=== PATIENT | male | born 1950 | race Caucasian/White ===

== ENCOUNTER 2017-09-10 09:45 | Inpatient (IN) ==
[~2017-09-10 09:45] MED LIST: *HR* Midazolam HCl 5 MG/5 ML VIAL IVP ONE
[2017-09-10] MEDS ORDERED: Ondansetron 4 MG/2 ML VIAL IVP ONE (10:05)
[2017-09-10] MEDS ORDERED: *HR* HYDROmorphone (PF) 1 MG/ML SYRINGE IVP ONE ×4 (10:05→13:22)
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
[2017-09-10] MEDS ORDERED: *HR* Morphine 2 MG/ML SYRINGE IVP ONE (12:02)
[2017-09-10] MEDS ORDERED: Lidocaine -MPF 2% 5 ML VIAL ONE (12:20)
[2017-09-10 12:27] LABS: Bilirubin,Urine Negative (Negative); Blood,Urine Negative (Negative); Clarity,Urine Clear (Clear); Color,Urine Yellow (Yellow); Glucose,Urine (UA) Normal (Normal); Ketones,Urine Negative (Negative); Leukocyte Esterase,Urine Negative (Negative); Nitrite,Urine Negative (Negative); PH,Urine 5.5 pH Units (5.0-8.0); Protein,Urine Negative (Neg-Trace); Specific Gravity,Urine 1.024 (1.010-1.025); Urobilinogen,Urine Normal (Normal)
[2017-09-10] MEDS ORDERED: cefTRIAXone 1,000 MG in Water for inj. (sterile) 10 ML IVP ONE (12:39)
[2017-09-10 12:50] LABS: Source,Synovial Fluid RIGHT KNEE
[2017-09-10 13:21] LABS: BUN/Creatinine Ratio 26 (6-26); Blood Urea Nitrogen 33 mg/dL (8-26); Calcium 9.2 mg/dL (8.6-10.8); Carbon Dioxide 25 mEq/L (19-29); Chloride 99 mEq/L (98-109); Glucose 278 mg/dL (70-99); Osmolality,Calculated 295 (280-300); Potassium 4.6 mEq/L (3.5-4.5); Sodium 134 mEq/L (136-145); eGFR For African Americans > 60 (> 60); eGFR For Non-African Americans 57 (> 60)
[2017-09-10] MEDS ORDERED: *HR* HYDROmorphone (PF) 1 MG/ML SYRINGE ONE (13:27)
[2017-09-10 13:54] LABS: Appearance,Synovial Fluid Cloudy (Clear-Hazy); Color,Synovial Fluid Straw (Straw)
[2017-09-10] MEDS ORDERED: Ondansetron 4 MG/2 ML VIAL IVP PRN (14:25)
[2017-09-10] MEDS ORDERED: Acetaminophen 325 MG TABLET PO PRN (14:25)
[2017-09-10] MEDS ORDERED: Naloxone 0.4 MG/ML INJ IVP PRN (14:25)
[2017-09-10] MEDS ORDERED: D5% in Water 1,000 ML IVC PRN (14:30)
[2017-09-10] MEDS ORDERED: *HR* Dextrose 50 % in Water (Syg) 50 ML SYRINGE IVP PRN (14:30)
[2017-09-10] MEDS ORDERED: Dextrose Gel 15 GM PO PRN ×2 (14:30)
[2017-09-10] MEDS: Vancomycin 1,500 MG in D5% in Water 250 ML IVPB SCH (14:55)
[2017-09-10] MEDS: *HR* Morphine 2 MG/ML SYRINGE IVP PRN ×2 (14:55→20:16)
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
[2017-09-10] MEDS: 0.9 % Sodium Chloride 1,000 ML IVC SCH (15:08)
[2017-09-10] MEDS: Insulin LISPRO 300 UNITS/3 ML VIAL SQ SCH ×2 (17:13→20:11)
[2017-09-10] MEDS: Piperacillin/Tazobactam 3.375 GM in D5% in Water 50 ML IVPB SCH (17:14)
[2017-09-10] MEDS ORDERED: *HR* HYDROmorphone (PF) 1 MG/ML SYRINGE IVP PRN (17:26)
[2017-09-10] MEDS: *HR* HYDROcodone/Acet 5/325 mg TABLET PO PRN (18:08)
[2017-09-11] MEDS: *HR* Morphine 2 MG/ML SYRINGE IVP PRN ×5 (00:24→19:49)
[2017-09-11] MEDS: Vancomycin 1,500 MG in D5% in Water 250 ML IVPB SCH ×2 (00:24→12:31)
[2017-09-11] MEDS: Piperacillin/Tazobactam 3.375 GM in D5% in Water 50 ML IVPB SCH ×4 (00:25→23:21)
[2017-09-11] MEDS: *HR* HYDROcodone/Acet 5/325 mg TABLET PO PRN ×4 (01:47→23:09)
[2017-09-11] MEDS: 0.9 % Sodium Chloride 1,000 ML IVC SCH ×2 (04:46→18:36)
[2017-09-11 05:45] LABS: Hematocrit 36.5 % (37.5-50.1); Hemoglobin 11.7 g/dL (12.9-16.9); Mean Corpuscular HGB Conc 32.1 g/dL (31.6-35.5); Mean Platelet Volume 10.5 fL (9.4-12.4)
[2017-09-11 05:47] LABS: Mean Corpuscular Hemoglobin 28.2 pg (28.0-33.3); Platelet Count 185 K/mcL (140-400); Red Blood Count 4.15 M/mcL (4.19-5.50); Red Cell Distribution Width 14.1 % (11.5-14.5)
[2017-09-11 05:58] LABS: BUN/Creatinine Ratio 24 (6-26); Blood Urea Nitrogen 29 mg/dL (8-26); Calcium 8.8 mg/dL (8.6-10.8); Carbon Dioxide 23 mEq/L (19-29); Chloride 99 mEq/L (98-109); Glucose 214 mg/dL (70-99); Magnesium 1.6 mg/dL (1.6-2.6); Osmolality,Calculated 288 (280-300); Sodium 133 mEq/L (136-145); eGFR For African Americans > 60 (> 60); eGFR For Non-African Americans > 60 (> 60)
[2017-09-11 06:08] LABS: Lymphocytes # 6.1 K/mcL (0.6-4.6); Neutrophils # 17.2 K/mcL (1.6-8.9); Platelet Estimate Normal (Normal); Reactive Lymphocytes Present (Not Present)
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
[2017-09-11] MEDS: Aspirin Enteric Coated 81 MG Tablet PO SCH (07:54)
[2017-09-11] MEDS: Insulin LISPRO 300 UNITS/3 ML VIAL SQ SCH ×4 (07:55→20:54)
--- NOTE | 2017-09-11 12:02 | Internal Med Progress Note ---
Date of Encounter: 09/11/17 Time of Encounter: 10:00 - Assessment and plan (1) Septic joint Current Visit: Yes Status: Acute Assessment and plan: Acute right knee septic joint - with possible prosthetic joint infection - right knee pain has improved Continue IV Zosyn, IV Vancomycin, IV Morphine as needed for pain CT of the right knee - reviewed S/p right knee joint aspiration done in the ED Orthopedics consult - scheduled for surgery tomorrow Labs in a.m., monitor closely Qualifiers: Septic arthritis location: knee Septic arthritis organism: due to unspecified organism Laterality: right Qualified Code(s): M00.9 - Pyogenic arthritis, unspecified (2) TITUS (acute kidney injury) Current Visit: Yes Status: Acute Assessment and plan: Acute kidney injury likely secondary to sepsis and septic joint - now back to baseline Continue IV fluids, repeat labs in a.m. Zestril can be be restarted today (3) Diabetes mellitus Current Visit: Yes Status: Chronic Assessment and plan: Type 2 diabetes mellitus, [id number], hyperglycemia Continue insulin sliding scale, glucose checks Qualifiers: Diabetes mellitus type: type 2 Diabetes mellitus complication status: without complication Diabetes mellitus penitentiary insulin use: without emt intermediate use Qualified Code(s): E11.9 - Type 2 diabetes mellitus without complications (4) HTN (hypertension) Current Visit: Yes Status: Chronic Assessment and plan: Essential hypertension, controlled, monitor Continue home dose of Zestril Qualifiers: Hypertension type: essential hypertension Qualified Code(s): I10 - Essential (primary) hypertension (5) DVT prophylaxis Current Visit: Yes Status: Acute Assessment and plan: Continue heparin subcutaneous - Time Spent With Patient 25 - 35 minutes - Subjective Interval history: Examined this morning. Patient is awake and alert. Not in any distress. Tolerating oral diet. Denies chest pain or shortness of breath. No fever. Hemodynamically stable. Complains of mild pain and swelling over right knee. No other acute events or complaints. Admitted yesterday for right knee septic joint. Possible infection of prosthetic joint. Continue IV buttocks for now. Scheduled for surgery tomorrow. Orthopedics following. - Constitutional Vitals: Temp Pulse Resp BP Pulse Ox 98.3 F 112 18 112/66 93 09/11/17 11:21 09/11/17 11:21 09/11/17 11:21 09/11/17 11:21 09/11/17 11:21 General appearance: Present: cooperative, A&O X 3, pleasant, no acute distress, answers questions appropriately - Head Head exam: Present: atraumatic - Eye Eye exam: Present: EOMI - ENT ENT exam: Present: mucous membranes moist - Respiratory Respiratory exam: Present: CTAB. Absent: accessory muscle use, chest wall tenderness, rales, rhonchi, wheezes, tachypnea - Cardiovascular Cardiovascular exam: Present: RRR, +S1, +S2 - GI/Abdominal GI/Abdominal exam: Present: soft. Absent: distended, firm, guarding, tenderness - Extremities Exam Extremities exam: Present: radial pulses palpable and symmetrical. Absent: calf tenderness, cyanotic, pedal edema Additional comments: Status post right BKA, distal third tibial stump with no evidence of erythema or concern for infection. Patient does have significant swelling and tenderness over right knee. - Neurological Exam Neurological exam: Present: alert, oriented X3, no focal deficits. Absent: facial droop, speech deficit Internal Medicine: Result - Labs CBC & Chem 7: 09/11/17 05:20 09/11/17 05:20 Labs: Short CBC 09/11/17 Range/Units 05:20 WBC 25.3 H (4.3-11.1) K/mcL Hgb 11.7 L (12.9-16.9) g/dL Hct 36.5 L (37.5-50.1) % Plt Count 185 (140-400) K/mcL Neutrophils # 17.2 H (1.6-8.9) K/mcL BMP 09/11/17 05:20 Sodium 133 L Potassium 4.0 Chloride 99 Carbon Dioxide 23 BUN 29 H Creatinine 1.20 Glucose 214 H Calcium 8.8 - VTE Documentation of Mechanical Device: Intermittent pneumatic compression device Consult Discharge Plan - Plan Referrals: Casey Monroy DO [Primary Care Provider] -
[2017-09-11] MEDS ORDERED: *HR* Morphine 2 MG/ML SYRINGE IVP ONE (12:26)
[2017-09-11 14:11] LABS: Acinetobacter baumannii by PCR Not Detected (Not Detect); Candida albicans by PCR Not Detected (Not Detect); Candida glabrata by PCR Not Detected (Not Detect); Candida krusei by PCR Not Detected (Not Detect); Candida parapsilosis by PCR Not Detected (Not Detect); Enterococcus by PCR Not Detected (Not Detect); Escherichia coli by PCR Not Detected (Not Detect); Klebsiella oxytoca by PCR Not Detected (Not Detect); Klebsiella pneumoniae by PCR Not Detected (Not Detect); Pseudomonas aeruginosa by PCR Not Detected (Not Detect); Serratia marcescens by PCR Not Detected (Not Detect); Staphylococcus aureus by PCR Not Detected (Not Detect); Streptococcus agalactiae(B)PCR Not Detected (Not Detect); Streptococcus by PCR ***DETECTED*** (Not Detect); Streptococcus pneumoniae PCR Not Detected (Not Detect); Streptococcus pyogenes (A) PCR Not Detected (Not Detect); blaKPC Carbapenem-Resist Gene Not Detected (Not Detect); mecA Methicillin-Resist Gene Not Detected (Not Detect); vanA/B Vancomycin-Resist Genes Not Detected (Not Detect)
[2017-09-11 14:12] LABS: Candida tropicalis by PCR Not Detected (Not Detect)
[2017-09-11] MEDS: *HR* Heparin 5,000 UNIT/ML VIAL SQ SCH (16:35)
[2017-09-11] MEDS: Lisinopril 20 MG TABLET PO SCH (21:35)
[2017-09-12] MEDS: Vancomycin 1,500 MG in D5% in Water 250 ML IVPB SCH ×2 (01:41→14:37)
[2017-09-12] MEDS: *HR* Morphine 2 MG/ML SYRINGE IVP PRN ×2 (05:34→16:19)
[2017-09-12] MEDS: *HR* Heparin 5,000 UNIT/ML VIAL SQ SCH ×2 (05:34→22:55)
[2017-09-12 05:48] LABS: Basophils % 0.2 %; Hematocrit 33.7 % (37.5-50.1); Hemoglobin 10.8 g/dL (12.9-16.9); Immature Granulocytes % 1.1 % (0-4); Lymphocytes # 3.7 K/mcL (0.6-4.6); Lymphocytes % 18.3 %; Mean Corpuscular Volume 87.3 fL (83.0-100.0); Mean Platelet Volume 10.7 fL (9.4-12.4); Monocytes # 1.6 K/mcL (0.0-1.3); Monocytes % 7.9 %; Neutrophils # 14.8 K/mcL (1.6-8.9); Platelet Count 174 K/mcL (140-400); Red Blood Count 3.86 M/mcL (4.19-5.50); Red Cell Distribution Width 13.9 % (11.5-14.5); Segmented Neutrophils % 72.5 %
[2017-09-12 06:09] LABS: BUN/Creatinine Ratio 23 (6-26); Blood Urea Nitrogen 24 mg/dL (8-26); Calcium 8.7 mg/dL (8.6-10.8); Carbon Dioxide 24 mEq/L (19-29); Chloride 99 mEq/L (98-109); Glucose 213 mg/dL (70-99); Osmolality,Calculated 284 (280-300); Potassium 3.9 mEq/L (3.5-4.5); Sodium 132 mEq/L (136-145); eGFR For African Americans > 60 (> 60); eGFR For Non-African Americans > 60 (> 60)
--- NOTE | 2017-09-12 07:45 | Orthopedics Progress Note ---
Date of Encounter: 09/12/17 Time of Encounter: 07:44 Subjective Interval history: Patient seen this morning positive blood cultures for surgery today for 1 stage revision based on positive blood cultures. Cultures for knee still pending. Objective Vital signs: Vital Signs Temp Pulse Resp BP Pulse Ox 09/12/17 06:40 98.8 F 102 16 148/87 96 09/12/17 03:50 99.2 F 108 18 155/83 94 09/11/17 23:47 99.0 F 118 18 151/81 95 09/11/17 22:27 99.2 F 121 18 154/80 94 09/11/17 21:40 98.2 F 121 18 162/86 96 09/11/17 20:00 97 09/11/17 19:00 99.1 F 113 16 108/51 97 09/11/17 15:01 99.8 F H 115 20 115/55 93 09/11/17 13:34 102/62 09/11/17 11:21 98.3 F 112 18 112/66 93 Intake and Output 09/11/17 09/11/17 09/12/17 15:59 23:59 07:59 Intake Total 1150 / 1150 540 / 540 300 / 300 Output Total 300 / 300 550 / 550 200 / 200 Balance 850 / 850 -10 / -10 100 / 100 Intake: IV Fluids 1050 / 1050 300 / 300 300 / 300 0.9 % Sodium Chloride 1,000 ML 1000 / 1000 @ 100 mls/hr IVC .Q10H [place] Rx#: [id number] Zosyn 3.375 GM In Dextrose 5% ( 50 / 50 50 / 50 50 / 50 ADD-[place]) 50 ML @ 12.5 mls/ hr IVPB Q8HR [place] Rx#:[id number] Vancocin 1,500 MG In Dextrose 5 250 / 250 250 / 250 % 250 ML @ 166.67 mls/hr IVPB Q12H [place] Rx#:[id number] Oral 100 / 100 240 / 240 Output: Urine 300 / 300 550 / 550 200 / 200 Other: Meal Lunch Dinner Percent of Meal Consumed 10% 50% Weight 90 kg Blood Glucose* 226 191 190 Patient Weight 09/12/17 23:59 Weight 90 kg - Labs CBC & BMP: 09/12/17 04:53 09/12/17 04:53 Labs: Abnormal lab results WBC 20.4 K/mcL (4.3-11.1) H 09/12/17 04:53 RBC 3.86 M/mcL (4.19-5.50) L 09/12/17 04:53 Hgb 10.8 g/dL (12.9-16.9) L 09/12/17 04:53 Hct 33.7 % (37.5-50.1) L 09/12/17 04:53 Band Neutrophils % 10.0 % (0-4) H 09/11/17 05:20 Neutrophils # 14.8 K/mcL (1.6-8.9) H 09/12/17 04:53 Monocytes # 1.6 K/mcL (0.0-1.3) H 09/12/17 04:53 Reactive Lymphocytes Present (Not Present) A 09/11/17 05:20 ESR 67 mm/hr (0-10) H 09/11/17 05:20 Sodium 132 mEq/L (136-145) L 09/12/17 04:53 Glucose 213 mg/dL (70-99) H 09/12/17 04:53 POC Glucose 191 (58-89) H 09/11/17 20:06 C-Reactive Protein 424 mg/L (Less than 5) H 09/11/17 05:20 Synovial Appearance Cloudy (Clear-Hazy) A 09/10/17 12:48 Synovial RBC 0.196 M/mcl (0.000-0.002) H 09/10/17 12:48 Synovial Tot Nuc Cell > [id number] TNC/mcL (0-200) H 09/10/17 12:48 Streptococcus sp PCR DETECTED (Not Detect) A 09/10/17 12:22 - VTE Documentation of Mechanical Device: Intermittent pneumatic compression device Consult Discharge Plan - Plan Referrals: Casey Monroy DO [Primary Care Provider] -
[2017-09-12] MEDS ORDERED: Aminoglycoside Consult 1 EACH MC ONE (08:05)
[2017-09-12] MEDS: Piperacillin/Tazobactam 3.375 GM in D5% in Water 50 ML IVPB SCH ×2 (08:09→22:55)
[2017-09-12] MEDS: Lisinopril 20 MG TABLET PO SCH (08:09)
[2017-09-12] MEDS: Insulin LISPRO 300 UNITS/3 ML VIAL SQ SCH ×3 (08:09→22:55)
[2017-09-12] MEDS: Aspirin Enteric Coated 81 MG Tablet PO SCH (08:11)
[2017-09-12] MEDS ORDERED: Lidocaine Viscous Oral Soln 15 ML SOLUTION MM PRN (10:31)
[2017-09-12] MEDS ORDERED: *HR* FentaNYL (PF) 100 MCG/2 ML VIAL IVP PRN (10:31)
[2017-09-12] MEDS ORDERED: 0.9 % Sodium Chloride 500 ML IVC ONE (10:32)
[2017-09-12] MEDS ORDERED: *HR* Midazolam HCl 5 MG/5 ML VIAL IVP PRN (10:32)
[2017-09-12] MEDS ORDERED: Tetracaine/Benzocaine/Butamben 200MG/SPRAY (100SPY/BOT) MM ONE (10:32)
--- NOTE | 2017-09-12 16:00 | Internal Med Progress Note ---
Date of Encounter: 09/12/17 Time of Encounter: 07:50 - Assessment and plan (1) Septic joint Current Visit: Yes Status: Acute Assessment and plan: Acute right knee septic joint - with possible prosthetic joint infection, with sepsis present on admission - right knee pain improved Continue IV Zosyn, IV Vancomycin, IV Morphine as needed for pain CT of the right knee - reviewed Blood cultures - positive for Streptococcus Joint fluid culture - pending S/p right knee joint aspiration done in the ED Orthopedics consult - scheduled for surgery today Labs in a.m., monitor closely Qualifiers: Septic arthritis location: knee Septic arthritis organism: due to unspecified organism Laterality: right Qualified Code(s): M00.9 - Pyogenic arthritis, unspecified (2) Positive blood culture Current Visit: Yes Status: Acute Assessment and plan: Sepsis with blood culture positive for Streptococcus - likely due to right knee joint infection Continue IV Zosyn, IV Vancomycin, Tylenol PRN KEYA - pending, rule out valvular vegetation Awaiting sensitivities (3) TITUS (acute kidney injury) Current Visit: Yes Status: Acute Assessment and plan: Acute kidney injury likely secondary to sepsis and septic joint - now back to baseline Continue IV fluids, repeat labs in a.m. Zestril has been restarted (4) Diabetes mellitus Current Visit: Yes Status: Chronic Assessment and plan: Type 2 diabetes mellitus, [id number], hyperglycemia Continue insulin sliding scale, glucose checks HbA1c - pending Qualifiers: Diabetes mellitus type: type 2 Diabetes mellitus complication status: without complication Diabetes mellitus correction insulin use: without beater engineer use Qualified Code(s): E11.9 - Type 2 diabetes mellitus without complications (5) HTN (hypertension) Current Visit: Yes Status: Chronic Assessment and plan: Essential hypertension, controlled, monitor Continue home dose of Zestril Qualifiers: Hypertension type: essential hypertension Qualified Code(s): I10 - Essential (primary) hypertension (6) DVT prophylaxis Current Visit: Yes Status: Acute Assessment and plan: Continue Heparin subcutaneous - Time Spent With Patient 25 - 35 minutes - Subjective Interval history: Examined this morning. Patient is awake and alert. Not in any distress. Tolerating oral diet. Denies chest pain or shortness of breath. No fever. Hemodynamically stable. Patient does have tachycardia. Complains of pain and swelling over right knee, worse with movement. No other acute events or complaints. Admitted for right knee septic joint. Possible infection of prosthetic joint. Continue IV antibiotics for now. Scheduled for surgery today. Orthopedics following. - Constitutional Vitals: Temp Pulse Resp BP Pulse Ox 98.2 F 107 16 136/75 93 09/12/17 10:50 09/12/17 10:50 09/12/17 10:50 09/12/17 10:50 09/12/17 10:50 General appearance: Present: cooperative, A&O X 3, pleasant, no acute distress, answers questions appropriately - Head Head exam: Present: atraumatic - Eye Eye exam: Present: EOMI - ENT ENT exam: Present: mucous membranes moist - Respiratory Respiratory exam: Present: CTAB. Absent: accessory muscle use, chest wall tenderness, rales, respiratory distress, rhonchi, wheezes, tachypnea - Cardiovascular Cardiovascular exam: Present: RRR, +S1, +S2 - GI/Abdominal GI/Abdominal exam: Present: soft. Absent: distended, firm, guarding, tenderness - Extremities Exam Extremities exam: Present: radial pulses palpable and symmetrical. Absent: cyanotic, pedal edema Additional comments: Status post right BKA, distal third tibial stump with no evidence of erythema or concern for infection. Patient does have significant swelling and tenderness over right knee, with limited range of motion. - Neurological Exam Neurological exam: Present: alert, oriented X3, no focal deficits. Absent: facial droop, speech deficit Internal Medicine: Result - Labs CBC & Chem 7: 09/12/17 04:53 09/12/17 04:53 Labs: Short CBC 09/12/17 Range/Units 04:53 WBC 20.4 H (4.3-11.1) K/mcL Hgb 10.8 L (12.9-16.9) g/dL Hct 33.7 L (37.5-50.1) % Plt Count 174 (140-400) K/mcL Neutrophils # 14.8 H (1.6-8.9) K/mcL BMP 09/12/17 04:53 Sodium 132 L Potassium 3.9 Chloride 99 Carbon Dioxide 24 BUN 24 Creatinine 1.05 Glucose 213 H Calcium 8.7 - VTE Documentation of Mechanical Device: Intermittent pneumatic compression device Consult Discharge Plan - Plan Referrals: Casey Monroy DO [Primary Care Provider] -
--- NOTE | 2017-09-12 16:38 | Anesthesia Evaluation PreOp ---
Date of Encounter: 09/12/17 Time of Encounter: 18:05 - Past History Planned Operation: Right TKA revision Cardiac History: HTN, Hyperlipidemia Pulmonary History: Former smoker MARKET PRESIDENT History: Denies Any Significant HX Other Medical History: Renal (TITUS this admission), Diabetes Type II, Other ( Mantle cell lymphoma hx) Anesthesia History: No Prior Anesthetic Complications, Past Anesthesia (right TKA 10 yrs ago, Right foot amputation) Alcohol Use: occasionally Drug use: none Medications and Allergies Aspirin [Adult Low Dose Aspirin EC] 81 mg PO DAILY 12/25/15 [History] Celecoxib [Celebrex] 100 mg PO BID 12/25/15 [History] Cholecalciferol (Vitamin D3) [Vitamin D3] 1,000 unit PO BID 12/25/15 [History] Cyanocobalamin (Vitamin B-12) [Vitamin B12] 1,000 mcg PO BID 12/25/15 [History] Cyclobenzaprine [Flexeril] 10 mg PO TID PRN 12/25/15 [History] Furosemide [Lasix] 40 mg PO DAILY 12/25/15 [History] Lisinopril [Zestril] 20 mg PO BID 12/25/15 [History] Pantoprazole Sodium [Protonix] 40 mg PO DAILY 12/25/15 [History] Sertraline [Zoloft] 100 mg PO DAILY 12/25/15 [History] Tamsulosin [Flomax] 0.4 mg PO DAILY 12/25/15 [History] Zolpidem [Ambien] 10 mg PO HS 12/25/15 [History] metFORMIN [Glucophage] 1,000 mg PO BIDWM 12/25/15 [History] Cinnamon Bark [Cinnamon] 500 mg PO BID 09/09/17 [History] 3 Allergy/AdvReac Type Severity Reaction Status Date / Time No Known Allergies Allergy Verified 12/25/15 14:52 - Meds/Allergy Pre-op Review Medications Reviewed: Yes Allergies Reviewed: Yes Beta Blockers on Current Med List: No Anesthesia Results - Labs 09/12/17 04:53 09/12/17 04:53 Laboratory Tests 01/14/16 10/06/16 09/12/17 08:02 09:49 04:53 Hgb 10.8 L Hct 33.7 L Plt Count 174 PT 10.3 INR 1.0 APTT 29.0 Sodium Potassium BUN Creatinine Hemoglobin A1c 7.0 H 09/12/17 04:53 Hgb Hct Plt Count PT INR APTT Sodium 132 L Potassium 3.9 BUN 24 Creatinine 1.05 Hemoglobin A1c - Imaging Additional studies: echo: Impressions: LVEF 60%. Normal LV size and function. Right ventricle was normal in size and systolic function. Mild mitral regurgitation. Mild tricuspid regurgitation. Moderate pulmonary hypertension. No evidence of endocarditis on this study. Anesthesia Exam Selected Entries 09/12/17 08:10 09/12/17 10:50 Temperature 98.2 F Pulse Rate 107 Pulse Strength Normal Respiratory Rate 16 Blood Pressure 136/75 O2 Sat by Pulse Oximetry 93 Oxygen Flow Rate (LPM) 2 Oxygen Delivery Method Nasal Cannula Weight: 90kg NPO (# of Hours): 8 - HEENT Pupil (Motor): EOMI Mallampati: III Teeth: Missing, Poor dentition Oral Opening: Greater than 3 - MARKET PRESIDENT LOC: Oriented MARKET PRESIDENT Motor: Normal RUE, Normal LUE, Normal RLE, Normal LLE, Normal Face MARKET PRESIDENT Sensory: Normal: RUE, LUE, RLE, LLE, Face - Cardiac Rhythm: Regular Murmur: None - Pulmonary Breath Sounds: bilateral Clear Respiratory Effort: Symmetrical Anesthesia Assess/Plan ASA Score: 2 Anesthetic Plan: General Monitoring Plan: Standard Monitors Recovery Plan: PACU (discussed GA, agrees to proceed)
[2017-09-12] MEDS ORDERED: Ethanol\\Acetic Acid\\Na Ace\\Ben 1,000 ML IRRIG.SOLN IR ONE ×2 (18:39→18:43)
[2017-09-12] MEDS ORDERED: Ondansetron 4 MG/2 ML VIAL ONE ×2 (18:42→20:14)
[2017-09-12] MEDS ORDERED: *HR* FentaNYL (PF) 100 MCG/2 ML VIAL ONE ×2 (18:42→19:48)
[2017-09-12] MEDS ORDERED: Lidocaine -MPF 2% 2 ML VIAL ONE (18:42)
[2017-09-12] MEDS ORDERED: *HR* Propofol 200 MG/20 ML VIAL IVP ONE ×2 (18:43→19:39)
[2017-09-12] MEDS ORDERED: *HR* Midazolam HCl 2 MG/2 ML VIAL ONE (18:43)
[2017-09-12] MEDS ORDERED: *HR* Succinylcholine 200 MG/10 ML VIAL IVP ONE (19:22)
[2017-09-12] MEDS ORDERED: Esmolol 100 MG/10 ML VIAL IVP ONE ×2 (19:37→22:53)
[2017-09-12] MEDS ORDERED: *HR* HYDROmorphone 2 MG/ML SYRINGE ONE (19:49)
[2017-09-12] MEDS ORDERED: Dexamethasone 4 MG/ML VIAL ONE (20:14)
[2017-09-12] MEDS ORDERED: *HR* Magnesium Sulfate 1 GM/2 ML VIAL ONE (20:19)
--- NOTE | 2017-09-12 20:24 | Orthopedic Operative Note ---
Date of procedure: 09/12/17 Pre-op diagnosis: Infected right total knee Post-op diagnosis: same (Significant tachycardia rate 120s) Procedure: Procedure: Right knee arthrotomy irrigation debridement synovectomy poly- exchange Estimated blood loss 200 mL Hardware 9 mm Molly for size 3 right Natural-Knee cruciate retaining Findings: Patient brought to the operating placed on the operative table after monitors were applied patient noted to have tachycardia 120. Poorly responsive to medication. Decision was made the patient was at a high risk date triggering factor could be septicemia. Decision was made to do arthrotomy with polyethylene exchange and to avoid the longer revision procedure. Although this was part of the consent it was discussed with the patient what he was on the operating room table he seemed to understand to the best of his ability. Procedure: Right lower extremity is prepped and draped in sterile surgical fashion patient received IV antibiotics prior skin incision. Longitudinal incision was made through old incision through skin and subcutaneous tissue hemostasis was obtained Bovie cautery using careful sharp dissection extensor mechanism was identified, a medial parapatellar tendon approach was performed pus was encountered immediately upon entering the joint. This was cultured. A medial arthrotomy was performed extensive synovectomy was performed the poly- was removed. The knee was irrigated with 1 L of an antibacterial solution. It was then irrigated with 1.5 L of pulse normal saline. A new poly-was then placed sized and 9 mm for a 3 right is was seated and secured. The knee then sat for 2 minutes with a Betadine saline solution. It was irrigated out 1.5 L pulse irrigation the extensor mechanism was closed with a running #2 PDS suture superficially with #1 PDS suture skin was closed with skin maurice patient placed out dressing postoperative brace transferred to recovery room intubated in stable condition. Anesthesia: GETA Surgeon: Himanshu Barney Condition: stable Disposition: PACU
--- NOTE | 2017-09-12 20:46 | Event Note ---
Date of Encounter: 09/12/17 Time of Encounter: 20:15 Communicated intraop tachycardia and orders to Dr. Germain.
[2017-09-12 20:58] LABS: Hematocrit 31.7 % (37.5-50.1); Hemoglobin 10.3 g/dL (12.9-16.9)
--- NOTE | 2017-09-12 23:31 | Anesthesia Evaluation Post Op ---
Date of Encounter: 09/12/17 Time of Encounter: 23:27 - Vital Signs Vital Signs: Vital Signs/O2 Sat/Glucose, Most Current Temp Pulse Resp BP Pulse Ox 09/12/17 23:05 110 20 132/73 95 09/12/17 22:55 203 20 102/81 94 09/12/17 22:45 102 20 113/80 95 09/12/17 22:35 98.2 F 111 16 129/80 96 09/12/17 22:25 112 18 129/80 95 09/12/17 22:15 108 12 131/76 96 09/12/17 22:05 98.3 F 112 16 132/63 92 09/12/17 21:55 112 16 132/69 94 09/12/17 21:45 111 16 128/71 94 09/12/17 21:35 116 18 128/74 93 09/12/17 21:25 120 18 126/79 92 09/12/17 21:15 120 13 125/75 92 09/12/17 21:05 97.5 F L 123 16 121/53 94 09/12/17 20:55 114 14 135/96 90 09/12/17 20:45 107 12 120/72 97 09/12/17 20:35 98.2 F 109 20 107/65 97 - Lungs Lungs: Clear Ascult./Percussion - Airway Airway: Non-obstructed - Cardiovascular Regular Rate, New Rhythm (Pt demonstrated episoded of SVT [HR = 200] at at the beginnning of orthopedic case and intraoperatively for a total of 3 episodes in the OR which all responded well to Esmolol - HR 110s. Pt sustained 1 additional episode of HR = 203 in PACU which also responded well to Esmolol. Hospitalist has been constacted by Dr. Barney's team. Pt to be transferred to for further cardiac surveillance and treatment.) - Pain Pain Scale: 2 Pain Scale used: Numeric (1 - 10) - Nausea Vomiting Nausea Vomiting: Not Present - Hydration Hydration: Ice chips, Has not voided - Discharge PostOp Status: Transfer Patient to floor Anes Supervising Prov Stmt: Pt seen/evaluated, VSS despite episode of SVT/HR = 203 in PACU. Pt otherwise doing well and has met criteria for transport to floor. - MD Ita
[2017-09-13] MEDS: 0.9 % Sodium Chloride 1,000 ML IVC SCH ×4 (00:11→05:34)
[2017-09-13] MEDS: Lisinopril 20 MG TABLET PO SCH ×2 (00:11→07:36)
[2017-09-13] MEDS: *HR* Morphine 2 MG/ML SYRINGE IVP PRN (00:12)
[2017-09-13] MEDS: Insulin LISPRO 300 UNITS/3 ML VIAL SQ SCH ×4 (00:12→16:32)
[2017-09-13] MEDS: Piperacillin/Tazobactam 3.375 GM in D5% in Water 50 ML IVPB SCH ×2 (00:13→07:33)
[2017-09-13] MEDS: Vancomycin 1,500 MG in D5% in Water 250 ML IVPB SCH (00:14)
[2017-09-13] MEDS ORDERED: *HR* LORazepam 2 MG/ML VIAL ONE (01:19)
[2017-09-13] MEDS ORDERED: 0.9 % Sodium Chloride 500 ML IVC ONE (01:24)
[2017-09-13] MEDS ORDERED: *HR* LORazepam 2 MG/ML VIAL IVP ONE ×4 (01:24→08:02)
[2017-09-13 01:50] LABS: Basophils % 0.2 %; Hemoglobin 10.5 g/dL (12.9-16.9); Immature Granulocytes % 2.1 % (0-4); Red Cell Distribution Width 14.3 % (11.5-14.5)
[2017-09-13 01:52] LABS: Basophils # 0.1 K/mcL (0.0-0.2); Hematocrit 33.2 % (37.5-50.1); Lymphocytes # 6.3 K/mcL (0.6-4.6); Lymphocytes % 23.6 %; Mean Corpuscular HGB Conc 31.6 g/dL (31.6-35.5); Mean Corpuscular Hemoglobin 28.3 pg (28.0-33.3); Mean Corpuscular Volume 89.5 fL (83.0-100.0); Mean Platelet Volume 10.3 fL (9.4-12.4); Monocytes # 2.5 K/mcL (0.0-1.3); Monocytes % 9.5 %; Platelet Count 193 K/mcL (140-400); Red Blood Count 3.71 M/mcL (4.19-5.50); Segmented Neutrophils % 64.6 %
[2017-09-13 01:54] LABS: Neutrophils # 17.3 K/mcL (1.6-8.9)
[2017-09-13] MEDS ORDERED: *HR* Adenosine 6 MG/2 ML VIAL IVP ONE ×2 (02:00→02:02)
[2017-09-13 02:04] LABS: VBG HCO3 21 mEq/L (21-27); VBG PCO2 56 mmHg (41-51); VBG PH 7.19 pH Units (7.32-7.42); VBG PO2 86 mmHg (25-50)
[2017-09-13 02:07] LABS: Albumin 2.6 g/dL (3.5-5.0); Albumin/Globulin Ratio 0.7 (1.1-2.2); Bilirubin,Total 1.1 mg/dL (0.2-1.2); Calcium 8.7 mg/dL (8.6-10.8); Calcium 8.8 mg/dL (8.6-10.8); Globulin 3.8 g/dL (2.4-3.5); Potassium 4.4 mEq/L (3.5-4.5); Potassium 4.5 mEq/L (3.5-4.5); Total Protein 6.4 g/dL (6.0-8.3)
[2017-09-13] MEDS ORDERED: Amiodarone Premix 150 MG/100 ML BAG IVPB ONE ×2 (02:11→02:12)
[2017-09-13] MEDS ORDERED: Amiodarone Premix 360 MG/200 ML BAG IVC ONE ×2 (02:11→02:12)
[2017-09-13] MEDS ORDERED: *HR* LORazepam 2 MG/ML VIAL IVP PRN (02:12)
[2017-09-13] MEDS ORDERED: 0.9 % Sodium Chloride 1,000 ML IVC ONE (02:12)
[2017-09-13 02:13] LABS: Hemoglobin A1C 8.8 %
[2017-09-13 02:19] LABS: ABG Base Excess -4 mEq/L (-2 to 3); ABG HCO3 21 mEq/L (21-27); ABG Oxygen Saturation 98 % (95-98); ABG PCO2 36 mmHg (35-45); ABG PH 7.37 pH Units (7.32-7.45); ABG PO2 104 mmHg (85-104); ABG TCO2 22 mEq/L (20-26)
[2017-09-13] MEDS ORDERED: Dexmedetomidine HCl 400 MCG/100 ML MLS IVC ONE (02:24)
[2017-09-13 02:28] LABS: Platelet Estimate Normal (Normal); Reactive Lymphocytes Present (Not Present)
[2017-09-13] MEDS ORDERED: Dexmedetomidine HCl 400 MCG/100 ML MLS IVC SCH ×2 (02:30→08:15)
[2017-09-13] MEDS: Amiodarone Premix 360 MG/200 ML BAG IVC SCH ×2 (02:41→08:02)
[2017-09-13] MEDS: *HR* Heparin 5,000 UNIT/ML VIAL SQ SCH ×2 (05:34→17:46)
[2017-09-13] MEDS: Aspirin Enteric Coated 81 MG Tablet PO SCH ×2 (07:34→10:31)
[2017-09-13] MEDS: *HR* HYDROcodone/Acet 5/325 mg TABLET PO PRN (07:35)
[2017-09-13 07:43] LABS: Basophils % 0.2 %; Eosinophils % 0.1 %; Hematocrit 27.5 % (37.5-50.1); Immature Granulocytes % 1.2 % (0-4); Lymphocytes # 5.5 K/mcL (0.6-4.6); Lymphocytes % 30.8 %; Mean Corpuscular HGB Conc 32.4 g/dL (31.6-35.5); Mean Corpuscular Hemoglobin 28.3 pg (28.0-33.3); Mean Corpuscular Volume 87.3 fL (83.0-100.0); Mean Platelet Volume 9.9 fL (9.4-12.4); Monocytes # 1.6 K/mcL (0.0-1.3); Monocytes % 8.7 %; Neutrophils # 10.6 K/mcL (1.6-8.9); Platelet Count 171 K/mcL (140-400); Red Blood Count 3.15 M/mcL (4.19-5.50); Red Cell Distribution Width 14.4 % (11.5-14.5)
[2017-09-13 07:54] LABS: Hemoglobin 8.9 g/dL (12.9-16.9)
[2017-09-13 07:55] LABS: Potassium 3.9 mEq/L (3.5-4.5)
[2017-09-13] MEDS ORDERED: *HR* Adenosine 6 MG/2 ML SYRINGE IVP ONE (08:04)
[2017-09-13] MEDS ORDERED: Ondansetron 4 MG/2 ML VIAL IVP PRN (08:19)
[2017-09-13] MEDS ORDERED: *HR* Dextrose 50 % in Water (Syg) 50 ML SYRINGE IVP PRN (08:19)
[2017-09-13] MEDS ORDERED: Naloxone 0.4 MG/ML INJ IVP PRN ×2 (08:19)
[2017-09-13] MEDS ORDERED: 0.9 % Sodium Chloride 1,000 ML IVC SCH (08:19)
[2017-09-13] MEDS ORDERED: Acetaminophen 325 MG TABLET PO PRN (08:19)
[2017-09-13] MEDS ORDERED: *HR* HYDROcodone/Acet 5/325 mg TABLET PO PRN (08:19)
[2017-09-13] MEDS ORDERED: Dextrose Gel 15 GM PO PRN ×2 (08:19)
[2017-09-13] MEDS ORDERED: *HR* Morphine 2 MG/ML SYRINGE IVP PRN (08:19)
[2017-09-13] MEDS ORDERED: D5% in Water 1,000 ML IVC PRN (08:19)
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
[2017-09-13] MEDS ORDERED: Ringers Solution, Lactated 500 ML IVC ONE (10:10)
[2017-09-13] MEDS: Dexmedetomidine HCl 400 MCG/100 ML MLS IVC SCH ×3 (10:15→20:34)
[2017-09-13] MEDS: Ringers Solution, Lactated 1,000 ML IVC SCH ×2 (10:47→12:46)
[2017-09-13] MEDS ORDERED: *HR* Etomidate 20 MG/10 ML AMPUL IVP ONE (10:52)
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
[2017-09-13] MEDS ORDERED: Amiodarone Premix 360 MG/200 ML BAG IVC SCH (11:45)
[2017-09-13] MEDS ORDERED: cefTRIAXone 2,000 MG in Water for inj. (sterile) 20 ML IVP SCH (12:00)
[2017-09-13] MEDS ORDERED: Vancomycin 1,500 MG in D5% in Water 250 ML IVPB SCH (13:00)
[2017-09-13] MEDS ORDERED: Phenylephrine 10 MG in D5% in Water 250 ML IVC SCH (13:00)
[2017-09-13] MEDS ORDERED: *HR* Midazolam HCl 5 MG/5 ML VIAL IVP ONE (14:23)
--- NOTE | 2017-09-13 15:03 | Procedure Note ---
Date of procedure: 09/13/17 Pre-op diagnosis: Septic Shock Post-op diagnosis: same Procedure: This was a central venous catheter placement for concern of septic shock. Initial procedure was planned in the right internal jugular position however once patient was in Trendelenburg he became significantly agitated despite increasing doses of sedation and it was deemed that it was unsafe to proceed in this position and the left femoral vein was subsequently cannulated as outlined below/ Procedures: Internal Med - Central Line Placement Left Femoral Consent Obtained: written consent Time out performed: Yes Patient placed on monitor/pulse ox: Yes MD prep: mask, gown, gloves, other Central line prep: Chlorhexidine scrub, sterile drapes applied, other Local anesthesia used: Lidocaine 1% Amount of anesthesia used (mls): 10 Ultrasound used for placement: Yes Central line lumen inserted: triple Post Procedure: sutured in place, good blood return, all ports aspirated, flushed, capped, sterile dressing applied, dark venous blood, biodisk applied Patient tolerated procedure: well, no complications Complications: none
[2017-09-13] MEDS ORDERED: Piperacillin/Tazobactam 3.375 GM in D5% in Water 50 ML IVPB SCH (16:00)
--- NOTE | 2017-09-13 16:09 | Orthopedics Progress Note ---
Date of Encounter: 09/13/17 Time of Encounter: 13:30 - Assessment and Plan (1) Septic joint Current Visit: Yes Status: Acute POD#1 - Right Knee - Poly exchange, washout and closure 09/13/17 - Awaiting cultures Intra-operative tachycardia, transferred to ICU. Seen in ICU today, on ventilator. During exam, patient was getting central line placed for BP management. Discussed patient's surgery and case with his . Will plan to monitor closely. Tscope brace placed, no knee ROM. Continue IV ABX and management with hospitalist/ICU team. Qualifiers: Septic arthritis location: knee Septic arthritis organism: due to unspecified organism Laterality: right Qualified Code(s): M00.9 - Pyogenic arthritis, unspecified Subjective Principal diagnosis: Right Knee - Poly Exchange, washout and closure 09/13/17 Interval history: POD#1 - Right Knee - Poly exchange, washout and closure 09/13/17 - Intra-operative tachycardia, transferred to ICU. Seen in ICU today, on ventilator. During exam, patient was getting central line placed for BP management. Discussed patient's surgery and case with his . Will plan to monitor closely. Tscope brace placed, no knee ROM. Continue IV ABX and management with hospitalist/ICU team. Objective Vital signs: Vital Signs Temp Pulse Resp BP Pulse Ox 09/13/17 15:36 17 90/62 69 09/13/17 15:33 17 79/57 97 09/13/17 13:11 25 78/55 96 09/13/17 13:05 25 78/55 96 09/13/17 12:58 80 22 77/51 97 09/13/17 11:31 98.0 F 09/13/17 11:23 73 18 124/54 97 09/13/17 11:18 73 18 124/54 97 09/13/17 11:11 16 85/55 96 09/13/17 10:35 75 18 80/46 98 09/13/17 09:30 82 14 89/49 99 09/13/17 09:06 18 89/43 99 09/13/17 08:22 85 14 101/59 98 09/13/17 07:57 16 108/61 99 09/13/17 07:21 97.9 F 09/13/17 06:20 17 99/62 98 09/13/17 06:00 84 17 99/62 98 09/13/17 05:00 86 17 103/61 98 09/13/17 04:30 18 119/59 94 09/13/17 04:00 97.8 F 90 18 119/59 94 09/13/17 03:00 98 21 102/92 93 09/13/17 02:48 18 102/76 96 09/13/17 02:00 97.8 F 203 35 69/54 97 09/13/17 01:15 98 F 135 20 115/66 94 09/12/17 23:39 97.9 F 107 14 131/77 95 09/12/17 23:05 110 20 132/73 95 09/12/17 22:55 203 20 102/81 94 09/12/17 22:45 102 20 113/80 95 09/12/17 22:35 98.2 F 111 16 129/80 96 09/12/17 22:25 112 18 129/80 95 09/12/17 22:15 108 12 131/76 96 09/12/17 22:05 98.3 F 112 16 132/63 92 09/12/17 21:55 112 16 132/69 94 09/12/17 21:45 111 16 128/71 94 09/12/17 21:35 116 18 128/74 93 09/12/17 21:25 120 18 126/79 92 09/12/17 21:15 120 13 125/75 92 09/12/17 21:05 97.5 F L 123 16 121/53 94 09/12/17 20:55 114 14 135/96 90 09/12/17 20:45 107 12 120/72 97 09/12/17 20:35 98.2 F 109 20 107/65 97 09/12/17 16:32 98.3 F 104 16 150/75 95 Intake and Output 09/13/17 09/13/17 09/13/17 07:59 15:59 23:59 Intake Total 2149 / 2149 1100 / 1100 Output Total 150 / 150 0 / 0 Balance 1999 1100 / 1100 Intake: IV Fluids 2149 1100 / 1100 0.9 % Sodium Chloride 1,000 ML 1999 @ 100 mls/hr IVC .Q10H [place] Rx#: [id number] PRECEDEX Premix 400 mcg In 100 100 / 100 ml @ 0.3 MCG/KG/HR 9.338 mls/hr IVC .[id number] [place] Rx#: [id number] Diprivan 1,000 mg In 100 ml @ 100 / 100 0 / 0 20 MCG/KG/MIN 10.777 mls/hr IVC .Q9H17M [place] Rx#:[id number] Lactated Ringers 1,000 ML @ 75 1000 / 1000 mls/hr IVC .[id number] [place] Rx#: [id number] Zosyn 3.375 GM In Dextrose 5% ( 50 / 50 ADD-[place]) 50 ML @ 12.5 mls/ hr IVPB Q8HR [place] Rx#:[id number] Output: Catheter 150 / 150 0 / 0 Other: Weight 124.5 kg Blood Glucose* 213 Patient Weight 09/13/17 23:59 Weight 124.5 kg - Labs CBC & BMP: 09/13/17 07:33 09/13/17 07:33 Labs: Abnormal lab results WBC 18.0 K/mcL (4.3-11.1) H 09/13/17 07:33 RBC 3.15 M/mcL (4.19-5.50) L 09/13/17 07:33 Hgb 8.9 g/dL (12.9-16.9) L D 09/13/17 07:33 Hct 27.5 % (37.5-50.1) L 09/13/17 07:33 Band Neutrophils % 10.0 % (0-4) H 09/11/17 05:20 Neutrophils # 10.6 K/mcL (1.6-8.9) H 09/13/17 07:33 Lymphocytes # 5.5 K/mcL (0.6-4.6) H 09/13/17 07:33 Monocytes # 1.6 K/mcL (0.0-1.3) H 09/13/17 07:33 Reactive Lymphocytes Present (Not Present) A 09/13/17 01:37 ESR 67 mm/hr (0-10) H 09/11/17 05:20 ABG Base Excess -4 mEq/L (-2 to 3) L 09/13/17 02:16 VBG pH 7.19 pH Units (7.32-7.42) L* 09/13/17 01:54 VBG pCO2 56 mmHg (41-51) H 09/13/17 01:54 VBG pO2 86 mmHg (25-50) H 09/13/17 01:54 Sodium 134 mEq/L (136-145) L 09/13/17 07:33 BUN 46 mg/dL (8-26) H 09/13/17 07:33 Creatinine 2.86 mg/dL (0.72-1.25) H 09/13/17 07:33 Est GFR ( Amer) 27 (> 60) L 09/13/17 07:33 Est GFR (Non-Af Amer) 22 (> 60) L 09/13/17 07:33 Glucose 212 mg/dL (70-99) H 09/13/17 07:33 POC Glucose 236 (58-89) H 09/12/17 23:32 Hemoglobin A1c 8.8 % (-5.6) H 09/13/17 01:37 Uric Acid 9.0 mg/dL (3.5-7.2) H 09/13/17 12:13 Calcium 8.0 mg/dL (8.6-10.8) L 09/13/17 07:33 Magnesium 2.8 mg/dL (1.6-2.6) H 09/13/17 01:37 Creatine Kinase 267 Units/L (30-200) H 09/13/17 12:13 Troponin I 0.12 ng/mL (0-0.03) H* 09/13/17 12:13 C-Reactive Protein 424 mg/L (Less than 5) H 09/11/17 05:20 Albumin 2.6 g/dL (3.5-5.0) L 09/13/17 01:37 Globulin 3.8 g/dL (2.4-3.5) H 09/13/17 01:37 Albumin/Globulin Ratio 0.7 (1.1-2.2) L 09/13/17 01:37 Synovial Appearance Cloudy (Clear-Hazy) A 09/10/17 12:48 Synovial RBC 0.196 M/mcl (0.000-0.002) H 09/10/17 12:48 Synovial Tot Nuc Cell > [id number] TNC/mcL (0-200) H 09/10/17 12:48 Streptococcus sp PCR DETECTED (Not Detect) A 09/10/17 12:22 - VTE Documentation of Mechanical Device: Intermittent pneumatic compression device Consult Discharge Plan - Plan Referrals: Casey Monroy DO [Primary Care Provider] -
[2017-09-13] MEDS: Phenylephrine 50 MG in D5% in Water 250 ML IVC SCH ×2 (16:30→21:30)
[2017-09-13 16:41] LABS: Basophils # 0.1 K/mcL (0.0-0.2); Basophils % 0.3 %; Eosinophils # 0.1 K/mcL (0.0-0.6); Eosinophils % 0.4 %; Hematocrit 27.7 % (37.5-50.1); Hemoglobin 8.8 g/dL (12.9-16.9); Immature Granulocytes % 0.8 % (0-4); Lymphocytes # 4.7 K/mcL (0.6-4.6); Lymphocytes % 32.4 %; Mean Corpuscular HGB Conc 31.8 g/dL (31.6-35.5); Mean Corpuscular Hemoglobin 28.1 pg (28.0-33.3); Mean Corpuscular Volume 88.5 fL (83.0-100.0); Mean Platelet Volume 10.2 fL (9.4-12.4); Monocytes # 1.5 K/mcL (0.0-1.3); Monocytes % 10.5 %; Neutrophils # 8.1 K/mcL (1.6-8.9); Platelet Count 175 K/mcL (140-400); Red Blood Count 3.13 M/mcL (4.19-5.50); Red Cell Distribution Width 14.8 % (11.5-14.5); Segmented Neutrophils % 55.6 %
[2017-09-13 16:50] LABS: Albumin 2.1 g/dL (3.5-5.0); Calcium 7.8 mg/dL (8.6-10.8); Phosphorous 4.9 mg/dL (2.3-4.7)
[2017-09-13] MEDS ORDERED: Temazepam 15 MG CAPSULE PO PRN (21:00)
[2017-09-13] MEDS ORDERED: MOM Conc 10 ML UD.LIQ PO PRN (21:00)
[2017-09-13] MEDS ORDERED: Insulin LISPRO 300 UNITS/3 ML VIAL SQ SCH (21:00)
[2017-09-13] MEDS ORDERED: Sennosides 8.6 MG TABLET PO PRN (21:00)
[2017-09-14] MEDS: Dexmedetomidine HCl 400 MCG/100 ML MLS IVC SCH ×5 (02:43→18:50)
[2017-09-14] MEDS: FentaNYL (PF) 1,000 MCG in 0.9 % Sodium Chloride 80 ML IVC SCH ×2 (02:44→18:17)
[2017-09-14 04:43] LABS: Basophils # 0.1 K/mcL (0.0-0.2); Basophils % 0.5 %; Eosinophils # 0.1 K/mcL (0.0-0.6); Eosinophils % 0.5 %; Hematocrit 29.9 % (37.5-50.1); Hemoglobin 9.4 g/dL (12.9-16.9); Immature Granulocytes % 1.2 % (0-4); Lymphocytes # 5.6 K/mcL (0.6-4.6); Lymphocytes % 30.6 %; Mean Corpuscular HGB Conc 31.4 g/dL (31.6-35.5); Mean Corpuscular Hemoglobin 27.9 pg (28.0-33.3); Mean Corpuscular Volume 88.7 fL (83.0-100.0); Mean Platelet Volume 10.4 fL (9.4-12.4); Monocytes # 2.1 K/mcL (0.0-1.3); Monocytes % 11.3 %; Neutrophils # 10.2 K/mcL (1.6-8.9); Nucleated Red Blood Cells 0.1 /100 WBC (0); Platelet Count 185 K/mcL (140-400); Red Blood Count 3.37 M/mcL (4.19-5.50); Segmented Neutrophils % 55.9 %
[2017-09-14 04:48] LABS: Ionized Calcium 1.01 mmol/L (1.15-1.35)
[2017-09-14 04:58] LABS: Calcium 8.1 mg/dL (8.6-10.8); Potassium 4.5 mEq/L (3.5-4.5)
[2017-09-14 04:59] LABS: Magnesium 2.8 mg/dL (1.6-2.6); Phosphorous 6.6 mg/dL (2.3-4.7)
[2017-09-14] MEDS: *HR* Heparin 5,000 UNIT/ML VIAL SQ SCH ×2 (05:27→15:21)
--- NOTE | 2017-09-14 05:40 | Electrocardiograph Report ---
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
--- NOTE | 2017-09-14 05:42 | Electrocardiograph Report ---
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
--- NOTE | 2017-09-14 05:48 | Electrocardiograph Report ---
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
[2017-09-14] MEDS: Phenylephrine 50 MG in D5% in Water 250 ML IVC SCH ×3 (06:38→23:02)
[2017-09-14] MEDS ORDERED: Levofloxacin 750 MG/150 ML 750 MG/150 ML BAG IVPB SCH (07:00)
--- NOTE | 2017-09-14 07:28 | Pulmonology Progress Note ---
<Mellissa Ragsdale - Last Filed: 09/14/17 12:18> Date of Encounter: 09/14/17 Time of Encounter: 07:26 Assessment and Plan (1) Severe sepsis Current Visit: Yes Status: Acute -d/t septic joint, rt knee -last lactic acid WNL (1.1) -blood culture shows Strep. mutans -d/c ceftriaxone based on blood culture sensitivities and started levofloxacin 750mg @ 100mL/h IVPB Q12H (2) TITUS (acute kidney injury) Current Visit: Yes Status: Acute -etiology likely from multiple factors including: septic joint, sepsis, hypotension, and medication (vancomycin, ACEi) -metabolic acidosis with respiratory acidosis -renal function continues to worsen; BUN/Cr of 67/5.04 today (yesterday 46/2.86) -retroperitoneal ultrasound unremarkable -ATN suspected based on etiology of TITUS and reported muddy brown urine sediment -avoid nephrotoxins when possible and renal dose meds -strictly monitor urine output with oropeza -anticipating need for dialysis -nephrology consulted, recommendations appreciated (3) Septic joint Current Visit: Yes Status: Acute -rt total knee arthroplasty approx 10 years ago -(09/12) irrigation and debridement of rt knee -positive blood culture for Step. mutans; 2nd set of blood cultures show no growth preliminarily, awaiting final result -final gram stain of rt knee shows no bacteria observed -final culture of synovial fluid shows no pathogens isolated -ortho following, recommendations appreciated Qualifiers: Septic arthritis location: knee Septic arthritis organism: due to unspecified organism Laterality: right Qualified Code(s): M00.9 - Pyogenic arthritis, unspecified (4) SVT (supraventricular tachycardia) Current Visit: Yes Status: Acute -KEYA shows LVEF 60%, no evidence of vegetation, moderate pulmonary HTN, mild mitral regurgitation -d/c'd amiodarone gtt -no beta rae at this time, unlikely to tolerate given his HR 106/73 and pulse 73 -cardiology onboard (5) Elevated troponin Current Visit: Yes Status: Acute -troponins began trending down yesterday, last troponin 0.12 -likely 2/2 demand ischemia in setting of severe sepsis, TITUS, SVT, bacteremia -no further testing at this time, per cardiology -cardiology onboard (6) Diabetes mellitus Current Visit: Yes Status: Chronic -insulin sliding scale, now Q6H Qualifiers: Diabetes mellitus type: type 2 Diabetes mellitus complication status: without complication Diabetes mellitus intelligence intern insulin use: without mcc use Qualified Code(s): E11.9 - Type 2 diabetes mellitus without complications (7) DVT prophylaxis Current Visit: Yes Status: Acute -Heparin 5000 units SubQ, Q12H -SCD on left calf Subjective Principal diagnosis: Right Knee - Poly Exchange, washout and closure 09/13/17 Interval history: Patient remains intubated and sedated on mechanical ventilation, therefore ROS couldn't be obtained. No overnight events reported. Objective PUL Vital signs: Last Vital Signs Temp 97.9 F 09/14/17 06:00 Pulse 74 09/14/17 06:00 Resp 16 09/14/17 07:07 BP 129/78 09/14/17 07:07 Pulse Ox 94 09/14/17 07:07 General appearance: comatose Eyes: nonicteric Effort: normal Auscultation: bilateral: clear Cardiovascular: regular rate and rhythm Gastrointestinal: normoactive bowel sounds, soft, non-distended Extremities: no cyanosis, no edema, cool pupils equal and round, unable to assess due to mental status Ventilator Settings Ventilator Settings: Ventilator Settings, Last 8 Hours Ventilator Mode CPAP Ventilator Mode CPAP Ventilator Mode CPAP Ventilator Mode VC+ Ventilator Mode VC+ Ventilator Mode VC+ Ventilator Mode VC+ Ventilator Mode VC+ Ventilator Mode VC+ Ventilator Tidal Volume 500 Setting Ventilator Tidal Volume 500 Setting Ventilator Tidal Volume 500 Setting Ventilator Tidal Volume 500 Setting Ventilator Tidal Volume 500 Setting Ventilator Tidal Volume 500 Setting Ventilator Respiratory Rate 12 Setting Ventilator Respiratory Rate 12 Setting Ventilator Respiratory Rate 12 Setting Ventilator Respiratory Rate 12 Setting Ventilator Respiratory Rate 12 Setting Ventilator Respiratory Rate 12 Setting Ventilator Respiratory Rate 12 Setting Actual Respiratory Rate 17 Actual Respiratory Rate 17 Actual Respiratory Rate 17 Actual Respiratory Rate 17 Actual Respiratory Rate 23 Actual Respiratory Rate 14 Actual Respiratory Rate 17 Actual Respiratory Rate 17 Actual Respiratory Rate 16 Positive End Expiratory 5 Pressure Positive End Expiratory 5 Pressure Positive End Expiratory 5 Pressure Positive End Expiratory 5 Pressure Positive End Expiratory 5 Pressure Positive End Expiratory 5 Pressure Positive End Expiratory 5 Pressure Positive End Expiratory 5 Pressure Positive End Expiratory 5 Pressure Peak Inspiratory Airway 12 Pressure Peak Inspiratory Airway 15 Pressure Peak Inspiratory Airway 15 Pressure Peak Inspiratory Airway 13 Pressure Peak Inspiratory Airway 14 Pressure Peak Inspiratory Airway 11 Pressure Peak Inspiratory Airway 12 Pressure Peak Inspiratory Airway 12 Pressure Peak Inspiratory Airway 14 Pressure Results - Laboratory Findings CBC and BMP: 09/14/17 04:25 09/14/17 04:25 ABG ABG pH 7.37 pH Units (7.32-7.45) 09/13/17 02:16 ABG pCO2 36 mmHg (35-45) 09/13/17 02:16 ABG pO2 104 mmHg (85-104) 09/13/17 02:16 ABG O2 Saturation 98 % (95-98) 09/13/17 02:16 Abnormal lab findings: Abnormal lab results WBC 18.2 K/mcL (4.3-11.1) H 09/14/17 04:25 RBC 3.37 M/mcL (4.19-5.50) L 09/14/17 04:25 Hgb 9.4 g/dL (12.9-16.9) L 09/14/17 04:25 Hct 29.9 % (37.5-50.1) L 09/14/17 04:25 MCH 27.9 pg (28.0-33.3) L 09/14/17 04:25 MCHC 31.4 g/dL (31.6-35.5) L 09/14/17 04:25 RDW 15.0 % (11.5-14.5) H 09/14/17 04:25 Band Neutrophils % 10.0 % (0-4) H 09/11/17 05:20 Neutrophils # 10.2 K/mcL (1.6-8.9) H 09/14/17 04:25 Lymphocytes # 5.6 K/mcL (0.6-4.6) H 09/14/17 04:25 Monocytes # 2.1 K/mcL (0.0-1.3) H 09/14/17 04:25 Nucleated RBCs/100 WBC 0.1 /100 WBC (0) H 09/14/17 04:25 Reactive Lymphocytes Present (Not Present) A 09/13/17 01:37 ESR 67 mm/hr (0-10) H 09/11/17 05:20 ABG Base Excess -4 mEq/L (-2 to 3) L 09/13/17 02:16 VBG pH 7.19 pH Units (7.32-7.42) L* 09/13/17 01:54 VBG pCO2 56 mmHg (41-51) H 09/13/17 01:54 VBG pO2 86 mmHg (25-50) H 09/13/17 01:54 Sodium 135 mEq/L (136-145) L 09/14/17 04:25 Carbon Dioxide 16 mEq/L (19-29) L 09/14/17 04:25 BUN 67 mg/dL (8-26) H D 09/14/17 04:25 Creatinine 5.04 mg/dL (0.72-1.25) H 09/14/17 04:25 Est GFR ( Amer) 14 (> 60) L 09/14/17 04:25 Est GFR (Non-Af Amer) 12 (> 60) L 09/14/17 04:25 Glucose 152 mg/dL (70-99) H 09/14/17 04:25 POC Glucose 147 (58-89) H 09/14/17 00:04 Hemoglobin A1c 8.8 % (-5.6) H 09/13/17 01:37 Calculated Osmolality 302 (280-300) H 09/14/17 04:25 Uric Acid 9.0 mg/dL (3.5-7.2) H 09/13/17 12:13 Calcium 8.1 mg/dL (8.6-10.8) L 09/14/17 04:25 Ionized Calcium 1.01 mmol/L (1.15-1.35) L 09/14/17 04:25 Phosphorus 6.6 mg/dL (2.3-4.7) H 09/14/17 04:25 Magnesium 2.8 mg/dL (1.6-2.6) H 09/14/17 04:25 Creatine Kinase 267 Units/L (30-200) H 09/13/17 12:13 Troponin I 0.12 ng/mL (0-0.03) H* 09/13/17 12:13 C-Reactive Protein 424 mg/L (Less than 5) H 09/11/17 05:20 Albumin 2.1 g/dL (3.5-5.0) L 09/13/17 16:25 Globulin 3.8 g/dL (2.4-3.5) H 09/13/17 01:37 Albumin/Globulin Ratio 0.7 (1.1-2.2) L 09/13/17 01:37 Synovial Appearance Cloudy (Clear-Hazy) A 09/10/17 12:48 Synovial RBC 0.196 M/mcl (0.000-0.002) H 09/10/17 12:48 Synovial Tot Nuc Cell > [id number] TNC/mcL (0-200) H 09/10/17 12:48 Streptococcus sp PCR DETECTED (Not Detect) A 09/10/17 12:22 - Microbiology Findings Microbiology Findings: Microbiology, Last 48 Hours 09/13/17 01:37 Blood Culture - Preliminary Peripheral Venipuncture No growth. 09/13/17 01:30 Blood Culture - Preliminary Peripheral Venipuncture No growth. 09/12/17 20:05 Gram Stain - Final Right Knee - Clinical Findings Intake & Output: Intake & Output 09/13/17 09/13/17 09/14/17 15:59 23:59 07:59 Intake Total 1200 / 1200 455 / 455 355 / 355 Output Total 2 / 2 0 / 0 0 / 0 Balance 1198 / 1198 455 / 455 355 / 355 Weight 133.3 kg - VTE Documentation of Mechanical Device: Intermittent pneumatic compression device Consult Discharge Plan - Plan Referrals: Casey Monroy DO [Primary Care Provider] - <Gagan Steen - Last Filed: 09/14/17 15:40> Date of Encounter: 09/14/17 Objective PUL Vital signs: Last Vital Signs Temp 99.1 F 09/14/17 07:32 Pulse 73 09/14/17 09:00 Resp 16 09/14/17 09:00 BP 102/66 09/14/17 09:00 Pulse Ox 97 09/14/17 09:00 Ventilator Settings Ventilator Settings: Ventilator Settings, Last 8 Hours Ventilator Mode A/C Ventilator Mode CPAP Ventilator Mode CPAP Ventilator Mode CPAP Ventilator Mode CPAP Ventilator Mode VC+ Ventilator Mode VC+ Ventilator Mode VC+ Ventilator Tidal Volume 500 Setting Ventilator Tidal Volume 500 Setting Ventilator Tidal Volume 500 Setting Ventilator Respiratory Rate 12 Setting Ventilator Respiratory Rate 12 Setting Ventilator Respiratory Rate 12 Setting Ventilator Respiratory Rate 12 Setting Actual Respiratory Rate 17 Actual Respiratory Rate 17 Actual Respiratory Rate 17 Actual Respiratory Rate 17 Actual Respiratory Rate 23 Actual Respiratory Rate 14 Positive End Expiratory 5 Pressure Positive End Expiratory 5 Pressure Positive End Expiratory 5 Pressure Positive End Expiratory 5 Pressure Positive End Expiratory 5 Pressure Positive End Expiratory 5 Pressure Peak Inspiratory Airway 12 Pressure Peak Inspiratory Airway 15 Pressure Peak Inspiratory Airway 15 Pressure Peak Inspiratory Airway 13 Pressure Peak Inspiratory Airway 14 Pressure Peak Inspiratory Airway 11 Pressure Results - Laboratory Findings CBC and BMP: 09/14/17 04:25 09/14/17 04:25 ABG ABG pH 7.24 pH Units (7.32-7.45) L 09/14/17 07:49 ABG pCO2 38 mmHg (35-45) 09/14/17 07:49 ABG pO2 72 mmHg (85-104) L 09/14/17 07:49 ABG O2 Saturation 92 % (95-98) L 09/14/17 07:49 Abnormal lab findings: Abnormal lab results WBC 18.2 K/mcL (4.3-11.1) H 09/14/17 04:25 RBC 3.37 M/mcL (4.19-5.50) L 09/14/17 04:25 Hgb 9.4 g/dL (12.9-16.9) L 09/14/17 04:25 Hct 29.9 % (37.5-50.1) L 09/14/17 04:25 MCH 27.9 pg (28.0-33.3) L 09/14/17 04:25 MCHC 31.4 g/dL (31.6-35.5) L 09/14/17 04:25 RDW 15.0 % (11.5-14.5) H 09/14/17 04:25 Band Neutrophils % 10.0 % (0-4) H 09/11/17 05:20 Neutrophils # 10.2 K/mcL (1.6-8.9) H 09/14/17 04:25 Lymphocytes # 5.6 K/mcL (0.6-4.6) H 09/14/17 04:25 Monocytes # 2.1 K/mcL (0.0-1.3) H 09/14/17 04:25 Nucleated RBCs/100 WBC 0.1 /100 WBC (0) H 09/14/17 04:25 Reactive Lymphocytes Present (Not Present) A 09/13/17 01:37 ESR 67 mm/hr (0-10) H 09/11/17 05:20 ABG pH 7.24 pH Units (7.32-7.45) L 09/14/17 07:49 ABG pO2 72 mmHg (85-104) L 09/14/17 07:49 ABG HCO3 17 mEq/L (21-27) L 09/14/17 07:49 ABG Total CO2 18 mEq/L (20-26) L 09/14/17 07:49 ABG O2 Saturation 92 % (95-98) L 09/14/17 07:49 ABG Base Excess -10 mEq/L (-2 to 3) L 09/14/17 07:49 VBG pH 7.19 pH Units (7.32-7.42) L* 09/13/17 01:54 VBG pCO2 56 mmHg (41-51) H 09/13/17 01:54 VBG pO2 86 mmHg (25-50) H 09/13/17 01:54 Sodium 135 mEq/L (136-145) L 09/14/17 04:25 Carbon Dioxide 16 mEq/L (19-29) L 09/14/17 04:25 BUN 67 mg/dL (8-26) H D 09/14/17 04:25 Creatinine 5.04 mg/dL (0.72-1.25) H 09/14/17 04:25 Est GFR ( Amer) 14 (> 60) L 09/14/17 04:25 Est GFR (Non-Af Amer) 12 (> 60) L 09/14/17 04:25 Glucose 152 mg/dL (70-99) H 09/14/17 04:25 POC Glucose 147 (58-89) H 09/14/17 00:04 Hemoglobin A1c 8.8 % (-5.6) H 09/13/17 01:37 Calculated Osmolality 302 (280-300) H 09/14/17 04:25 Uric Acid 9.0 mg/dL (3.5-7.2) H 09/13/17 12:13 Calcium 8.1 mg/dL (8.6-10.8) L 09/14/17 04:25 Ionized Calcium 1.01 mmol/L (1.15-1.35) L 09/14/17 04:25 Phosphorus 6.6 mg/dL (2.3-4.7) H 09/14/17 04:25 Magnesium 2.8 mg/dL (1.6-2.6) H 09/14/17 04:25 Creatine Kinase 267 Units/L (30-200) H 09/13/17 12:13 Troponin I 0.12 ng/mL (0-0.03) H* 09/13/17 12:13 C-Reactive Protein 424 mg/L (Less than 5) H 09/11/17 05:20 Albumin 2.1 g/dL (3.5-5.0) L 09/13/17 16:25 Globulin 3.8 g/dL (2.4-3.5) H 09/13/17 01:37 Albumin/Globulin Ratio 0.7 (1.1-2.2) L 09/13/17 01:37 Synovial Appearance Cloudy (Clear-Hazy) A 09/10/17 12:48 Synovial RBC 0.196 M/mcl (0.000-0.002) H 09/10/17 12:48 Synovial Tot Nuc Cell > [id number] TNC/mcL (0-200) H 09/10/17 12:48 Streptococcus sp PCR DETECTED (Not Detect) A 09/10/17 12:22 - Microbiology Findings Microbiology Findings: Microbiology, Last 48 Hours 09/13/17 01:37 Blood Culture - Preliminary Peripheral Venipuncture No growth. 09/13/17 01:30 Blood Culture - Preliminary Peripheral Venipuncture No growth. 09/12/17 20:05 Gram Stain - Final Right Knee - Clinical Findings Intake & Output: Intake & Output 09/13/17 09/14/17 09/14/17 23:59 07:59 15:59 Intake Total 455 / 455 355 / 355 1355 / 1355 Output Total 0 / 0 0 / 0 Balance 455 / 455 355 / 355 1355 / 1355 Weight 133.3 kg - Attending Attestation I examined this patient and my medical decision-making was reviewed with the Resident Physician. I agree with the documented findings, disposition and treatment plan as described except to the extent set forth below. We independently had [id number] contact with the patient Patient seen and examined at bedside Labs, radiology, chart personally reviewed. Management was reviewed during multidisciplinary critical care rounds. MANAGEMENT ASSOCIATE: Sedated no deficit plan for SAT today leading to SBT. Pulm: intubated on vent. Acceptable oxygenation. Mixed acidosis priimarily metabolic with with reduction in sedation patients MV has increased. Plan for SBT later in day Cards: Vasodiliatory shock with normalization of lacatate. Weaning Vasopressor for goal MAP >65. No further episodes of SVT. 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 Heme/Onc: The prophylaxis given Endo: Glucose Monitored Integ/MSK: Skin Care per routine ICU Nursing Protocol to prevent ulcers. Lines: All lines examined without evidence of infection : Dispo: The ICU for ventilator needs CODE: Full updated at bedside
--- NOTE | 2017-09-14 08:07 | Orthopedics Progress Note ---
Date of Encounter: 09/14/17 Time of Encounter: 08:06 Subjective Principal diagnosis: Right Knee - Poly Exchange, washout and closure 09/13/17 Interval history: Patient seen this morning in the ICU. Patient still intubated. He is reporting issues with kidney function. Right lower extremity dressing clean dry and intact.. Continuous plan as per ICU team Objective Vital signs: Vital Signs Temp Pulse Resp BP Pulse Ox 09/14/17 07:32 99.1 F 09/14/17 07:07 16 129/78 94 09/14/17 06:05 16 95/54 95 09/14/17 06:00 97.9 F 74 16 127/79 95 09/14/17 05:00 97.9 F 69 15 100/57 97 09/14/17 04:24 97.9 F 09/14/17 04:00 66 09/14/17 03:33 24 132/112 95 09/14/17 03:00 97.9 F 09/14/17 02:00 67 15 120/76 98 09/14/17 01:11 19 95 09/14/17 01:00 68 19 121/77 95 09/14/17 00:23 99.1 F 09/14/17 00:00 98.5 F 68 17 119/77 96 09/13/17 23:06 18 124/77 94 09/13/17 23:00 68 18 124/77 94 09/13/17 22:00 69 15 124/77 94 09/13/17 21:09 14 96 09/13/17 21:00 70 14 106/67 96 09/13/17 20:03 98.5 F 09/13/17 20:00 70 16 105/63 95 09/13/17 19:43 16 96 09/13/17 19:15 74 19 108/67 94 09/13/17 18:30 75 20 95/73 95 09/13/17 17:41 74 19 108/67 94 09/13/17 17:40 74 19 108/67 94 09/13/17 17:32 74 19 108/67 94 09/13/17 17:20 22 97/61 93 09/13/17 16:45 75 17 88/61 95 09/13/17 15:36 17 90/62 69 09/13/17 15:33 17 79/57 97 09/13/17 15:00 74 19 108/67 94 09/13/17 14:00 82 15 69/57 96 09/13/17 13:11 25 78/55 96 09/13/17 13:05 25 78/55 96 09/13/17 13:00 71 14 78/55 97 09/13/17 12:58 80 22 77/51 97 09/13/17 11:31 98.0 F 09/13/17 11:23 73 18 124/54 97 09/13/17 11:18 73 18 124/54 97 09/13/17 11:11 16 85/55 96 09/13/17 10:35 75 18 80/46 98 09/13/17 09:30 82 14 89/49 99 09/13/17 09:06 18 89/43 99 09/13/17 08:22 85 14 101/59 98 Intake and Output 09/13/17 09/14/17 09/14/17 23:59 07:59 15:59 Intake Total 455 / 455 355 / 355 Output Total 0 / 0 0 / 0 Balance 455 / 455 355 / 355 Intake: IV Fluids 455 / 455 355 / 355 PRECEDEX Premix 400 mcg In 100 200 / 200 ml @ 0.3 MCG/KG/HR 9.338 mls/hr IVC .[id number] [place] Rx#: [id number] Phenylephrine 50 MG In Dextrose 255 / 255 255 / 255 5% 250 ML @ 25 MCG/MIN 7.65 mls/hr IVC CONT [place] Rx#: [id number] Diprivan 1,000 mg In 100 ml @ 5 100 / 100 MCG/KG/MIN 3.735 mls/hr IVC . Q24H [place] Rx#:[id number] Output: Urine 0 / 0 Catheter 0 / 0 0 / 0 Other: Weight 133.3 kg Blood Glucose* 144 147 Patient Weight 09/14/17 23:59 Weight 133.3 kg - Labs CBC & BMP: 09/14/17 04:25 09/14/17 04:25 Labs: Abnormal lab results WBC 18.2 K/mcL (4.3-11.1) H 09/14/17 04:25 RBC 3.37 M/mcL (4.19-5.50) L 09/14/17 04:25 Hgb 9.4 g/dL (12.9-16.9) L 09/14/17 04:25 Hct 29.9 % (37.5-50.1) L 09/14/17 04:25 MCH 27.9 pg (28.0-33.3) L 09/14/17 04:25 MCHC 31.4 g/dL (31.6-35.5) L 09/14/17 04:25 RDW 15.0 % (11.5-14.5) H 09/14/17 04:25 Band Neutrophils % 10.0 % (0-4) H 09/11/17 05:20 Neutrophils # 10.2 K/mcL (1.6-8.9) H 09/14/17 04:25 Lymphocytes # 5.6 K/mcL (0.6-4.6) H 09/14/17 04:25 Monocytes # 2.1 K/mcL (0.0-1.3) H 09/14/17 04:25 Nucleated RBCs/100 WBC 0.1 /100 WBC (0) H 09/14/17 04:25 Reactive Lymphocytes Present (Not Present) A 09/13/17 01:37 ESR 67 mm/hr (0-10) H 09/11/17 05:20 ABG Base Excess -4 mEq/L (-2 to 3) L 09/13/17 02:16 VBG pH 7.19 pH Units (7.32-7.42) L* 09/13/17 01:54 VBG pCO2 56 mmHg (41-51) H 09/13/17 01:54 VBG pO2 86 mmHg (25-50) H 09/13/17 01:54 Sodium 135 mEq/L (136-145) L 09/14/17 04:25 Carbon Dioxide 16 mEq/L (19-29) L 09/14/17 04:25 BUN 67 mg/dL (8-26) H D 09/14/17 04:25 Creatinine 5.04 mg/dL (0.72-1.25) H 09/14/17 04:25 Est GFR ( Amer) 14 (> 60) L 09/14/17 04:25 Est GFR (Non-Af Amer) 12 (> 60) L 09/14/17 04:25 Glucose 152 mg/dL (70-99) H 09/14/17 04:25 POC Glucose 147 (58-89) H 09/14/17 00:04 Hemoglobin A1c 8.8 % (-5.6) H 09/13/17 01:37 Calculated Osmolality 302 (280-300) H 09/14/17 04:25 Uric Acid 9.0 mg/dL (3.5-7.2) H 09/13/17 12:13 Calcium 8.1 mg/dL (8.6-10.8) L 09/14/17 04:25 Ionized Calcium 1.01 mmol/L (1.15-1.35) L 09/14/17 04:25 Phosphorus 6.6 mg/dL (2.3-4.7) H 09/14/17 04:25 Magnesium 2.8 mg/dL (1.6-2.6) H 09/14/17 04:25 Creatine Kinase 267 Units/L (30-200) H 09/13/17 12:13 Troponin I 0.12 ng/mL (0-0.03) H* 09/13/17 12:13 C-Reactive Protein 424 mg/L (Less than 5) H 09/11/17 05:20 Albumin 2.1 g/dL (3.5-5.0) L 09/13/17 16:25 Globulin 3.8 g/dL (2.4-3.5) H 09/13/17 01:37 Albumin/Globulin Ratio 0.7 (1.1-2.2) L 09/13/17 01:37 Synovial Appearance Cloudy (Clear-Hazy) A 09/10/17 12:48 Synovial RBC 0.196 M/mcl (0.000-0.002) H 09/10/17 12:48 Synovial Tot Nuc Cell > 070550 TNC/mcL (0-200) H 09/10/17 12:48 Streptococcus sp PCR DETECTED (Not Detect) A 09/10/17 12:22 - VTE Documentation of Mechanical Device: Intermittent pneumatic compression device Consult Discharge Plan - Plan Referrals: Casey Monroy DO [Primary Care Provider] -
[2017-09-14 08:08] LABS: ABG Base Excess -10 mEq/L (-2 to 3); ABG HCO3 17 mEq/L (21-27); ABG Oxygen Saturation 92 % (95-98); ABG PCO2 38 mmHg (35-45); ABG PH 7.24 pH Units (7.32-7.45); ABG PO2 72 mmHg (85-104); ABG TCO2 18 mEq/L (20-26)
[2017-09-14] MEDS ORDERED: Lacri-Lube 3.5 GM TUBE BOTH EYES PRN (08:32)
[2017-09-14] MEDS: Docusate Oral Soln 100 MG/10 ML UDC PO SCH ×2 (08:57→20:14)
[2017-09-14] MEDS: Aspirin Enteric Coated 81 MG Tablet PO SCH (08:57)
[2017-09-14] MEDS: Insulin LISPRO 300 UNITS/3 ML VIAL SQ SCH ×3 (09:11→18:14)
[2017-09-14] MEDS ORDERED: *HR* Heparin 5,000 UNIT/ML VIAL IV PRN (10:11)
[2017-09-14] MEDS ORDERED: Calcium Gluconate 2,000 MG in 0.9 % Sodium Chloride 50 ML IVPB PRN (10:11)
[2017-09-14] MEDS ORDERED: 0.9 % Sodium Chloride 1,000 ML PRIME SCH (10:15)
[2017-09-14] MEDS ORDERED: *HR* Heparin 5,000 UNIT/ML VIAL ONE (10:45)
--- NOTE | 2017-09-14 11:12 | Nephrology Consult Note ---
Date of Encounter: 09/14/17 Time of Encounter: 09:10 Assessment and Plan (1) TITUS (acute kidney injury) Current Visit: Yes Status: Acute Recommend CRRT as the pt remains on pressors. Rapidly worsening renal dysfunction. Suspect multifactorial etiology including sepsis Discussed R/B/I and potential SE with his . I spent approximately 50 min from chart review, exam, family meeting, discussions with IR and ICU teams plus documentation; all as part of CCT. Thank you for consulting the [facility]. Will follow with you. (2) ATN (acute tubular necrosis) Current Visit: Yes Status: Acute I highly suspect ATN in the setting of sepsis, but his UOP has diminished such that currently a UA with microscopy is not feasible. There is a trace 1-2mL of UOP in the oropeza tubing that appears muddy-brown in color. (3) Metabolic acidosis Current Visit: Yes Status: Acute Progressively worsening, likely from the TITUS. Should improved with CRRT. (4) Hyperkalemia Current Visit: Yes Status: Acute mild. Rec CRRT (5) Hyponatremia Current Visit: Yes Status: Acute Mild. Rec CRRT. (6) Severe sepsis Current Visit: Yes Status: Acute As per primary. History of Present Illness - Reason for Consult Consult date: 09/14/17 Acute Kidney Injury Requesting physician: Gagan Steen - Chief Complaint TITUS - History of Present Illness Benjamin Pickard is a 67 y/o WM with a pmh of obesity, HTN, DM, prior RLE BKA and et al who presented with a knee infection. He was intubated and sedated, thus limiting this HPI and ROS. I reviewed the notes, labs, med lists, I/Os, imaging studies; and, his renal function at baseline was WNL. In fact, his informed me that he has never needed to see another collections assistant in the past. His UOP and SCr have both been worsening in each of the last 2-3 days. His renal function has not improved with IVF of note. Again, further hx is limited d /t his intubation/sedation. Past Med Surg Social Fam HX - Past Medical History Medical history: DVT, diabetes, GERD, hypertension Psychiatric history: anxiety, depression - Past Surgical History Surgical History: knee replacement, orthopedic, other, other - Social History Smoking Status: Former smoker Smokeless Tobacco Status: No Alcohol use: occasionally Drug use: none Medications and Allergies Aspirin [Adult Low Dose Aspirin EC] 81 mg PO DAILY 12/25/15 [History] Celecoxib [Celebrex] 100 mg PO BID 12/25/15 [History] Cholecalciferol (Vitamin D3) [Vitamin D3] 1,000 unit PO BID 12/25/15 [History] Cyanocobalamin (Vitamin B-12) [Vitamin B12] 1,000 mcg PO BID 12/25/15 [History] Cyclobenzaprine [Flexeril] 10 mg PO TID PRN 12/25/15 [History] Furosemide [Lasix] 40 mg PO DAILY 12/25/15 [History] Lisinopril [Zestril] 20 mg PO BID 12/25/15 [History] Pantoprazole Sodium [Protonix] 40 mg PO DAILY 12/25/15 [History] Sertraline [Zoloft] 100 mg PO DAILY 12/25/15 [History] Tamsulosin [Flomax] 0.4 mg PO DAILY 12/25/15 [History] Zolpidem [Ambien] 10 mg PO HS 12/25/15 [History] metFORMIN [Glucophage] 1,000 mg PO BIDWM 12/25/15 [History] Cinnamon Bark [Cinnamon] 500 mg PO BID 09/09/17 [History] 3 Allergy/AdvReac Type Severity Reaction Status Date / Time morphine AdvReac Agitated Verified 09/13/17 11:16 Review of Systems ROS unobtainable: due to endotracheal tube Exam - Vital Signs Vital signs: Initial Vital Signs Temp Pulse Resp BP Pulse Ox 98.2 F 103 16 126/65 97 09/10/17 09:50 09/10/17 09:50 09/10/17 09:50 09/10/17 09:50 09/10/17 09:50 Vital Signs - Last 8 Hours Temp Pulse Resp BP Pulse Ox 09/14/17 10:00 71 16 106/66 97 09/14/17 09:00 73 16 102/66 97 09/14/17 08:00 73 16 106/74 97 09/14/17 07:57 71 09/14/17 07:32 99.1 F 09/14/17 07:07 16 129/78 94 09/14/17 06:05 16 95/54 95 09/14/17 06:00 97.9 F 74 16 127/79 95 09/14/17 05:00 97.9 F 69 15 100/57 97 09/14/17 04:24 97.9 F 09/14/17 04:00 66 09/14/17 03:33 24 132/112 95 Intake and Output 09/13/17 09/14/17 09/14/17 23:59 07:59 15:59 Intake Total 455 / 455 355 / 355 1355 / 1355 Output Total 0 / 0 0 / 0 Balance 455 / 455 355 / 355 1355 / 1355 Intake: IV Fluids 455 / 455 355 / 355 1355 / 1355 PRECEDEX Premix 400 mcg In 100 200 / 200 100 / 100 ml @ 0.3 MCG/KG/HR 9.338 mls/hr IVC .[id number] [facility] Rx#: [id number] Phenylephrine 50 MG In Dextrose 255 / 255 255 / 255 255 / 255 5% 250 ML @ 25 MCG/MIN 7.65 mls/hr IVC CONT [place] Rx#: [id number] Diprivan 1,000 mg In 100 ml @ 5 100 / 100 MCG/KG/MIN 3.735 mls/hr IVC . Q24H [facility] Rx#:[id number] Lactated Ringers 1,000 ML @ 75 1000 / 1000 mls/hr IVC .[id number] [facility] Rx#: [id number] Output: Urine 0 / 0 Catheter 0 / 0 0 / 0 Other: Weight 133.3 kg Blood Glucose* 144 147 Patient Weight 09/14/17 23:59 Weight 133.3 kg - General Appearance General appearance: well-developed, well-nourished, appears started age, obese, sedated on ventilator, intubated EENT: ATNC Neck: supple Respiratory: clear Cardiology: edema (LLE pedal edema and hand edema. ), regular rate, regular rhythm, normal S1, normal S2 Gastrointestinal: normoactive bowel sounds, no guarding, obese Integumentary: warm and dry Musculoskeletal: no cyanosis, no clubbing Additional Comments: Rt BKA Additional Comments: intubated and sedated thus limiting this aspect of exam Results - Lab Results 09/14/17 04:25 09/14/17 20:14 Most recent lab results ABG pH 7.24 pH Units (7.32-7.45) L 09/14/17 07:49 ABG pCO2 38 mmHg (35-45) 09/14/17 07:49 ABG pO2 72 mmHg (85-104) L 09/14/17 07:49 ABG HCO3 17 mEq/L (21-27) L 09/14/17 07:49 ABG O2 Saturation 92 % (95-98) L 09/14/17 07:49 Calcium 8.1 mg/dL (8.6-10.8) L 09/14/17 04:25 Phosphorus 6.6 mg/dL (2.3-4.7) H 09/14/17 04:25 Magnesium 2.8 mg/dL (1.6-2.6) H 09/14/17 04:25 Urine Creatinine 143 mg/dL 09/13/17 12:35 Urine Sodium 52.0 mEq/L 09/13/17 12:35 Consult Discharge Plan - Plan Referrals: Casey Monroy DO [Primary Care Provider] -
--- NOTE | 2017-09-14 11:18 | IR Procedure Note ---
Date of procedure: 09/14/17 Consent Obtained: Verbal consent, Written consent Timeout: Correct patient and procedure verified, Correct site verified, Time out performed, Skin prep completed Local anesthetic: Lidocaine 1% Indications: ARF Procedure Performed: temp HDC insertion Site/Technique: RIJ Estimated blood loss (cc): 1 Complications: None; Tolerated procedure well Post Procedure Treatment Plan: CXR
[2017-09-14] MEDS ORDERED: Potassium Phosphate 44 MEQ in 0.9 % Sodium Chloride 250 ML IVPB PRN (11:24)
[2017-09-14] MEDS ORDERED: Potassium Chloride 40 MEQ/200 ML BAG IVPB PRN (11:24)
--- NOTE | 2017-09-14 12:25 | Event Note ---
Date of Encounter: 09/14/17 Time of Encounter: 12:50 PCR- POD#2 PCR - Patient seen at bedside. Intubated - responsive to stimuli. ICU status Brace undone - bulky dressing taken down. Incision intact with no drainage noted. Brace reapplied and adjusted. Edema noted to right knee however no erythema noted. Will continue to evaluate progress regarding knee.
[2017-09-14] MEDS: PrismaSATE BGK 4/2.5 5,000 ML CRRT SCH ×8 (12:36→23:02)
[2017-09-14] MEDS: Calcium Chloride 4,000 MG in 0.9 % Sodium Chloride 1,000 ML CRRT SCH (12:39)
--- NOTE | 2017-09-14 13:15 | Electrocardiograph Report ---
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
[2017-09-14] MEDS: Lacri-Lube 3.5 GM TUBE BOTH EYES SCH ×3 (15:11→23:50)
[2017-09-14] MEDS: Chlorhexidine Rinse 15 ML MOUTHWASH MM SCH ×3 (15:33→20:19)
[2017-09-14 20:41] LABS: Calcium 8.9 mg/dL (8.6-10.8); Magnesium 2.5 mg/dL (1.6-2.6); Phosphorous 4.3 mg/dL (2.3-4.7); Potassium 4.5 mEq/L (3.5-4.5)
[2017-09-15] MEDS ORDERED: 0.9 % Sodium Chloride 250 ML ONE (00:14)
[2017-09-15] MEDS: Insulin LISPRO 300 UNITS/3 ML VIAL SQ SCH ×4 (00:38→20:54)
[2017-09-15] MEDS: Lacri-Lube 3.5 GM TUBE BOTH EYES SCH ×4 (00:39→14:16)
[2017-09-15] MEDS: PrismaSATE BGK 4/2.5 5,000 ML CRRT SCH ×4 (02:00→05:52)
[2017-09-15] MEDS: Calcium Chloride 4,000 MG in 0.9 % Sodium Chloride 1,000 ML CRRT SCH (04:00)
[2017-09-15 04:06] LABS: ABG Base Excess -5 mEq/L (-2 to 3); ABG HCO3 21 mEq/L (21-27); ABG Oxygen Saturation 93 % (95-98); ABG PCO2 42 mmHg (35-45); ABG PH 7.32 pH Units (7.32-7.45); ABG PO2 74 mmHg (85-104); ABG TCO2 23 mEq/L (20-26)
[2017-09-15 05:02] LABS: Hematocrit 30.6 % (37.5-50.1); Hemoglobin 9.7 g/dL (12.9-16.9)
[2017-09-15 05:04] LABS: Ionized Calcium 1.22 mmol/L (1.15-1.35)
[2017-09-15 05:21] LABS: Albumin/Globulin Ratio 0.5 (1.1-2.2); Bilirubin,Total 0.7 mg/dL (0.2-1.2); Calcium 9.6 mg/dL (8.6-10.8); Globulin 3.8 g/dL (2.4-3.5); Magnesium 2.3 mg/dL (1.6-2.6); Phosphorous 6.1 mg/dL (2.3-4.7); Potassium 4.2 mEq/L (3.5-4.5); Total Protein 5.8 g/dL (6.0-8.3)
[2017-09-15] MEDS: *HR* Heparin 5,000 UNIT/ML VIAL SQ SCH ×2 (06:30→18:29)
--- NOTE | 2017-09-15 08:11 | Orthopedics Progress Note ---
Date of Encounter: 09/15/17 Time of Encounter: 08:10 Subjective Principal diagnosis: Right Knee - Poly Exchange, washout and closure 09/13/17 Interval history: Patient is extubated awake and alert Right lower extremity Dressing clean dry and intact Cultures negative from knee continue IV antibiotics as per medicine team. Objective Vital signs: Vital Signs Temp Pulse Resp BP Pulse Ox 09/15/17 07:00 81 14 118/62 98 09/15/17 06:00 85 16 117/55 98 09/15/17 05:00 82 16 126/62 97 09/15/17 04:00 97.9 F 82 14 106/69 96 09/15/17 03:00 82 12 120/72 98 09/15/17 02:00 80 11 111/64 99 09/15/17 01:18 11 121/58 95 09/15/17 01:00 98.5 F 75 13 117/67 98 09/15/17 00:00 97.5 F L 72 12 92/53 100 09/14/17 23:00 97.5 F L 67 11 104/64 100 09/14/17 22:00 97.5 F L 73 12 99/68 98 09/14/17 21:16 12 100 09/14/17 21:00 73 12 108/61 96 09/14/17 20:00 93.5 F L 73 12 111/73 96 09/14/17 19:00 55 19 78/56 96 09/14/17 18:00 64 19 87/66 96 09/14/17 17:40 96 09/14/17 17:36 19 96 09/14/17 17:00 50 17 93/60 97 09/14/17 16:58 52 09/14/17 16:04 96.6 F L 09/14/17 16:00 56 17 80/57 97 09/14/17 15:30 17 97 09/14/17 15:00 58 17 119/75 97 09/14/17 14:00 61 17 120/78 97 09/14/17 13:15 64 09/14/17 13:02 18 97 09/14/17 13:00 64 16 117/77 97 09/14/17 12:25 98.6 F 09/14/17 12:00 64 16 105/65 97 09/14/17 11:12 16 112/70 97 09/14/17 11:00 68 16 115/69 97 09/14/17 10:00 71 16 106/66 97 09/14/17 09:02 16 115/69 97 09/14/17 09:00 73 16 102/66 97 Intake and Output 09/14/17 09/15/17 09/15/17 23:59 07:59 15:59 Intake Total 1255 / 1255 999 / 999 Output Total 932 / 932 827 / 827 Balance 323 / 323 172 / 172 Intake: IV Fluids 1255 / 1255 869 / 869 Calcium Chloride 4,000 MG In 0. 610 / 610 670 / 670 9 % Sodium Chloride 1,000 ML @ 40 mls/hr CRRT CONT [facility] Rx#: [id number] PrismaSATE BGK 4/2.5 5,000 ML @ 0 / 0 1500 mls/hr CRRT CONT [place] Rx#: [id number] PRECEDEX Premix 400 mcg In 100 130 / 130 ml @ 0.3 MCG/KG/HR 9.338 mls/hr IVC .[id number] [place] Rx#: [id number] FentaNYL (PF) 1,000 MCG In 0.9 110 / 110 % Sodium Chloride 80 ML @ 25 MCG/HR 2.5 mls/hr IVC [facility] Rx#:[id number] Phenylephrine 50 MG In Dextrose 255 / 255 199 / 199 5% 250 ML @ 25 MCG/MIN 7.65 mls/hr IVC CONT [facility] Rx#: [id number] Levaquin Premix 750mg/150 mL 150 / 150 750 mg In 150 ml @ 100 mls/hr IVPB Q48H [facility] Rx#:[id number] Oral 130 / 130 Output: Deanna 932 / 932 802 / 802 Catheter 0 / 0 25 / 25 Other: Blood Glucose* 126 147 - Labs CBC & BMP: 09/15/17 04:45 09/15/17 04:45 Labs: Abnormal lab results WBC 18.2 K/mcL (4.3-11.1) H 09/14/17 04:25 RBC 3.37 M/mcL (4.19-5.50) L 09/14/17 04:25 Hgb 9.7 g/dL (12.9-16.9) L 09/15/17 04:45 Hct 30.6 % (37.5-50.1) L 09/15/17 04:45 MCH 27.9 pg (28.0-33.3) L 09/14/17 04:25 MCHC 31.4 g/dL (31.6-35.5) L 09/14/17 04:25 RDW 15.0 % (11.5-14.5) H 09/14/17 04:25 Band Neutrophils % 10.0 % (0-4) H 09/11/17 05:20 Neutrophils # 10.2 K/mcL (1.6-8.9) H 09/14/17 04:25 Lymphocytes # 5.6 K/mcL (0.6-4.6) H 09/14/17 04:25 Monocytes # 2.1 K/mcL (0.0-1.3) H 09/14/17 04:25 Nucleated RBCs/100 WBC 0.1 /100 WBC (0) H 09/14/17 04:25 Reactive Lymphocytes Present (Not Present) A 09/13/17 01:37 ESR 67 mm/hr (0-10) H 09/11/17 05:20 APTT 23.5 Seconds (26.0-36.0) L 09/15/17 04:45 ABG pO2 74 mmHg (85-104) L 09/15/17 04:04 ABG O2 Saturation 93 % (95-98) L 09/15/17 04:04 ABG Base Excess -5 mEq/L (-2 to 3) L 09/15/17 04:04 VBG pH 7.19 pH Units (7.32-7.42) L* 09/13/17 01:54 VBG pCO2 56 mmHg (41-51) H 09/13/17 01:54 VBG pO2 86 mmHg (25-50) H 09/13/17 01:54 BUN 56 mg/dL (8-26) H 09/15/17 04:45 Creatinine 4.16 mg/dL (0.72-1.25) H 09/15/17 04:45 Est GFR ( Amer) 18 (> 60) L 09/15/17 04:45 Est GFR (Non-Af Amer) 14 (> 60) L 09/15/17 04:45 Glucose 108 mg/dL (70-99) H 09/15/17 04:45 POC Glucose 147 (58-89) H 09/15/17 00:18 Hemoglobin A1c 8.8 % (-5.6) H 09/13/17 01:37 Uric Acid 9.0 mg/dL (3.5-7.2) H 09/13/17 12:13 Phosphorus 6.1 mg/dL (2.3-4.7) H 09/15/17 04:45 AST 133 Units/L (5-34) H 09/15/17 04:45 ALT 104 Units/L (0-55) H 09/15/17 04:45 Creatine Kinase 267 Units/L (30-200) H 09/13/17 12:13 Troponin I 0.12 ng/mL (0-0.03) H* 09/13/17 12:13 C-Reactive Protein 424 mg/L (Less than 5) H 09/11/17 05:20 Serum Total Protein 5.8 g/dL (6.0-8.3) L 09/15/17 04:45 Albumin 2.0 g/dL (3.5-5.0) L 09/15/17 04:45 Globulin 3.8 g/dL (2.4-3.5) H 09/15/17 04:45 Albumin/Globulin Ratio 0.5 (1.1-2.2) L 09/15/17 04:45 Synovial Appearance Cloudy (Clear-Hazy) A 09/10/17 12:48 Synovial RBC 0.196 M/mcl (0.000-0.002) H 09/10/17 12:48 Synovial Tot Nuc Cell > [id number] TNC/mcL (0-200) H 09/10/17 12:48 Streptococcus sp PCR DETECTED (Not Detect) A 09/10/17 12:22 - VTE Documentation of Mechanical Device: Intermittent pneumatic compression device Consult Discharge Plan - Plan Referrals: Casey Monroy DO [Primary Care Provider] -
[2017-09-15 08:12] LABS: Basophils # 0.1 K/mcL (0.0-0.2); Basophils % 0.5 %; Eosinophils # 0.2 K/mcL (0.0-0.6); Eosinophils % 1.3 %; Hematocrit 29.1 % (37.5-50.1); Hemoglobin 9.1 g/dL (12.9-16.9); Lymphocytes # 3.6 K/mcL (0.6-4.6); Lymphocytes % 21.6 %; Mean Corpuscular HGB Conc 31.3 g/dL (31.6-35.5); Mean Corpuscular Hemoglobin 27.3 pg (28.0-33.3); Mean Corpuscular Volume 87.4 fL (83.0-100.0); Mean Platelet Volume 10.1 fL (9.4-12.4); Monocytes # 1.8 K/mcL (0.0-1.3); Monocytes % 10.6 %; Neutrophils # 10.3 K/mcL (1.6-8.9); Nucleated Red Blood Cells 0.2 /100 WBC (0); Platelet Count 195 K/mcL (140-400); Red Blood Count 3.33 M/mcL (4.19-5.50)
--- NOTE | 2017-09-15 08:34 | Pulmonology Progress Note ---
<Mellissa Ragsdale - Last Filed: 09/15/17 08:34> Date of Encounter: 09/15/17 Time of Encounter: 08:34 Assessment and Plan (1) Severe sepsis Current Visit: Yes Status: Acute -d/t septic joint, rt knee -last lactic acid WNL (1.1) -blood culture shows Strep. mutans -d/c ceftriaxone based on blood culture sensitivities and started levofloxacin 750mg @ 100mL/h IVPB Q12H (2) TITUS (acute kidney injury) Current Visit: Yes Status: Acute -etiology likely from multiple factors including: septic joint, sepsis, hypotension, and medication (vancomycin, ACEi) -metabolic acidosis with respiratory acidosis -renal function continues to worsen; BUN/Cr of 67/5.04 today (yesterday 46/2.86) -retroperitoneal ultrasound unremarkable -ATN suspected based on etiology of TITUS and reported muddy brown urine sediment -avoid nephrotoxins when possible and renal dose meds -strictly monitor urine output with oropeza -anticipating need for dialysis -nephrology consulted, recommendations appreciated (3) Septic joint Current Visit: Yes Status: Acute -rt total knee arthroplasty approx 10 years ago -(09/12) irrigation and debridement of rt knee -positive blood culture for Step. mutans; 2nd set of blood cultures show no growth preliminarily, awaiting final result -final gram stain of rt knee shows no bacteria observed -final culture of synovial fluid shows no pathogens isolated -ortho following, recommendations appreciated Qualifiers: Septic arthritis location: knee Septic arthritis organism: due to unspecified organism Laterality: right Qualified Code(s): M00.9 - Pyogenic arthritis, unspecified (4) SVT (supraventricular tachycardia) Current Visit: Yes Status: Acute -KEYA shows LVEF 60%, no evidence of vegetation, moderate pulmonary HTN, mild mitral regurgitation -d/c'd amiodarone gtt -no beta rae at this time, unlikely to tolerate given his HR 106/73 and pulse 73 -cardiology onboard (5) Elevated troponin Current Visit: Yes Status: Acute -troponins began trending down yesterday, last troponin 0.12 -likely 2/2 demand ischemia in setting of severe sepsis, TITUS, SVT, bacteremia -no further testing at this time, per cardiology -cardiology onboard (6) Diabetes mellitus Current Visit: Yes Status: Chronic -insulin sliding scale, now Q6H Qualifiers: Diabetes mellitus type: type 2 Diabetes mellitus complication status: without complication Diabetes mellitus intermediate designer insulin use: without residential use Qualified Code(s): E11.9 - Type 2 diabetes mellitus without complications (7) DVT prophylaxis Current Visit: Yes Status: Acute -Heparin 5000 units SubQ, Q12H -SCD on left calf Subjective Principal diagnosis: Right Knee - Poly Exchange, washout and closure 09/13/17 Interval history: Patient remains intubated and sedated on mechanical ventilation, therefore ROS couldn't be obtained. No overnight events reported. Objective PUL Vital signs: Last Vital Signs Temp 97.9 F 09/15/17 04:00 Pulse 85 09/15/17 08:00 Resp 16 09/15/17 08:00 BP 107/61 09/15/17 08:00 Pulse Ox 99 09/15/17 08:00 Results - Laboratory Findings CBC and BMP: 09/15/17 07:54 09/15/17 04:45 ABG ABG pH 7.32 pH Units (7.32-7.45) 09/15/17 04:04 ABG pCO2 42 mmHg (35-45) 09/15/17 04:04 ABG pO2 74 mmHg (85-104) L 09/15/17 04:04 ABG O2 Saturation 93 % (95-98) L 09/15/17 04:04 Abnormal lab findings: Abnormal lab results WBC 16.7 K/mcL (4.3-11.1) H 09/15/17 07:54 RBC 3.33 M/mcL (4.19-5.50) L 09/15/17 07:54 Hgb 9.1 g/dL (12.9-16.9) L 09/15/17 07:54 Hct 29.1 % (37.5-50.1) L 09/15/17 07:54 MCH 27.3 pg (28.0-33.3) L 09/15/17 07:54 MCHC 31.3 g/dL (31.6-35.5) L 09/15/17 07:54 RDW 15.0 % (11.5-14.5) H 09/15/17 07:54 Band Neutrophils % 10.0 % (0-4) H 09/11/17 05:20 Neutrophils # 10.3 K/mcL (1.6-8.9) H 09/15/17 07:54 Monocytes # 1.8 K/mcL (0.0-1.3) H 09/15/17 07:54 Nucleated RBCs/100 WBC 0.2 /100 WBC (0) H 09/15/17 07:54 Reactive Lymphocytes Present (Not Present) A 09/13/17 01:37 ESR 67 mm/hr (0-10) H 09/11/17 05:20 APTT 23.5 Seconds (26.0-36.0) L 09/15/17 04:45 ABG pO2 74 mmHg (85-104) L 09/15/17 04:04 ABG O2 Saturation 93 % (95-98) L 09/15/17 04:04 ABG Base Excess -5 mEq/L (-2 to 3) L 09/15/17 04:04 VBG pH 7.19 pH Units (7.32-7.42) L* 09/13/17 01:54 VBG pCO2 56 mmHg (41-51) H 09/13/17 01:54 VBG pO2 86 mmHg (25-50) H 09/13/17 01:54 BUN 56 mg/dL (8-26) H 09/15/17 04:45 Creatinine 4.16 mg/dL (0.72-1.25) H 09/15/17 04:45 Est GFR ( Amer) 18 (> 60) L 09/15/17 04:45 Est GFR (Non-Af Amer) 14 (> 60) L 09/15/17 04:45 Glucose 108 mg/dL (70-99) H 09/15/17 04:45 POC Glucose 147 (58-89) H 09/15/17 00:18 Hemoglobin A1c 8.8 % (-5.6) H 09/13/17 01:37 Uric Acid 9.0 mg/dL (3.5-7.2) H 09/13/17 12:13 Ionized Calcium 1.11 mmol/L (1.15-1.35) L 09/15/17 07:54 Phosphorus 6.1 mg/dL (2.3-4.7) H 09/15/17 04:45 AST 133 Units/L (5-34) H 09/15/17 04:45 ALT 104 Units/L (0-55) H 09/15/17 04:45 Creatine Kinase 267 Units/L (30-200) H 09/13/17 12:13 Troponin I 0.12 ng/mL (0-0.03) H* 09/13/17 12:13 C-Reactive Protein 424 mg/L (Less than 5) H 09/11/17 05:20 Serum Total Protein 5.8 g/dL (6.0-8.3) L 09/15/17 04:45 Albumin 2.0 g/dL (3.5-5.0) L 09/15/17 04:45 Globulin 3.8 g/dL (2.4-3.5) H 09/15/17 04:45 Albumin/Globulin Ratio 0.5 (1.1-2.2) L 09/15/17 04:45 Synovial Appearance Cloudy (Clear-Hazy) A 09/10/17 12:48 Synovial RBC 0.196 M/mcl (0.000-0.002) H 09/10/17 12:48 Synovial Tot Nuc Cell > [id number] TNC/mcL (0-200) H 09/10/17 12:48 Streptococcus sp PCR DETECTED (Not Detect) A 09/10/17 12:22 - Microbiology Findings Microbiology Findings: Microbiology, Last 48 Hours 09/12/17 20:05 Wound Culture - Final Right Knee Normal skin sadie. No apparent pathogens isolated. 09/13/17 01:37 Blood Culture - Preliminary Peripheral Venipuncture No growth. 09/13/17 01:30 Blood Culture - Preliminary Peripheral Venipuncture No growth. - Clinical Findings Intake & Output: Intake & Output 09/14/17 09/15/17 09/15/17 23:59 07:59 15:59 Intake Total 1255 / 1255 999 / 999 0 / 0 Output Total 932 / 932 827 / 827 114 / 114 Balance 323 / 323 172 / 172 -114 / -114 - VTE Documentation of Mechanical Device: Intermittent pneumatic compression device Consult Discharge Plan - Plan Referrals: Casey Monroy DO [Primary Care Provider] - <Gagan Steen - Last Filed: 09/15/17 10:07> Date of Encounter: 09/15/17 Objective PUL Vital signs: Last Vital Signs Temp 97.9 F 09/15/17 04:00 Pulse 85 09/15/17 08:00 Resp 16 09/15/17 08:00 BP 107/61 09/15/17 08:00 Pulse Ox 99 09/15/17 08:00 Results - Laboratory Findings CBC and BMP: 09/15/17 07:54 09/15/17 04:45 ABG ABG pH 7.32 pH Units (7.32-7.45) 09/15/17 04:04 ABG pCO2 42 mmHg (35-45) 09/15/17 04:04 ABG pO2 74 mmHg (85-104) L 09/15/17 04:04 ABG O2 Saturation 93 % (95-98) L 09/15/17 04:04 Abnormal lab findings: Abnormal lab results WBC 16.7 K/mcL (4.3-11.1) H 09/15/17 07:54 RBC 3.33 M/mcL (4.19-5.50) L 09/15/17 07:54 Hgb 9.1 g/dL (12.9-16.9) L 09/15/17 07:54 Hct 29.1 % (37.5-50.1) L 09/15/17 07:54 MCH 27.3 pg (28.0-33.3) L 09/15/17 07:54 MCHC 31.3 g/dL (31.6-35.5) L 09/15/17 07:54 RDW 15.0 % (11.5-14.5) H 09/15/17 07:54 Band Neutrophils % 10.0 % (0-4) H 09/11/17 05:20 Neutrophils # 10.3 K/mcL (1.6-8.9) H 09/15/17 07:54 Monocytes # 1.8 K/mcL (0.0-1.3) H 09/15/17 07:54 Nucleated RBCs/100 WBC 0.2 /100 WBC (0) H 09/15/17 07:54 Reactive Lymphocytes Present (Not Present) A 09/13/17 01:37 ESR 67 mm/hr (0-10) H 09/11/17 05:20 APTT 23.5 Seconds (26.0-36.0) L 09/15/17 04:45 ABG pO2 74 mmHg (85-104) L 09/15/17 04:04 ABG O2 Saturation 93 % (95-98) L 09/15/17 04:04 ABG Base Excess -5 mEq/L (-2 to 3) L 09/15/17 04:04 VBG pH 7.19 pH Units (7.32-7.42) L* 09/13/17 01:54 VBG pCO2 56 mmHg (41-51) H 09/13/17 01:54 VBG pO2 86 mmHg (25-50) H 09/13/17 01:54 BUN 56 mg/dL (8-26) H 09/15/17 04:45 Creatinine 4.16 mg/dL (0.72-1.25) H 09/15/17 04:45 Est GFR ( Amer) 18 (> 60) L 09/15/17 04:45 Est GFR (Non-Af Amer) 14 (> 60) L 09/15/17 04:45 Glucose 108 mg/dL (70-99) H 09/15/17 04:45 POC Glucose 147 (58-89) H 09/15/17 00:18 Hemoglobin A1c 8.8 % (-5.6) H 09/13/17 01:37 Uric Acid 9.0 mg/dL (3.5-7.2) H 09/13/17 12:13 Ionized Calcium 1.11 mmol/L (1.15-1.35) L 09/15/17 07:54 Phosphorus 6.1 mg/dL (2.3-4.7) H 09/15/17 04:45 AST 133 Units/L (5-34) H 09/15/17 04:45 ALT 104 Units/L (0-55) H 09/15/17 04:45 Creatine Kinase 267 Units/L (30-200) H 09/13/17 12:13 Troponin I 0.12 ng/mL (0-0.03) H* 09/13/17 12:13 C-Reactive Protein 424 mg/L (Less than 5) H 09/11/17 05:20 Serum Total Protein 5.8 g/dL (6.0-8.3) L 09/15/17 04:45 Albumin 2.0 g/dL (3.5-5.0) L 09/15/17 04:45 Globulin 3.8 g/dL (2.4-3.5) H 09/15/17 04:45 Albumin/Globulin Ratio 0.5 (1.1-2.2) L 09/15/17 04:45 Synovial Appearance Cloudy (Clear-Hazy) A 09/10/17 12:48 Synovial RBC 0.196 M/mcl (0.000-0.002) H 09/10/17 12:48 Synovial Tot Nuc Cell > 100588 TNC/mcL (0-200) H 09/10/17 12:48 Streptococcus sp PCR DETECTED (Not Detect) A 09/10/17 12:22 - Microbiology Findings Microbiology Findings: Microbiology, Last 48 Hours 09/12/17 20:05 Wound Culture - Final Right Knee Normal skin sadie. No apparent pathogens isolated. 09/13/17 01:37 Blood Culture - Preliminary Peripheral Venipuncture No growth. 09/13/17 01:30 Blood Culture - Preliminary Peripheral Venipuncture No growth. - Clinical Findings Intake & Output: Intake & Output 09/14/17 09/15/17 09/15/17 23:59 07:59 15:59 Intake Total 1255 / 1255 999 / 999 0 / 0 Output Total 932 / 932 827 / 827 114 / 114 Balance 323 / 323 172 / 172 -114 / -114 - Attending Attestation I examined this patient and my medical decision-making was reviewed with the Resident Physician. I agree with the documented findings, disposition and treatment plan as described except to the extent set forth below. We independently had [id number] contact with the patient Patient seen and examined at bedside Labs, radiology, chart personally reviewed. Management was reviewed during multidisciplinary critical care rounds. 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 Suspect mild Delirium. Cont narcotic pain control Pulm: Succesfully liberated from vent yesterday acceptable oxygenation on NC. Cont PAP at night for ZENA. Cards: SHock resolved weaned off vaso pressors. No further episodes of SVT. BB as needed FEN-GI:ADAT after bedside S/S eval. Renal: TITUS requiring VARNISH REMOVER. Appreciate nephro recs monitor electrolytes and replace per protocol renal dose all meds. ID: Strep Mutans bacteremia ECHO negative for vegetations. Cont Levaquin. Heme/Onc: DVT prophylaxis given Endo: Glucose Monitored Integ/MSK: Skin Care per routine ICU Nursing Protocol to prevent ulcers.. S/p right knee septic arthritis. with eval by Ortho with washout and hardware removal. . Lines: All lines examined without evidence of infection : Dispo: Stable for transfer to [facility]/Tele for ongoing care CODE: Full Code updated at bedside
[2017-09-15] MEDS ORDERED: Levofloxacin 750 MG/150 ML 750 MG/150 ML BAG IVPB SCH (09:00)
[2017-09-15] MEDS: Aspirin Enteric Coated 81 MG Tablet PO SCH (09:30)
[2017-09-15] MEDS: Docusate Oral Soln 100 MG/10 ML UDC PO SCH ×2 (09:31→20:56)
[2017-09-15] MEDS ORDERED: Albumin 25% 12.5gm/50mL 12.5 GM/50 ML IV.SOLN IVPB PRN ×2 (09:52→21:45)
[2017-09-15] MEDS ORDERED: 0.9 % Sodium Chloride 250 ML IVC PRN ×2 (09:52→21:45)
[2017-09-15] MEDS ORDERED: *HR* Heparin 10,000 UNIT/10 ML VIAL IV PRN ×2 (10:44→21:45)
[2017-09-15] MEDS ORDERED: 0.9 % Sodium Chloride 1,000 ML ONE (10:50)
[2017-09-15 11:20] LABS: Hepatitis B Surface Antigen Nonreactive (Nonreactive)
[2017-09-15] MEDS ORDERED: *HR* HYDROmorphone (PF) 1 MG/ML SYRINGE IVP PRN (11:30)
--- NOTE | 2017-09-15 16:14 | Event Note ---
Date of Encounter: 09/15/17 Time of Encounter: 16:13 Patient doing well, up eating in bed. Operative plan reviewed and patient voiced understanding. at bedside.
--- NOTE | 2017-09-15 17:46 | Nephrology Progress Note ---
Date of Encounter: 09/15/17 Time of Encounter: 09:00 - Assessment and Plan (1) TITUS (acute kidney injury) Current Visit: Yes Status: Acute With improving hemodynamics, I recommend switching him to intermittent HD for clearance and minimal UF today since he just was weaned off pressors. Will assess daily for HD based upon exam and labs. Continue to follow a renal protective strategy as able: dosing Rx by GFR, avoiding Nephrotoxins if able. I asked the SPEAKING UNIT ASSEMBLER to update the family on his renal status and regarding the switch to iHD from CVVHDF. I spent approximately 35 min in CCT in adjusting dialysis modalities, arranging the logistics with the engineering design manager, documentation, exam/interview and discussion with the ICU team. Thank you. (2) ATN (acute tubular necrosis) Current Visit: Yes Status: Acute Suspect ATN but yesterday his UOP was so poor that a UA with micro was not an option, though his urinary sediment (based upon a few drops noted in the oropeza line) clearly appeared muddy brown. (3) Metabolic acidosis Current Visit: Yes Status: Acute Improved slightly with Deanna overnight. HD today. (4) Hyperkalemia Current Visit: Yes Status: Acute Trending better with DOCK WORKER (5) Hyponatremia Current Visit: Yes Status: Acute Trending better with DOCK WORKER (6) Severe sepsis Current Visit: Yes Status: Acute Appreciate the primary team. Subjective Principal diagnosis: Right Knee - Poly Exchange, washout and closure 09/13/17 Interval history: Pt was seen and examined in the ICU earlier today (delayed documentation). He was awake and talking. SPEAKING UNIT ASSEMBLER at bedside and reported that the pt's BP and respiratory status had improved overnight; plus that the Deanna circuit had just clotted; she asked if I'm switching him to HD today. He voiced feeling slightly better and did not affirm CP or N/V. He did not voiced having cramping or dialysis related symptoms. No family at bedside at the moment. Objective - Vital Signs Vital signs: Vital Signs Temp Pulse Resp BP Pulse Ox 09/15/17 17:30 140/64 09/15/17 17:25 97.8 F 16 09/15/17 17:15 129/61 09/15/17 17:00 80 18 136/67 97 09/15/17 16:45 132/68 09/15/17 16:30 130/68 09/15/17 16:15 135/69 09/15/17 16:00 84 16 133/64 97 09/15/17 15:58 97.8 F 09/15/17 15:45 128/69 09/15/17 15:30 132/64 09/15/17 15:15 122/58 09/15/17 15:00 86 20 110/51 98 09/15/17 14:45 97.9 F 20 122/78 09/15/17 14:00 86 18 118/61 98 09/15/17 13:00 90 20 114/64 97 09/15/17 12:30 90 09/15/17 12:15 90 18 119/60 98 09/15/17 11:15 87 20 131/65 98 09/15/17 10:15 88 16 112/56 97 09/15/17 09:15 89 18 116/63 100 09/15/17 08:00 85 16 107/61 99 09/15/17 07:00 81 14 118/62 98 09/15/17 06:00 85 16 117/55 98 09/15/17 05:00 82 16 126/62 97 09/15/17 04:00 97.9 F 82 14 106/69 96 09/15/17 03:00 82 12 120/72 98 09/15/17 02:00 80 11 111/64 99 09/15/17 01:18 11 121/58 95 09/15/17 01:00 98.5 F 75 13 117/67 98 09/15/17 00:00 97.5 F L 72 12 92/53 100 09/14/17 23:00 97.5 F L 67 11 104/64 100 09/14/17 22:00 97.5 F L 73 12 99/68 98 09/14/17 21:16 12 100 09/14/17 21:00 73 12 108/61 96 09/14/17 20:00 93.5 F L 73 12 111/73 96 09/14/17 19:00 55 19 78/56 96 09/14/17 18:00 64 19 87/66 96 Intake and Output 09/15/17 09/15/17 09/15/17 07:59 15:59 23:59 Intake Total 999 / 999 1398 / 1398 Output Total 827 / 827 201 / 201 1100 / 1100 Balance 172 / 172 1197 / 1197 -1100 / -1100 Intake: IV Fluids 869 / 869 338 / 338 Calcium Chloride 4,000 MG In 0. 670 / 670 188 / 188 9 % Sodium Chloride 1,000 ML @ 40 mls/hr [facility] Rx#: [id number] PrismaSATE BGK 4/2.5 5,000 ML @ 0 / 0 1500 mls/hr [facility] Rx#: [id number] FentaNYL (PF) 1,000 MCG In 0.9 0 / 0 % Sodium Chloride 80 ML @ 25 MCG/HR 2.5 mls/hr IVC [facility] Rx#:[id number] Phenylephrine 50 MG In Dextrose 199 / 199 5% 250 ML @ 25 MCG/MIN 7.65 mls/hr [facility] Rx#: [id number] Levaquin Premix 750mg/150 mL 150 / 150 750 mg In 150 ml @ 100 mls/hr IVPB Q24H [facility] Rx#:[id number] Oral 130 / 130 460 / 460 Intake, Rinseback and Flushes 600 / 600 Output: Total Dialysis (HD) Output 1100 / 1100 Deanna 802 / 802 199 / 199 Catheter 25 / 25 2 / 2 Other: Meal Lunch Percent of Meal Consumed 50% Blood Glucose* 147 Hemodialysis Net Fluid Removed 366 1011 (mL) - General Appearance General appearance: Present: well-developed, well-nourished, appears started age , obese, frail EENT: Present: ATNC, PERRL, mucous membranes moist Neck: Present: supple Respiratory: Present: course breath sounds Cardiology: Present: edema (trace Left pedal edema), regular rate, regular rhythm, normal S1, normal S2 Dialysis Vascular Access: Venous Catheter (RIJ Temporary HD catheter was C/D/I) Gastrointestinal: Present: normoactive bowel sounds, no guarding, no organomegaly, obese Additional Comments: right knee incision lawrence noted Neurologic: Present: no focal deficit, confused (but alert to person and place) Musculoskeletal: Present: deformities (Right BKA) Psychiatric: Present: mood/affect appropriate, cooperative - Lab 09/15/17 07:54 09/15/17 04:45 Most recent lab results ABG pH 7.32 pH Units (7.32-7.45) 09/15/17 04:04 ABG pCO2 42 mmHg (35-45) 09/15/17 04:04 ABG pO2 74 mmHg (85-104) L 09/15/17 04:04 ABG HCO3 21 mEq/L (21-27) 09/15/17 04:04 ABG O2 Saturation 93 % (95-98) L 09/15/17 04:04 Calcium 9.6 mg/dL (8.6-10.8) 09/15/17 04:45 Phosphorus 6.1 mg/dL (2.3-4.7) H 09/15/17 04:45 Magnesium 2.3 mg/dL (1.6-2.6) 09/15/17 04:45 Urine Creatinine 143 mg/dL 09/13/17 12:35 Urine Sodium 52.0 mEq/L 09/13/17 12:35 - VTE Documentation of Mechanical Device: Intermittent pneumatic compression device Consult Discharge Plan - Plan Referrals: Casey Monroy DO [Primary Care Provider] -
[2017-09-15] MEDS ORDERED: Sennosides 8.6 MG TABLET PO SCH (21:00)
[2017-09-15] MEDS ORDERED: MOM Conc 10 ML UD.LIQ PO PRN (21:45)
[2017-09-15] MEDS ORDERED: *HR* Dextrose 50 % in Water (Syg) 50 ML SYRINGE IVP PRN (21:45)
[2017-09-15] MEDS ORDERED: Acetaminophen 325 MG TABLET PO PRN (21:45)
[2017-09-15] MEDS ORDERED: Ondansetron 4 MG/2 ML VIAL IVP PRN (21:45)
[2017-09-15] MEDS ORDERED: Dextrose Gel 15 GM PO PRN ×2 (21:45)
[2017-09-15] MEDS ORDERED: D5% in Water 1,000 ML IVC PRN (21:45)
[2017-09-15] MEDS ORDERED: Naloxone 0.4 MG/ML INJ IVP PRN (21:45)
[2017-09-15] MEDS: *HR* HYDROcodone/Acet 5/325 mg TABLET PO PRN (22:08)
[2017-09-15] MEDS: Temazepam 15 MG CAPSULE PO PRN (22:08)
[2017-09-16] MEDS: *HR* HYDROcodone/Acet 5/325 mg TABLET PO PRN ×3 (05:25→22:05)
[2017-09-16] MEDS: *HR* Heparin 5,000 UNIT/ML VIAL SQ SCH ×2 (05:25→17:48)
[2017-09-16 05:33] LABS: Basophils # 0.1 K/mcL (0.0-0.2); Basophils % 0.4 %; Eosinophils # 0.4 K/mcL (0.0-0.6); Eosinophils % 2.2 %; Hemoglobin 8.9 g/dL (12.9-16.9); Immature Granulocytes % 4.7 % (0-4); Lymphocytes # 4.1 K/mcL (0.6-4.6); Lymphocytes % 24.2 %; Mean Corpuscular Hemoglobin 28.4 pg (28.0-33.3); Mean Corpuscular Volume 86.3 fL (83.0-100.0); Monocytes # 1.8 K/mcL (0.0-1.3); Neutrophils # 9.7 K/mcL (1.6-8.9); Nucleated Red Blood Cells 0.2 /100 WBC (0); Platelet Count 221 K/mcL (140-400); Red Blood Count 3.13 M/mcL (4.19-5.50); Red Cell Distribution Width 14.8 % (11.5-14.5); Segmented Neutrophils % 57.5 %
[2017-09-16 05:50] LABS: Albumin/Globulin Ratio 0.5 (1.1-2.2); Bilirubin,Direct 0.5 mg/dL (0.0-0.5); Bilirubin,Indirect 0.2 mg/dL (0.0-1.2); Bilirubin,Total 0.7 mg/dL (0.2-1.2); Calcium 8.6 mg/dL (8.6-10.8); Globulin 3.4 g/dL (2.4-3.5); Total Protein 5.2 g/dL (6.0-8.3)
[2017-09-16 05:52] LABS: Albumin 1.8 g/dL (3.5-5.0)
[2017-09-16] MEDS: Insulin LISPRO 300 UNITS/3 ML VIAL SQ SCH ×4 (07:40→22:20)
[2017-09-16] MEDS ORDERED: Docusate Oral Soln 100 MG/10 ML UDC PO SCH (09:00)
--- NOTE | 2017-09-16 09:18 | Internal Med Progress Note ---
Date of Encounter: 09/16/17 Time of Encounter: 09:16 - Assessment and plan (1) TITUS (acute kidney injury) Current Visit: Yes Status: Acute Assessment and plan: likely ATN in the setting of severe sepsis, antibiotic use, hypotension; was on diuretic/ACEI/NSAID at home; Nephrology on board; patient has been on CVVHDF in the ICU, now switched to intermittent HD for ultrafiltration; received HD yesterday; serum creatinine and urine output noted to be improving; (2) Severe sepsis Current Visit: Yes Status: Resolved Assessment and plan: improving; presented with leukocytosis, tachycardia, TITUS with possible right septic prosthetic joint and bacteremia; continue antibiotics; (3) Septic joint Current Visit: Yes Status: Acute Assessment and plan: possible right prosthetic knee joint infection; Orthopedics on board, s/p irrigation, debridement, synovectomy and polyexchange on 09/12/17; local wound care and activity per Orthopedics; synovial fluid analysis shows high WBC with lymphocyte predominance, gram stain and culture negative; 2/2 blood cultures from 09/10 grew Strep mutans, sensitive to Levaquin; continue OV Levaquin; repeat blood cultures have since been negative; Qualifiers: Septic arthritis location: knee Septic arthritis organism: due to unspecified organism Laterality: right Qualified Code(s): M00.9 - Pyogenic arthritis, unspecified (4) ZENA (obstructive sleep apnea) Current Visit: Yes Status: Chronic Assessment and plan: continue nocturnal CPAP; (5) Diabetes mellitus Current Visit: Yes Status: Chronic Assessment and plan: blood sugars noted to be fairly controlled; continue Accucheck blood glucose monitoring with sliding scale insulin; diabetic diet; HbA1C 8.8%; Qualifiers: Diabetes mellitus type: type 2 Diabetes mellitus complication status: without complication Diabetes mellitus 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 insulin use: without 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 use Qualified Code(s): E11.9 - Type 2 diabetes mellitus without complications (6) HTN (hypertension) Current Visit: Yes Status: Chronic Assessment and plan: BP fairly controlled; slowly increasing BP; will use PRN IV Hydralazine for appropriate control and start low dose beta rae; ACEI on hold; Qualifiers: Hypertension type: essential hypertension Qualified Code(s): I10 - Essential (primary) hypertension (7) SVT (supraventricular tachycardia) Current Visit: Yes Status: Acute Assessment and plan: Echo showed no acute abnormality; HR has been controlled; start low dose beta rae; (8) Elevated troponin Current Visit: Yes Status: Resolved (9) Metabolic acidosis Current Visit: Yes Status: Resolved Assessment and plan: secondary to renal failure; improved now; - Subjective Interval history: Reports pain at [place] catheter site; urine noted to be clear; improving right knee pain, knee in brace; no fever/chills, nausea, vomiting; tolerates oral diet ; not requiring supplemental O2; - Constitutional Vitals: Temp Pulse Resp BP Pulse Ox 97.9 F 88 18 122/63 99 09/16/17 07:16 09/16/17 07:16 09/16/17 07:16 09/16/17 07:16 09/16/17 07:16 General appearance: Present: cooperative, mild distress, A&O X 3, answers questions appropriately - Respiratory Respiratory exam: Present: CTAB. Absent: accessory muscle use, rales, rhonchi, wheezes - Cardiovascular Cardiovascular exam: Present: RRR, +S1, +S2. Absent: diastolic murmur, gallop, rubs, systolic murmur - GI/Abdominal GI/Abdominal exam: Present: normal bowel sounds, soft (obese), no peritoneal signs. Absent: distended, tenderness - Extremities Exam Extremities exam: Present: full ROM (restricted in right knee), warm, radial pulses palpable and symmetrical. Absent: calf tenderness, cyanotic, pedal edema Additional comments: Right knee with surgical incision healing well, maurice intact; knee brace on; s/p right foot amputation - Neurological Exam Neurological exam: Present: CN II-XII intact, oriented X3, no focal deficits. Absent: pronater drift, facial droop, speech deficit Internal Medicine: Result - Labs CBC & Chem 7: 09/16/17 05:30 09/16/17 05:30 Labs: Short CBC 09/16/17 Range/Units 05:30 WBC 16.7 H (4.3-11.1) K/mcL Hgb 8.9 L (12.9-16.9) g/dL Hct 27.0 L (37.5-50.1) % Plt Count 221 (140-400) K/mcL Neutrophils # 9.7 H (1.6-8.9) K/mcL BMP 09/16/17 05:30 Sodium 136 Potassium 4.0 Chloride 101 Carbon Dioxide 28 BUN 47 H Creatinine 3.99 H Glucose 142 H Calcium 8.6 Liver Function 09/16/17 Range/Units 05:30 Total Bilirubin 0.7 (0.2-1.2) mg/dL Direct Bilirubin 0.5 (0.0-0.5) mg/dL AST 149 H (5-34) Units/L ALT 84 H (0-55) Units/L Alkaline Phosphatase 182 H (38-126) Units/L Albumin 1.8 L (3.5-5.0) g/dL - ABG Interpretation ABG results: ABG ABG pH 7.32 pH Units (7.32-7.45) 09/15/17 04:04 ABG pCO2 42 mmHg (35-45) 09/15/17 04:04 ABG pO2 74 mmHg (85-104) L 09/15/17 04:04 ABG O2 Saturation 93 % (95-98) L 09/15/17 04:04 - Impressions Impressions Knee X-Ray 09/15/17 01:00 IMPRESSION: Status post right knee arthroplasty with no acute complication. D/ / 09/15/2017 09:05:17 Wilber Pederson MD / silverio Interpreting Provider: Wilber Pederson MD - VTE Documentation of Mechanical Device: Intermittent pneumatic compression device Consult Discharge Plan - Plan Referrals: Casey Monroy DO [Primary Care Provider] -
[2017-09-16] MEDS: Aspirin Enteric Coated 81 MG Tablet PO SCH (09:25)
[2017-09-16 10:12] LABS: Hepatitis B Surface Antibody 0.05 mIU/mL
--- NOTE | 2017-09-16 13:54 | Nephrology Progress Note ---
Date of Encounter: 09/16/17 Time of Encounter: 13:52 - Assessment and Plan (1) TITUS (acute kidney injury) Current Visit: Yes Status: Acute Patient with acute kidney injury. He has received dialysis yesterday. I do not think he needs dialysis today. Will follow for renal recovery. If needed he will receive dialysis tomorrow. Please avoid nephrotoxic agents and adjust medications as needed for renal function. (2) ATN (acute tubular necrosis) Current Visit: Yes Status: Acute Patient with acute kidney injury secondary to acute tubular necrosis. Monitor for improvement. (3) Hyperkalemia Current Visit: Yes Status: Acute Resolved. (4) Hyponatremia Current Visit: Yes Status: Acute Resolved. (5) Metabolic acidosis Current Visit: Yes Status: Acute Resolved. Subjective Principal diagnosis: Right Knee - Poly Exchange, washout and closure 09/13/17 Interval history: Patient was seen and evaluated. He feels comfortable. He is not on BiPAP. He denies dyspnea and states his appetite is improving. Review of system otherwise is stable. Objective - Vital Signs Vital signs: Vital Signs Temp Pulse Resp BP Pulse Ox 09/16/17 12:08 97.9 F 90 18 164/73 95 09/16/17 07:16 97.9 F 88 18 122/63 99 09/16/17 03:48 10 99 09/16/17 03:32 98.5 F 90 17 133/70 99 09/15/17 22:39 15 98 09/15/17 21:45 98.1 F 90 17 124/70 98 09/15/17 20:51 96 18 136/56 99 09/15/17 19:39 90 24 122/62 100 09/15/17 19:00 86 24 106/46 98 09/15/17 18:00 97.5 F L 85 20 108/75 97 09/15/17 17:55 97.8 F 16 132/64 09/15/17 17:45 133/64 09/15/17 17:30 140/64 09/15/17 17:15 129/61 09/15/17 17:00 80 18 136/67 97 09/15/17 16:45 132/68 09/15/17 16:30 130/68 09/15/17 16:15 135/69 09/15/17 16:00 86 16 133/64 97 09/15/17 15:58 97.8 F 09/15/17 15:45 128/69 09/15/17 15:30 132/64 09/15/17 15:15 122/58 09/15/17 15:00 86 20 110/51 98 09/15/17 14:45 97.9 F 20 122/78 09/15/17 14:00 86 18 118/61 98 Intake and Output 09/15/17 09/16/17 09/16/17 23:59 07:59 15:59 Intake Total 240 / 240 0 / 0 Output Total 1110 / 1110 100 / 100 0 / 0 Balance -870 / -870 -100 / -100 0 / 0 Intake: Oral 240 / 240 0 / 0 Output: Urine 0 / 0 Urethral ([place]au[place]a) 10 10 Total Dialysis (HD) Output 1100 / 1100 Catheter 100 / 100 Other: Meal Dinner Percent of Meal Consumed 60% Weight 133.8 kg Blood Glucose* 175 135 152 Hemodialysis Net Fluid Removed 500 ml (mL) - General Appearance General appearance: Present: well-developed, well-nourished EENT: Present: ATNC Neck: Present: supple Respiratory: Present: clear Cardiology: Present: no edema Gastrointestinal: Present: obese Neurologic: Present: alert and oriented x3 Psychiatric: Present: mood/affect appropriate - Lab 09/16/17 05:30 09/16/17 05:30 Most recent lab results ABG pH 7.32 pH Units (7.32-7.45) 09/15/17 04:04 ABG pCO2 42 mmHg (35-45) 09/15/17 04:04 ABG pO2 74 mmHg (85-104) L 09/15/17 04:04 ABG HCO3 21 mEq/L (21-27) 09/15/17 04:04 ABG O2 Saturation 93 % (95-98) L 09/15/17 04:04 Calcium 8.6 mg/dL (8.6-10.8) 09/16/17 05:30 Phosphorus 6.1 mg/dL (2.3-4.7) H 09/15/17 04:45 Magnesium 2.3 mg/dL (1.6-2.6) 09/15/17 04:45 Urine Creatinine 143 mg/dL 09/13/17 12:35 Urine Sodium 52.0 mEq/L 09/13/17 12:35 - VTE Documentation of Mechanical Device: Intermittent pneumatic compression device Consult Discharge Plan - Plan Referrals: Casey Monroy DO [Primary Care Provider] -
[2017-09-16] MEDS: Levofloxacin 500 MG/100 ML 500 MG/100 ML BAG IVPB SCH (17:48)
[2017-09-16] MEDS ORDERED: LEVOFLOXACIN 500 MG/100 ML MLS IVPB SCH (18:00)
[2017-09-16] MEDS: *HR* HYDROmorphone (PF) 1 MG/ML SYRINGE IVP PRN (20:11)
[2017-09-16] MEDS: Sennosides 8.6 MG TABLET PO SCH (22:06)
[2017-09-17] MEDS: *HR* Heparin 5,000 UNIT/ML VIAL SQ SCH ×2 (04:58→17:14)
[2017-09-17] MEDS: *HR* HYDROmorphone (PF) 1 MG/ML SYRINGE IVP PRN ×4 (04:59→19:42)
[2017-09-17 05:11] LABS: Hematocrit 27.3 % (37.5-50.1); Immature Platelets 1.6 % (1.1-6.1); Mean Corpuscular Hemoglobin 28.2 pg (28.0-33.3); Mean Corpuscular Volume 85.6 fL (83.0-100.0); Mean Platelet Volume 9.5 fL (9.4-12.4); Monocytes # 1.8 K/mcL (0.0-1.3); Nucleated Red Blood Cells 0.2 /100 WBC (0); Platelet Count 297 K/mcL (140-400); Red Blood Count 3.19 M/mcL (4.19-5.50); Red Cell Distribution Width 14.8 % (11.5-14.5)
[2017-09-17 05:29] LABS: Albumin 1.9 g/dL (3.5-5.0); Albumin/Globulin Ratio 0.5 (1.1-2.2); Bilirubin,Direct 0.4 mg/dL (0.0-0.5); Bilirubin,Indirect 0.1 mg/dL (0.0-1.2); Bilirubin,Total 0.5 mg/dL (0.2-1.2); Calcium 8.5 mg/dL (8.6-10.8); Globulin 3.5 g/dL (2.4-3.5); Potassium 4.6 mEq/L (3.5-4.5); Total Protein 5.4 g/dL (6.0-8.3)
[2017-09-17 05:42] LABS: Anisocytosis 1+ (Not Present); Eosinophils # 0.4 K/mcL (0.0-0.6); Lymphocytes # 4.9 K/mcL (0.6-4.6); Neutrophils # 10.5 K/mcL (1.6-8.9); Platelet Estimate Normal (Normal); Reactive Lymphocytes Present (Not Present)
--- NOTE | 2017-09-17 08:12 | Nephrology Progress Note ---
Date of Encounter: 09/17/17 Time of Encounter: 08:01 - Assessment and Plan (1) TITUS (acute kidney injury) Current Visit: Yes Status: Acute Patient with acute kidney injury. Adjust medications for renal function. Avoid nephrotoxins. Patient oliguric, but urine output improving today. Will dialyze today for hyperkalemia and worsening azotemia. (2) ATN (acute tubular necrosis) Current Visit: Yes Status: Acute Patient with acute kidney injury secondary to acute tubular necrosis. Monitor for improvement. (3) Hyperkalemia Current Visit: Yes Status: Acute Dialysis today. (4) Hyponatremia Current Visit: Yes Status: Acute Treat with dialysis. (5) Metabolic acidosis Current Visit: Yes Status: Resolved Resolved. Subjective Principal diagnosis: Right Knee - Poly Exchange, washout and closure 09/13/17 Interval history: Patient was seen and evaluated. He feels comfortable. He is not on BiPAP. He denies dyspnea and states his appetite is improving. Review of system otherwise is stable. Objective - Vital Signs Vital signs: Vital Signs Temp Pulse Resp BP Pulse Ox 09/17/17 04:38 98.3 F 82 16 163/78 94 09/17/17 01:14 98.0 F 84 16 181/73 94 09/16/17 20:45 11 98 09/16/17 20:18 98.5 F 85 16 146/70 94 09/16/17 15:14 97.7 F 83 18 152/72 95 09/16/17 12:08 97.9 F 90 18 164/73 95 Intake and Output 09/16/17 09/17/17 09/17/17 23:59 07:59 15:59 Intake Total 120 / 120 5100 / 5100 Output Total 100 / 100 Balance 20 20 5100 / 5100 Intake: IV Fluids 5100 / 5100 Levaquin Premix 500mg/100mL 500 100 / 100 mg In 100 ml @ 100 mls/hr IVPB Q48H [facility] Rx#:[id number] Oral 120 / 120 0 / 0 Output: Catheter 100 / 100 Other: Meal No fluids given. Percent of Meal Consumed 50% Blood Glucose* 110 - General Appearance General appearance: Present: well-developed, well-nourished, obese EENT: Present: ATNC Neck: Present: supple Respiratory: Present: clear (Anteriorly) Cardiology: Present: edema, regular rate, regular rhythm Dialysis Vascular Access: Venous Catheter Gastrointestinal: Present: obese Integumentary: Present: warm and dry Neurologic: Present: alert and oriented x3 Psychiatric: Present: mood/affect appropriate ( ) - Lab 09/17/17 05:08 09/17/17 05:08 Most recent lab results ABG pH 7.32 pH Units (7.32-7.45) 09/15/17 04:04 ABG pCO2 42 mmHg (35-45) 09/15/17 04:04 ABG pO2 74 mmHg (85-104) L 09/15/17 04:04 ABG HCO3 21 mEq/L (21-27) 09/15/17 04:04 ABG O2 Saturation 93 % (95-98) L 09/15/17 04:04 Calcium 8.5 mg/dL (8.6-10.8) L 09/17/17 05:08 Phosphorus 6.1 mg/dL (2.3-4.7) H 09/15/17 04:45 Magnesium 2.3 mg/dL (1.6-2.6) 09/15/17 04:45 Urine Creatinine 143 mg/dL 09/13/17 12:35 Urine Sodium 52.0 mEq/L 09/13/17 12:35 - VTE Documentation of Mechanical Device: Intermittent pneumatic compression device Consult Discharge Plan - Plan Referrals: Casey Monroy DO [Primary Care Provider] -
[2017-09-17] MEDS: Insulin LISPRO 300 UNITS/3 ML VIAL SQ SCH ×4 (08:33→21:22)
[2017-09-17] MEDS ORDERED: 0.9 % Sodium Chloride 250 ML IVC PRN (08:35)
[2017-09-17] MEDS ORDERED: 0.9 % Sodium Chloride 1,000 ML PRIME SCH (08:45)
[2017-09-17] MEDS: Aspirin Enteric Coated 81 MG Tablet PO SCH (09:23)
--- NOTE | 2017-09-17 10:56 | Internal Med Progress Note ---
Date of Encounter: 09/17/17 Time of Encounter: 10:25 - Assessment and plan (1) TITUS (acute kidney injury) Current Visit: Yes Status: Acute Assessment and plan: likely ATN in the setting of severe sepsis, antibiotic use, hypotension; was on diuretic/ACEI/NSAID at home; Nephrology on board; patient has been on CVVHDF in the ICU, now switched to intermittent HD for ultrafiltration; receiving HD today; serum creatinine and urine output worsening; continue to monitor; (2) Severe sepsis Current Visit: Yes Status: Resolved Assessment and plan: improving; presented with leukocytosis, tachycardia, TITUS with possible right septic prosthetic joint and bacteremia; continue antibiotics; noted to have worsening leukocytosis, continue to monitor; (3) Septic joint Current Visit: Yes Status: Acute Assessment and plan: possible right prosthetic knee joint infection; Orthopedics on board, s/p irrigation, debridement, synovectomy and polyexchange on 09/12/17; local wound care and activity per Orthopedics; PT evaluation noted, recommend IP rehab; long term care social worker on board; synovial fluid analysis shows high WBC with lymphocyte predominance, gram stain and culture negative; 2/2 blood cultures from 09/10 grew Strep mutans, sensitive to Levaquin; continue IV Levaquin; repeat blood cultures have since been negative; Qualifiers: Septic arthritis location: knee Septic arthritis organism: due to unspecified organism Laterality: right Qualified Code(s): M00.9 - Pyogenic arthritis, unspecified (4) ZENA (obstructive sleep apnea) Current Visit: Yes Status: Chronic Assessment and plan: continue nocturnal CPAP; noncompliant; he just received it at home prior to this admission; (5) Diabetes mellitus Current Visit: Yes Status: Chronic Assessment and plan: blood sugars noted to be fairly controlled; continue Accucheck blood glucose monitoring with sliding scale insulin; diabetic diet; HbA1C 8.8%; Qualifiers: Diabetes mellitus type: type 2 Diabetes mellitus complication status: without complication 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 will use PRN IV Hydralazine for appropriate control and increase dose of beta rae; ACEI on hold; Qualifiers: Hypertension type: essential hypertension Qualified Code(s): I10 - Essential (primary) hypertension (7) SVT (supraventricular tachycardia) Current Visit: Yes Status: Acute (8) Elevated troponin Current Visit: Yes Status: Resolved (9) Metabolic acidosis Current Visit: Yes Status: Resolved - Subjective Interval history: Seen in hemodialysis unit; reports feeling somewhat better; requiring IV pain meds for right knee pain; no nausea, vomiting, abdominal or chest pain; no dyspnea; urine output decreased since yesterday; - Constitutional Vitals: Temp Pulse Resp BP Pulse Ox 97.8 F 88 16 164/83 96 09/17/17 08:26 09/17/17 08:26 09/17/17 08:26 09/17/17 08:26 09/17/17 08:26 General appearance: Present: cooperative, A&O X 3, morbidly obese, answers questions appropriately - Respiratory Respiratory exam: Present: CTAB (anterolaterally). Absent: accessory muscle use , rales, rhonchi, wheezes - Cardiovascular Cardiovascular exam: Present: RRR, +S1, +S2. Absent: diastolic murmur, gallop, rubs, systolic murmur - GI/Abdominal GI/Abdominal exam: Present: normal bowel sounds, soft (obese), no peritoneal signs. Absent: distended, tenderness - Extremities Exam Extremities exam: Present: pedal edema (left 1+ pedal edema), warm, radial pulses palpable and symmetrical. Absent: calf tenderness, cyanotic Additional comments: s/p right foot amputations Right knee with dry surgical incision and intact maurice; mild surrounding erythema in medial knee - Neurological Exam Neurological exam: Present: CN II-XII intact, oriented X3, no focal deficits. Absent: pronater drift, facial droop, speech deficit Internal Medicine: Result - Labs CBC & Chem 7: 09/18/17 06:05 09/18/17 06:05 Labs: Short CBC 09/17/17 Range/Units 05:08 WBC 17.5 H (4.3-11.1) K/mcL Hgb 9.0 L (12.9-16.9) g/dL Hct 27.3 L (37.5-50.1) % Plt Count 297 (140-400) K/mcL Neutrophils # 10.5 H (1.6-8.9) K/mcL BMP 09/17/17 05:08 Sodium 134 L Potassium 4.6 H Chloride 99 Carbon Dioxide 23 BUN 75 H D Creatinine 6.00 H D Glucose 122 H Calcium 8.5 L Liver Function 09/17/17 Range/Units 05:08 Total Bilirubin 0.5 (0.2-1.2) mg/dL Direct Bilirubin 0.4 (0.0-0.5) mg/dL AST 81 H (5-34) Units/L ALT 55 (0-55) Units/L Alkaline Phosphatase 212 H (38-126) Units/L Albumin 1.9 L (3.5-5.0) g/dL - ABG Interpretation ABG results: ABG ABG pH 7.32 pH Units (7.32-7.45) 09/15/17 04:04 ABG pCO2 42 mmHg (35-45) 09/15/17 04:04 ABG pO2 74 mmHg (85-104) L 09/15/17 04:04 ABG O2 Saturation 93 % (95-98) L 09/15/17 04:04 - VTE Documentation of Mechanical Device: Intermittent pneumatic compression device Consult Discharge Plan - Plan Referrals: Casey Monroy DO [Primary Care Provider] - (Patient willl follow up with [facility] pcp)
[2017-09-17] MEDS: Ringers Solution, Lactated 1,000 ML IVC SCH (17:53)
[2017-09-17] MEDS: Temazepam 15 MG CAPSULE PO PRN (21:19)
[2017-09-17] MEDS: Sennosides 8.6 MG TABLET PO SCH (21:19)
[2017-09-18] MEDS: *HR* Heparin 5,000 UNIT/ML VIAL SQ SCH ×2 (06:15→17:00)
[2017-09-18 06:17] LABS: Basophils # 0.1 K/mcL (0.0-0.2); Basophils % 0.5 %; Eosinophils # 0.4 K/mcL (0.0-0.6); Hematocrit 26.7 % (37.5-50.1); Hemoglobin 8.9 g/dL (12.9-16.9); Immature Granulocytes % 7.2 % (0-4); Lymphocytes # 4.7 K/mcL (0.6-4.6); Mean Corpuscular HGB Conc 33.3 g/dL (31.6-35.5); Mean Corpuscular Hemoglobin 28.2 pg (28.0-33.3); Mean Corpuscular Volume 84.5 fL (83.0-100.0); Mean Platelet Volume 8.9 fL (9.4-12.4); Monocytes # 1.7 K/mcL (0.0-1.3); Monocytes % 9.5 %; Nucleated Red Blood Cells 0.1 /100 WBC (0); Platelet Count 280 K/mcL (140-400); Red Blood Count 3.16 M/mcL (4.19-5.50); Red Cell Distribution Width 14.6 % (11.5-14.5); Segmented Neutrophils % 54.8 %
[2017-09-18 06:34] LABS: Platelet Estimate Normal (Normal)
[2017-09-18 06:46] LABS: Calcium 7.9 mg/dL (8.6-10.8); Potassium 4.6 mEq/L (3.5-4.5)
[2017-09-18 06:47] LABS: Albumin 1.8 g/dL (3.5-5.0)
[2017-09-18] MEDS: Insulin LISPRO 300 UNITS/3 ML VIAL SQ SCH ×4 (07:34→22:37)
[2017-09-18] MEDS: Aspirin Enteric Coated 81 MG Tablet PO SCH (09:34)
[2017-09-18] MEDS: *HR* HYDROmorphone (PF) 1 MG/ML SYRINGE IVP PRN (09:36)
--- NOTE | 2017-09-18 09:42 | Nephrology Progress Note ---
Date of Encounter: 09/18/17 Time of Encounter: 09:41 - Assessment and Plan (1) TITUS (acute kidney injury) Current Visit: Yes Status: Acute Patient with oliguric, multifactorial acute kidney injury. Seems to be from post-op status, vancomycin use and nephrotoxins. Adjust medications for renal function. Avoid nephrotoxins. Patient oliguric, but urine output improving the last two days. Will likely perform dialysis Wednesday 09/19 for hyperkalemia and worsening azotemia. Patient seems volume positive. Robust blood pressure. Most recent urinalysis unremarkable. (2) ATN (acute tubular necrosis) Current Visit: Yes Status: Acute Patient with acute kidney injury secondary to acute tubular necrosis. Monitor for improvement. Patient remains oliguric but urine output improving. (3) Hyperkalemia Current Visit: Yes Status: Acute Dialysis Tuesday. (4) Hyperphosphatemia Current Visit: Yes Status: Acute Phosphate binder. Renal diet. (5) Hyperuricemia Current Visit: Yes Status: Acute Start allopurinol or febuxostat on discharge. (6) Anemia Current Visit: Yes Status: Acute Check iron stores, vitamin b12, and folate. Qualifiers: Qualified Code(s): D64.9 - Anemia, unspecified Subjective Principal diagnosis: Right Knee - Poly Exchange, washout and closure 09/13/17 Interval history: Patient was seen and evaluated. He feels comfortable. He is not on BiPAP. He denies dyspnea and states his appetite is improving. Review of system otherwise is stable. Objective - Vital Signs Vital signs: Vital Signs Temp Pulse Resp BP Pulse Ox 09/18/17 06:56 98.4 F 76 16 162/77 97 09/18/17 03:54 98.0 F 87 16 171/69 95 09/18/17 00:37 98.4 F 81 16 167/70 96 09/17/17 20:21 98.1 F 81 16 156/75 95 09/17/17 16:06 98.3 F 80 16 132/74 95 09/17/17 13:09 97.6 F 18 141/70 09/17/17 13:00 131/61 09/17/17 12:45 113/45 09/17/17 12:30 119/51 09/17/17 12:15 127/51 09/17/17 12:00 118/60 09/17/17 11:45 119/57 09/17/17 11:30 123/61 09/17/17 11:15 117/52 09/17/17 11:00 120/59 09/17/17 10:45 124/51 09/17/17 10:30 127/64 09/17/17 10:15 118/62 09/17/17 10:00 97.4 F L 20 135/62 Intake and Output 09/17/17 09/18/17 09/18/17 23:59 07:59 15:59 Intake Total 120 / 120 Output Total 200 / 200 Balance -200 / -200 120 / 120 Intake: Oral 120 / 120 Output: Urine 200 / 200 Other: Meal Breakfast Percent of Meal Consumed 70% Weight 128.6 kg Blood Glucose* 164 136 Patient Weight 09/18/17 23:59 Weight 128.6 kg - General Appearance General appearance: Present: well-developed, well-nourished, obese EENT: Present: ATNC Respiratory: Present: clear (anteriorly) Cardiology: Present: edema (trace edema), regular rate, regular rhythm Gastrointestinal: Present: normoactive bowel sounds, obese Integumentary: Present: warm and dry Neurologic: Present: alert and oriented x3 Musculoskeletal: Present: no cyanosis Psychiatric: Present: mood/affect appropriate - Lab 09/18/17 06:05 09/18/17 06:05 Most recent lab results ABG pH 7.32 pH Units (7.32-7.45) 09/15/17 04:04 ABG pCO2 42 mmHg (35-45) 09/15/17 04:04 ABG pO2 74 mmHg (85-104) L 09/15/17 04:04 ABG HCO3 21 mEq/L (21-27) 09/15/17 04:04 ABG O2 Saturation 93 % (95-98) L 09/15/17 04:04 Calcium 7.9 mg/dL (8.6-10.8) L 09/18/17 06:05 Phosphorus 7.0 mg/dL (2.3-4.7) H 09/18/17 06:05 Magnesium 2.3 mg/dL (1.6-2.6) 09/15/17 04:45 Urine Creatinine 143 mg/dL 09/13/17 12:35 Urine Sodium 52.0 mEq/L 09/13/17 12:35 - VTE Documentation of Mechanical Device: Intermittent pneumatic compression device Consult Discharge Plan - Plan Referrals: Casey Monroy DO [Primary Care Provider] - (Patient willl follow up with [facility] p[facility])
--- NOTE | 2017-09-18 10:12 | Internal Med Progress Note ---
Date of Encounter: 09/18/17 Time of Encounter: 10:06 - Assessment and plan (1) Hallucinations Current Visit: Yes Status: Acute Assessment and plan: New onset, started last evening. Likely due to ongoing medical problems including renal failure, underlying infection, use of benzodiazepines and narcotic pain medications. Currently improving. We will repeat blood cultures to assess for infection and sepsis. Orthopedics to evaluate right knee for residual infection. (2) TITUS (acute kidney injury) Current Visit: Yes Status: Acute Assessment and plan: likely ATN in the setting of severe sepsis, antibiotic use, hypotension; was on diuretic/ACEI/NSAID at home; Nephrology on board; patient has been on CVVHDF in the ICU, now switched to temporary HD; serum creatinine and urine output worsening; continue to monitor; scheduled for hemodialysis tomorrow. (3) Severe sepsis Current Visit: Yes Status: Resolved Assessment and plan: presented with leukocytosis, tachycardia, TITUS with possible right septic prosthetic joint and bacteremia with Streptococcus mutans; continue IV Levaquin ; continues to have worsening leukocytosis, which could be due to ongoing renal failure and right knee inflammation. We will repeat blood cultures, orthopedics to reevaluate right knee. Leukocytosis less likely due to mantle cell lymphoma at this time. (4) Septic joint Current Visit: Yes Status: Acute Assessment and plan: possible right prosthetic knee joint infection; Orthopedics on board, s/p irrigation, debridement, synovectomy and polyexchange on 09/12/17; local wound care and activity per Orthopedics; PT evaluation noted, recommend IP rehab; social services counselor on board; synovial fluid analysis shows high WBC with lymphocyte predominance, gram stain and culture negative; 2/2 blood cultures from 09/10 grew Strep mutans, sensitive to Levaquin; continue IV Levaquin; repeat blood cultures from 09/13 negative; 09/18- will repeat blood cultures today; right knee incision noted to be bleeding, Orthopedics to reevaluate; Qualifiers: Septic arthritis location: knee Septic arthritis organism: due to unspecified organism Laterality: right Qualified Code(s): M00.9 - Pyogenic arthritis, unspecified (5) ZENA (obstructive sleep apnea) Current Visit: Yes Status: Chronic Assessment and plan: continue nocturnal CPAP; noncompliant; he just received it at home prior to this admission; encouraged to start using it to help his confusion and hallucinations; (6) Diabetes mellitus Current Visit: Yes Status: Chronic Assessment and plan: blood sugars noted to be well-controlled; continue Accucheck blood glucose monitoring with sliding scale insulin; diabetic diet; HbA1C 8.8%; Qualifiers: Diabetes mellitus type: type 2 Diabetes mellitus complication status: without complication Diabetes mellitus skilled nursing insulin use: without skilled nursing use Qualified Code(s): E11.9 - Type 2 diabetes mellitus without complications (7) HTN (hypertension) Current Visit: Yes Status: Chronic Assessment and plan: BP continues to be elevated. Start PO Hydralazine, continue beta rae. will use PRN IV Hydralazine for appropriate control; ACEI on hold; Qualifiers: Hypertension type: essential hypertension Qualified Code(s): I10 - Essential (primary) hypertension (8) SVT (supraventricular tachycardia) Current Visit: Yes Status: Resolved Assessment and plan: Echo showed no acute abnormality; HR has been controlled; continue beta rae; (9) Elevated troponin Current Visit: Yes Status: Resolved (10) Metabolic acidosis Current Visit: Yes Status: Resolved - Subjective Interval history: Reports hallucinations and some confusion last evening and early this morning; also reports insomnia; has constipation, reports Sauceda catheter is making him uncomfortable; right knee surgical incision noted to be bleeding, will have his on-site dressing changed; - Constitutional Vitals: Temp Pulse Resp BP Pulse Ox 98.4 F 76 16 162/77 97 09/18/17 06:56 09/18/17 06:56 09/18/17 06:56 09/18/17 06:56 09/18/17 06:56 General appearance: Present: A&O X 3, morbidly obese, answers questions appropriately - Respiratory Respiratory exam: Present: CTAB. Absent: accessory muscle use, rales, rhonchi, wheezes - Cardiovascular Cardiovascular exam: Present: RRR, +S1, +S2. Absent: diastolic murmur, gallop, rubs, systolic murmur - GI/Abdominal GI/Abdominal exam: Present: normal bowel sounds, soft, no peritoneal signs. Absent: distended, tenderness - Extremities Exam Extremities exam: Present: pedal edema (right knee surgical incision with fried blood and some fresh bleeding in the distal wound;), warm, radial pulses palpable and symmetrical. Absent: calf tenderness, cyanotic Internal Medicine: Result - Labs CBC & Chem 7: 09/19/17 06:50 09/19/17 06:50 Labs: Short CBC 09/18/17 Range/Units 06:05 WBC 18.2 H (4.3-11.1) K/mcL Hgb 8.9 L (12.9-16.9) g/dL Hct 26.7 L (37.5-50.1) % Plt Count 280 (140-400) K/mcL Neutrophils # 10.0 H (1.6-8.9) K/mcL BMP 09/18/17 06:05 Sodium 137 Potassium 4.6 H Chloride 99 Carbon Dioxide 25 BUN 72 H Creatinine 6.20 H Glucose 155 H Calcium 7.9 L Liver Function 09/18/17 Range/Units 06:05 Albumin 1.8 L (3.5-5.0) g/dL - ABG Interpretation ABG results: ABG ABG pH 7.32 pH Units (7.32-7.45) 09/15/17 04:04 ABG pCO2 42 mmHg (35-45) 09/15/17 04:04 ABG pO2 74 mmHg (85-104) L 09/15/17 04:04 ABG O2 Saturation 93 % (95-98) L 09/15/17 04:04 - VTE Documentation of Mechanical Device: Intermittent pneumatic compression device Consult Discharge Plan - Plan Referrals: Casey Monroy DO [Primary Care Provider] - 09/27/17 9:20 am (Please follow up as schedule...)
[2017-09-18 14:09] LABS: ABG Base Excess 2 mEq/L (-2 to 3); ABG HCO3 26 mEq/L (21-27); ABG Oxygen Saturation 93 % (95-98); ABG PCO2 36 mmHg (35-45); ABG PH 7.46 pH Units (7.32-7.45); ABG PO2 62 mmHg (85-104); ABG TCO2 27 mEq/L (20-26)
[2017-09-18] MEDS: Levofloxacin 500 MG/100 ML 500 MG/100 ML BAG IVPB SCH (16:57)
[2017-09-18] MEDS: hydrALAZINE 25 MG TABLET PO SCH ×2 (16:57→22:59)
[2017-09-18] MEDS: *HR* HYDROcodone/Acet 5/325 mg TABLET PO PRN ×2 (16:57→22:59)
[2017-09-18] MEDS: Melatonin 3 MG TABLET PO PRN (22:36)
[2017-09-18] MEDS: Sennosides/Docusate Sodium TABLET PO SCH (22:36)
[2017-09-18] MEDS: Sennosides 8.6 MG TABLET PO SCH (22:37)
[2017-09-19 04:57] LABS: % Iron Saturation 12 % (20-55); Creatine Kinase 82 Units/L (30-200); Iron 23 mcg/dL (65-175); Transferrin 132 mg/dL (174-364)
[2017-09-19 05:17] LABS: Ferritin 442 ng/ml (22-275)
[2017-09-19 05:32] LABS: Folate 9.2 ng/mL (7.0-31.4); Vitamin B12 > 2000 pg/mL (213-816)
[2017-09-19] MEDS: *HR* HYDROcodone/Acet 5/325 mg TABLET PO PRN ×2 (06:09→19:59)
[2017-09-19] MEDS: *HR* Heparin 5,000 UNIT/ML VIAL SQ SCH ×2 (06:09→17:07)
--- NOTE | 2017-09-19 06:41 | Orthopedics Progress Note ---
Date of Encounter: 09/19/17 Time of Encounter: 06:39 Subjective Principal diagnosis: Right Knee - Poly Exchange, washout and closure 09/13/17 Interval history: Patient seen this morning's concern for mental status changes over the weekend. This point patient is awake and alert and oriented. Right lower extremity Bloody drainage at the distal end of the incision Otherwise clean dry and intact Minimal erythema Minimal swelling Patient underwent a irrigation debridement poly-exchange. This was not the procedure twice but the patient's medical status oriented in minimal procedure time. Patient's Gram stain was negative from the knee as well as cultures being negative. Patient suffering from kidney failure. Recommend continued observation since additional surgery will be aggressive with resection arthroplasty and placement of cement spacer. We will correlate plan with medical team Objective Vital signs: Vital Signs Temp Pulse Resp BP Pulse Ox 09/19/17 04:27 97.4 F L 66 15 166/79 97 09/19/17 00:32 97.7 F 70 17 141/74 96 09/18/17 19:31 98.4 F 76 16 147/72 97 09/18/17 16:11 97.7 F 77 16 143/72 96 09/18/17 10:55 97.8 F 77 16 162/75 95 09/18/17 06:56 98.4 F 76 16 162/77 97 Intake and Output 09/18/17 09/18/17 09/19/17 15:59 23:59 07:59 Intake Total 120 / 120 0 / 0 Output Total 0 / 0 250 / 250 600 / 600 Balance 120 / 120 -250 / -250 -600 / -600 Intake: Oral 120 / 120 0 / 0 Output: Urine 0 / 0 100 / 100 600 / 600 Catheter 150 / 150 Other: Meal Breakfast Percent of Meal Consumed 70% Stool Size Large Stool Consistency soft Stool Color Brown # Voids 0 # Bowel Movements 1 Weight 126.6 kg Blood Glucose* 130 118 Patient Weight 09/19/17 23:59 Weight 126.6 kg - Labs CBC & BMP: 09/18/17 06:05 09/18/17 06:05 Labs: Abnormal lab results WBC 18.2 K/mcL (4.3-11.1) H 09/18/17 06:05 RBC 3.16 M/mcL (4.19-5.50) L 09/18/17 06:05 Hgb 8.9 g/dL (12.9-16.9) L 09/18/17 06:05 Hct 26.7 % (37.5-50.1) L 09/18/17 06:05 RDW 14.6 % (11.5-14.5) H 09/18/17 06:05 MPV 8.9 fL (9.4-12.4) L 09/18/17 06:05 Immature Gran % 7.2 % (0-4) H 09/18/17 06:05 Neutrophils # 10.0 K/mcL (1.6-8.9) H 09/18/17 06:05 Lymphocytes # 4.7 K/mcL (0.6-4.6) H 09/18/17 06:05 Monocytes # 1.7 K/mcL (0.0-1.3) H 09/18/17 06:05 Nucleated RBCs/100 WBC 0.1 /100 WBC (0) H 09/18/17 06:05 Reactive Lymphocytes Present (Not Present) A 09/17/17 05:08 Anisocytosis 1+ (Not Present) A 09/17/17 05:08 ESR 67 mm/hr (0-10) H 09/11/17 05:20 APTT 23.5 Seconds (26.0-36.0) L 09/15/17 04:45 ABG pH 7.46 pH Units (7.32-7.45) H 09/18/17 14:06 ABG pO2 62 mmHg (85-104) L 09/18/17 14:06 ABG Total CO2 27 mEq/L (20-26) H 09/18/17 14:06 ABG O2 Saturation 93 % (95-98) L 09/18/17 14:06 VBG pH 7.19 pH Units (7.32-7.42) L* 09/13/17 01:54 VBG pCO2 56 mmHg (41-51) H 09/13/17 01:54 VBG pO2 86 mmHg (25-50) H 09/13/17 01:54 Potassium 4.6 mEq/L (3.5-4.5) H 09/18/17 06:05 BUN 72 mg/dL (8-26) H 09/18/17 06:05 Creatinine 6.20 mg/dL (0.72-1.25) H 09/18/17 06:05 Est GFR ( Amer) 11 (> 60) L 09/18/17 06:05 Est GFR (Non-Af Amer) 9 (> 60) L 09/18/17 06:05 Glucose 155 mg/dL (70-99) H 09/18/17 06:05 POC Glucose 184 (58-89) H 09/18/17 16:10 Hemoglobin A1c 8.8 % (-5.6) H 09/13/17 01:37 Calculated Osmolality 308 (280-300) H 09/18/17 06:05 Uric Acid 9.0 mg/dL (3.5-7.2) H 09/13/17 12:13 Calcium 7.9 mg/dL (8.6-10.8) L 09/18/17 06:05 Ionized Calcium 1.11 mmol/L (1.15-1.35) L 09/15/17 07:54 Phosphorus 7.0 mg/dL (2.3-4.7) H 09/18/17 06:05 Iron 23 mcg/dL (65-175) L 09/19/17 04:35 % Saturation 12 % (20-55) L 09/19/17 04:35 Transferrin 132 mg/dL (174-364) L 09/19/17 04:35 Ferritin 442 ng/ml (22-275) H 09/19/17 04:35 AST 81 Units/L (5-34) H 09/17/17 05:08 Alkaline Phosphatase 212 Units/L (38-126) H 09/17/17 05:08 C-Reactive Protein 424 mg/L (Less than 5) H 09/11/17 05:20 Serum Total Protein 5.4 g/dL (6.0-8.3) L 09/17/17 05:08 Albumin 1.8 g/dL (3.5-5.0) L 09/18/17 06:05 Albumin/Globulin Ratio 0.5 (1.1-2.2) L 09/17/17 05:08 Vitamin B12 > 2000 pg/mL (213-816) H 09/19/17 04:35 Synovial Appearance Cloudy (Clear-Hazy) A 09/10/17 12:48 Synovial RBC 0.196 M/mcl (0.000-0.002) H 09/10/17 12:48 Synovial Tot Nuc Cell > [id number] TNC/mcL (0-200) H 09/10/17 12:48 Streptococcus sp PCR DETECTED (Not Detect) A 09/10/17 12:22 - VTE Documentation of Mechanical Device: Intermittent pneumatic compression device Consult Discharge Plan - Plan Referrals: Casey Monroy DO [Primary Care Provider] - (Patient willl follow up with [facility] p[facility])
[2017-09-19 06:56] LABS: Hematocrit 26.2 % (37.5-50.1); Hemoglobin 8.6 g/dL (12.9-16.9); Immature Platelets 1.3 % (1.1-6.1); Mean Corpuscular HGB Conc 32.8 g/dL (31.6-35.5); Mean Corpuscular Volume 85.3 fL (83.0-100.0); Monocytes # 1.7 K/mcL (0.0-1.3); Platelet Count 361 K/mcL (140-400); Red Blood Count 3.07 M/mcL (4.19-5.50); Red Cell Distribution Width 14.9 % (11.5-14.5)
[2017-09-19 07:08] LABS: Albumin/Globulin Ratio 0.5 (1.1-2.2); Bilirubin,Total 0.4 mg/dL (0.2-1.2); Calcium 7.8 mg/dL (8.6-10.8); Globulin 3.5 g/dL (2.4-3.5); Potassium 5.1 mEq/L (3.5-4.5); Total Protein 5.3 g/dL (6.0-8.3)
[2017-09-19 07:11] LABS: Albumin 1.8 g/dL (3.5-5.0)
[2017-09-19 07:26] LABS: Eosinophils # 0.2 K/mcL (0.0-0.6); Lymphocytes # 1.9 K/mcL (0.6-4.6); Neutrophils # 17.6 K/mcL (1.6-8.9)
[2017-09-19] MEDS: Insulin LISPRO 300 UNITS/3 ML VIAL SQ SCH ×4 (07:58→22:27)
[2017-09-19] MEDS ORDERED: 0.9 % Sodium Chloride 250 ML IVC PRN (08:38)
[2017-09-19] MEDS ORDERED: *HR* Heparin 10,000 UNIT/10 ML VIAL IV PRN (08:38)
[2017-09-19] MEDS: Calcium Acetate 667 MG CAPSULE PO SCH ×3 (08:44→17:07)
[2017-09-19] MEDS ORDERED: 0.9 % Sodium Chloride 1,000 ML PRIME SCH (08:45)
[2017-09-19] MEDS: Sennosides/Docusate Sodium TABLET PO SCH ×2 (08:45→20:02)
[2017-09-19] MEDS: Aspirin Enteric Coated 81 MG Tablet PO SCH (08:45)
[2017-09-19] MEDS ORDERED: 0.9 % Sodium Chloride 2,000 ML ONE (09:37)
--- NOTE | 2017-09-19 15:31 | Nephrology Progress Note ---
Date of Encounter: 09/19/17 Time of Encounter: 11:00 - Assessment and Plan (1) TITUS (acute kidney injury) Current Visit: Yes Status: Acute SCr remains poor at 8.02, will continue HD with minimal UF since no signs of renal recovery yet Will continue to avoid nephrotoxins if possible Will monitor UOP closely Encouraged po fluids Subjective Principal diagnosis: Right Knee - Poly Exchange, washout and closure 09/13/17 Interval history: Pt seen and examined on HD doing well with no new complaints. Interim reviewed and noted. UOP still not great Objective - Vital Signs Vital signs: Vital Signs Temp Pulse Resp BP Pulse Ox 09/19/17 13:00 97.4 F L 18 128/58 09/19/17 12:50 125/55 09/19/17 12:35 133/64 09/19/17 12:20 124/54 09/19/17 12:05 116/55 09/19/17 11:50 111/55 09/19/17 11:35 113/59 09/19/17 11:20 122/57 09/19/17 11:05 117/55 09/19/17 10:50 107/55 09/19/17 10:35 116/58 09/19/17 10:20 118/58 09/19/17 10:05 134/57 09/19/17 09:50 125/63 09/19/17 09:35 122/57 09/19/17 09:20 97.7 F 18 124/56 09/19/17 06:46 97.2 F L 66 15 153/84 98 09/19/17 04:27 97.4 F L 66 15 166/79 97 09/19/17 00:32 97.7 F 70 17 141/74 96 09/18/17 19:31 98.4 F 76 16 147/72 97 09/18/17 16:11 97.7 F 77 16 143/72 96 Intake and Output 09/18/17 09/19/17 09/19/17 23:59 07:59 15:59 Intake Total 0 / 0 720 / 720 Output Total 250 / 250 600 / 600 2850 / 2850 Balance -250 / -250 -600 / -600 -2130 / -2130 Intake: Oral 0 / 0 120 / 120 Intake, Rinseback and Flushes 600 / 600 Output: Urine 100 / 100 600 / 600 250 / 250 Total Dialysis (HD) Output 2600 / 2600 Catheter 150 / 150 Other: Meal Breakfast Percent of Meal Consumed 60% Stool Size Large Small Stool Consistency soft loose liquid Stool Color Brown # Voids 0 # Bowel Movements 1 1 Weight 126.6 kg 126.6 kg Blood Glucose* 118 106 Hemodialysis Net Fluid Removed 2000 (mL) Patient Weight 09/19/17 23:59 Weight 126.6 kg - General Appearance General appearance: Present: well-developed, well-nourished EENT: Present: ATNC, mucous membranes moist Neck: Present: no JVD, supple Respiratory: Present: clear (ant bilat) Cardiology: Present: edema (trace LE), normal S1, normal S2 Dialysis Vascular Access: Venous Catheter (temp) Gastrointestinal: Present: no tenderness, no guarding Integumentary: Present: warm and dry Neurologic: Present: no focal deficit Additional Comments: surgical knee, righ Psychiatric: Present: mood/affect appropriate, cooperative - Lab 09/26/17 03:45 09/26/17 03:45 Most recent lab results ABG pH 7.46 pH Units (7.32-7.45) H 09/18/17 14:06 ABG pCO2 36 mmHg (35-45) 09/18/17 14:06 ABG pO2 62 mmHg (85-104) L 09/18/17 14:06 ABG HCO3 26 mEq/L (21-27) 09/18/17 14:06 ABG O2 Saturation 93 % (95-98) L 09/18/17 14:06 Calcium 7.8 mg/dL (8.6-10.8) L 09/19/17 06:50 Phosphorus 7.0 mg/dL (2.3-4.7) H 09/18/17 06:05 Magnesium 2.3 mg/dL (1.6-2.6) 09/15/17 04:45 Urine Creatinine 143 mg/dL 09/13/17 12:35 Urine Sodium 52.0 mEq/L 09/13/17 12:35 - VTE Documentation of Mechanical Device: Intermittent pneumatic compression device Consult Discharge Plan - Plan Referrals: Lia Helms, PAC [Physician [employer]] - 10/04/17 8:15 am Casey Monroy, DO [Primary Care Provider] - 09/27/17 9:20 am (Please follow up as schedule...)
[2017-09-19] MEDS: hydrALAZINE 25 MG TABLET PO SCH ×3 (16:14→23:24)
--- NOTE | 2017-09-19 16:54 | Internal Med Progress Note ---
Date of Encounter: 09/19/17 Time of Encounter: 14:30 - Assessment and plan (1) Hallucinations Current Visit: Yes Status: Resolved Assessment and plan: Likely due to ongoing medical problems including renal failure, underlying infection, use of benzodiazepines and narcotic pain medications. resolved; (2) TITUS (acute kidney injury) Current Visit: Yes Status: Acute Assessment and plan: likely ATN in the setting of severe sepsis, antibiotic use, hypotension; was on diuretic/ACEI/NSAID at home; Nephrology on board; patient has been on CVVHDF in the ICU, now switched to temporary HD; serum creatinine and urine output worsening; continue to monitor; received hemodialysis today. (3) Severe sepsis Current Visit: Yes Status: Resolved Assessment and plan: presented with leukocytosis, tachycardia, TITUS with possible right septic prosthetic joint and bacteremia with Streptococcus mutans; continue IV Levaquin ; continues to have worsening leukocytosis, which could be due to ongoing renal failure and right knee inflammation. Repeat blood cultures from 09/18 pending; case d/w Orthopedics- patient had complicated intraoperative course during previous washout, will require removal of hardware and cement spacer if continues to worsen clinically with no other source of infection; Check CT chest ; Leukocytosis less likely due to mantle cell lymphoma at this time. (4) Septic joint Current Visit: Yes Status: Acute Assessment and plan: possible right prosthetic knee joint infection; Orthopedics on board, s/p irrigation, debridement, synovectomy and polyexchange on 09/12/17; local wound care and activity per Orthopedics; PT evaluation noted, recommend IP rehab; health and social care teacher on board; synovial fluid analysis shows high WBC with lymphocyte predominance, gram stain and culture negative; 2/2 blood cultures from 09/10 grew Strep mutans, sensitive to Levaquin; continue IV Levaquin; repeat blood cultures from 09/13 negative; 09/18- will repeat blood cultures today; right knee incision noted to be bleeding, Orthopedics to reevaluate; 09/19- d/w Orthopedics, plan as above; f/up blood cultures and continue local wound care with HANS wraps; Qualifiers: Septic arthritis location: knee Septic arthritis organism: due to unspecified organism Laterality: right Qualified Code(s): M00.9 - Pyogenic arthritis, unspecified (5) ZENA (obstructive sleep apnea) Current Visit: Yes Status: Chronic (6) Diabetes mellitus Current Visit: Yes Status: Chronic Assessment and plan: blood sugars noted to be well-controlled; continue Accucheck blood glucose monitoring with sliding scale insulin; diabetic diet; HbA1C 8.8%; Qualifiers: Diabetes mellitus type: type 2 Diabetes mellitus complication status: without complication Diabetes mellitus terminologist insulin use: without terminologist use Qualified Code(s): E11.9 - Type 2 diabetes mellitus without complications (7) HTN (hypertension) Current Visit: Yes Status: Chronic Assessment and plan: BP better controlled; continue PO Hydralazine, continue beta rae. will use PRN IV Hydralazine for appropriate control; ACEI on hold; Qualifiers: Hypertension type: essential hypertension Qualified Code(s): I10 - Essential (primary) hypertension (8) SVT (supraventricular tachycardia) Current Visit: Yes Status: Resolved (9) Elevated troponin Current Visit: Yes Status: Resolved (10) Metabolic acidosis Current Visit: Yes Status: Resolved - Subjective Interval history: Feels tired, had returned from hemodialysis today. Improved confusion, resolved hallucinations. Tolerates oral diet. Reports bowel movements. Right knee pain controlled. - Constitutional Vitals: Temp Pulse Resp BP Pulse Ox 98.2 F 87 16 140/67 96 09/19/17 16:30 09/19/17 16:30 09/19/17 16:30 09/19/17 16:30 09/19/17 16:30 General appearance: Present: A&O X 3, morbidly obese, answers questions appropriately - Respiratory Respiratory exam: Present: CTAB. Absent: accessory muscle use, rales, rhonchi, wheezes - Cardiovascular Cardiovascular exam: Present: RRR, +S1, +S2. Absent: diastolic murmur, gallop, rubs, systolic murmur - GI/Abdominal GI/Abdominal exam: Present: normal bowel sounds, soft, no peritoneal signs. Absent: distended, tenderness - Extremities Exam Extremities exam: Present: pedal edema, warm, radial pulses palpable and symmetrical. Absent: calf tenderness, cyanotic Additional comments: Right knee dressing with Hans bandage intact - Neurological Exam Neurological exam: Present: CN II-XII intact, oriented X3, no focal deficits. Absent: pronater drift, facial droop, speech deficit Internal Medicine: Result - Labs CBC & Chem 7: 09/19/17 06:50 09/19/17 06:50 Labs: Short CBC 09/19/17 Range/Units 06:50 WBC 21.4 H (4.3-11.1) K/mcL Hgb 8.6 L (12.9-16.9) g/dL Hct 26.2 L (37.5-50.1) % Plt Count 361 (140-400) K/mcL Neutrophils # 17.6 H (1.6-8.9) K/mcL BMP 09/19/17 06:50 Sodium 135 L Potassium 5.1 H Chloride 97 L Carbon Dioxide 22 BUN 102 H D Creatinine 8.02 H Glucose 109 H Calcium 7.8 L Cardiac Enzymes 09/19/17 Range/Units 04:35 Troponin I 0.02 (0-0.03) ng/mL Liver Function 09/19/17 Range/Units 06:50 Total Bilirubin 0.4 (0.2-1.2) mg/dL AST 29 (5-34) Units/L ALT 22 (0-55) Units/L Alkaline Phosphatase 189 H (38-126) Units/L Albumin 1.8 L (3.5-5.0) g/dL - ABG Interpretation ABG results: ABG ABG pH 7.46 pH Units (7.32-7.45) H 09/18/17 14:06 ABG pCO2 36 mmHg (35-45) 09/18/17 14:06 ABG pO2 62 mmHg (85-104) L 09/18/17 14:06 ABG O2 Saturation 93 % (95-98) L 09/18/17 14:06 - Impressions Impressions Guidance Needle Placement Ultrasound 09/14/17 00:00 IMPRESSION: Ultrasound-guided right internal jugular non-tunneled dialysis catheter placement performed. D/ / 09/14/2017 11:56:29 Harpreet Ramesh MD / brit Interpreting Provider: Harpreet Ramesh MD Insertion Non-Tunneled Catheter 09/14/17 00:00 IMPRESSION: Ultrasound-guided right internal jugular non-tunneled dialysis catheter placement performed. D/ / 09/14/2017 11:56:29 Harpreet Ramesh MD / earnold Interpreting Provider: Harpreet Ramesh MD Chest CT 09/19/17 13:45 IMPRESSION: Bilateral pleural effusions and associated atelectasis. No suspicious infiltrate to suggest pneumonia. No adenopathy. Calcific Coronary atherosclerosis noted D/ / Kwasi Giles MD / Kwasi Giles MD Interpreting Provider: Kwasi Giles MD - VTE Documentation of Mechanical Device: Intermittent pneumatic compression device Consult Discharge Plan - Plan Referrals: Casey Monroy DO [Primary Care Provider] - 09/27/17 9:20 am (Please follow up as schedule...)
[2017-09-19] MEDS: Sennosides 8.6 MG TABLET PO SCH (20:02)
[2017-09-19] MEDS: Melatonin 3 MG TABLET PO PRN (20:02)
[2017-09-20] MEDS: *HR* HYDROcodone/Acet 5/325 mg TABLET PO PRN ×4 (03:47→23:57)
[2017-09-20] MEDS: *HR* Heparin 5,000 UNIT/ML VIAL SQ SCH ×2 (05:16→17:31)
[2017-09-20 05:38] LABS: Hematocrit 25.9 % (37.5-50.1); Hemoglobin 8.5 g/dL (12.9-16.9); Mean Corpuscular HGB Conc 32.8 g/dL (31.6-35.5); Mean Corpuscular Hemoglobin 27.9 pg (28.0-33.3); Mean Corpuscular Volume 84.9 fL (83.0-100.0); Mean Platelet Volume 9.2 fL (9.4-12.4); Platelet Count 290 K/mcL (140-400); Red Blood Count 3.05 M/mcL (4.19-5.50); Red Cell Distribution Width 14.7 % (11.5-14.5)
[2017-09-20 05:49] LABS: Calcium 7.9 mg/dL (8.6-10.8); Phosphorous 7.9 mg/dL (2.3-4.7); Potassium 4.6 mEq/L (3.5-4.5)
[2017-09-20 05:53] LABS: Albumin 1.9 g/dL (3.5-5.0)
--- NOTE | 2017-09-20 06:41 | Orthopedics Progress Note ---
Date of Encounter: 09/20/17 Time of Encounter: 06:40 Subjective Principal diagnosis: Right Knee - Poly Exchange, washout and closure 09/13/17 Interval history: Patient seen this morning doing better. States that the pain in the knee is improved. Right lower extremity Incision clean dry and intact no drainage on bandage Erythema resolved Recommend continue IV antibiotics no plan for additional right knee surgery at this time due to high risk and improvement Objective Vital signs: Vital Signs Temp Pulse Resp BP Pulse Ox 09/20/17 03:17 98.0 F 75 16 154/79 95 09/20/17 00:11 98.4 F 82 16 165/78 95 09/19/17 20:25 98.7 F 82 16 153/70 94 09/19/17 16:30 98.2 F 87 16 140/67 96 09/19/17 13:00 97.4 F L 18 128/58 09/19/17 12:50 125/55 09/19/17 12:35 133/64 09/19/17 12:20 124/54 09/19/17 12:05 116/55 09/19/17 11:50 111/55 09/19/17 11:35 113/59 09/19/17 11:20 122/57 09/19/17 11:05 117/55 09/19/17 10:50 107/55 09/19/17 10:35 116/58 09/19/17 10:20 118/58 09/19/17 10:05 134/57 09/19/17 09:50 125/63 09/19/17 09:35 122/57 09/19/17 09:20 97.7 F 18 124/56 09/19/17 06:46 97.2 F L 66 15 153/84 98 Intake and Output 09/19/17 09/19/17 09/20/17 15:59 23:59 07:59 Intake Total 720 / 720 Output Total 2850 / 2850 600 / 600 Balance -2130 / -2130 -600 / -600 Intake: Oral 120 / 120 Intake, Rinseback and Flushes 600 / 600 Output: Urine 250 / 250 600 / 600 Total Dialysis (HD) Output 2600 / 2600 Other: Meal Breakfast Percent of Meal Consumed 60% Stool Size Small Moderate Stool Consistency loose loose liquid liquid # Bowel Movements 1 1 Weight 126.6 kg 128.4 kg Blood Glucose* 202 Hemodialysis Net Fluid Removed 2000 (mL) Patient Weight 09/20/17 23:59 Weight 128.4 kg - Labs CBC & BMP: 09/20/17 05:20 09/20/17 05:20 Labs: Abnormal lab results WBC 21.9 K/mcL (4.3-11.1) H 09/20/17 05:20 RBC 3.05 M/mcL (4.19-5.50) L 09/20/17 05:20 Hgb 8.5 g/dL (12.9-16.9) L 09/20/17 05:20 Hct 25.9 % (37.5-50.1) L 09/20/17 05:20 MCH 27.9 pg (28.0-33.3) L 09/20/17 05:20 RDW 14.7 % (11.5-14.5) H 09/20/17 05:20 MPV 9.2 fL (9.4-12.4) L 09/20/17 05:20 Immature Gran % 7.2 % (0-4) H 09/18/17 06:05 Neutrophils # 17.6 K/mcL (1.6-8.9) H 09/19/17 06:50 Monocytes # 1.7 K/mcL (0.0-1.3) H 09/19/17 06:50 Nucleated RBCs/100 WBC 0.1 /100 WBC (0) H 09/18/17 06:05 Reactive Lymphocytes Present (Not Present) A 09/17/17 05:08 Anisocytosis 1+ (Not Present) A 09/17/17 05:08 ESR 112 mm/hr (0-10) H 09/19/17 08:58 APTT 23.5 Seconds (26.0-36.0) L 09/15/17 04:45 ABG pH 7.46 pH Units (7.32-7.45) H 09/18/17 14:06 ABG pO2 62 mmHg (85-104) L 09/18/17 14:06 ABG Total CO2 27 mEq/L (20-26) H 09/18/17 14:06 ABG O2 Saturation 93 % (95-98) L 09/18/17 14:06 VBG pH 7.19 pH Units (7.32-7.42) L* 09/13/17 01:54 VBG pCO2 56 mmHg (41-51) H 09/13/17 01:54 VBG pO2 86 mmHg (25-50) H 09/13/17 01:54 Potassium 4.6 mEq/L (3.5-4.5) H 09/20/17 05:20 BUN 72 mg/dL (8-26) H D 09/20/17 05:20 Creatinine 6.22 mg/dL (0.72-1.25) H 09/20/17 05:20 Est GFR ( Amer) 11 (> 60) L 09/20/17 05:20 Est GFR (Non-Af Amer) 9 (> 60) L 09/20/17 05:20 Glucose 111 mg/dL (70-99) H 09/20/17 05:20 POC Glucose 106 (58-89) H 09/19/17 06:45 Hemoglobin A1c 8.8 % (-5.6) H 09/13/17 01:37 Calculated Osmolality 306 (280-300) H 09/20/17 05:20 Uric Acid 9.0 mg/dL (3.5-7.2) H 09/13/17 12:13 Calcium 7.9 mg/dL (8.6-10.8) L 09/20/17 05:20 Ionized Calcium 1.11 mmol/L (1.15-1.35) L 09/15/17 07:54 Phosphorus 7.9 mg/dL (2.3-4.7) H 09/20/17 05:20 Iron 23 mcg/dL (65-175) L 09/19/17 04:35 % Saturation 12 % (20-55) L 09/19/17 04:35 Transferrin 132 mg/dL (174-364) L 09/19/17 04:35 Ferritin 442 ng/ml (22-275) H 09/19/17 04:35 Alkaline Phosphatase 189 Units/L (38-126) H 09/19/17 06:50 C-Reactive Protein 170 mg/L (Less than 5) H 09/19/17 08:58 Serum Total Protein 5.3 g/dL (6.0-8.3) L 09/19/17 06:50 Albumin 1.9 g/dL (3.5-5.0) L 09/20/17 05:20 Albumin/Globulin Ratio 0.5 (1.1-2.2) L 09/19/17 06:50 Vitamin B12 > 2000 pg/mL (213-816) H 09/19/17 04:35 Synovial Appearance Cloudy (Clear-Hazy) A 09/10/17 12:48 Synovial RBC 0.196 M/mcl (0.000-0.002) H 09/10/17 12:48 Synovial Tot Nuc Cell > 490455 TNC/mcL (0-200) H 09/10/17 12:48 Streptococcus sp PCR DETECTED (Not Detect) A 09/10/17 12:22 - VTE Documentation of Mechanical Device: Intermittent pneumatic compression device Consult Discharge Plan - Plan Referrals: Casey Monroy DO [Primary Care Provider] - 09/27/17 9:20 am (Please follow up as schedule...)
[2017-09-20 07:06] LABS: Eosinophils # 0.9 K/mcL (0.0-0.6); Lymphocytes # 6.1 K/mcL (0.6-4.6); Monocytes # 2.2 K/mcL (0.0-1.3); Neutrophils # 12.7 K/mcL (1.6-8.9)
[2017-09-20 07:07] LABS: Platelet Estimate Normal (Normal)
[2017-09-20 07:09] LABS: Hypochromasia Present (Not Present)
[2017-09-20 07:10] LABS: Reactive Lymphocytes Present (Not Present); Toxic Granulation Present (Not Present)
[2017-09-20] MEDS: Insulin LISPRO 300 UNITS/3 ML VIAL SQ SCH ×4 (07:22→20:26)
[2017-09-20] MEDS: hydrALAZINE 25 MG TABLET PO SCH ×2 (09:07→17:31)
[2017-09-20] MEDS: Aspirin Enteric Coated 81 MG Tablet PO SCH (09:07)
[2017-09-20] MEDS: Sennosides/Docusate Sodium TABLET PO SCH ×2 (09:07→22:58)
[2017-09-20] MEDS: Calcium Acetate 667 MG CAPSULE PO SCH ×3 (09:07→17:31)
--- NOTE | 2017-09-20 11:03 | Nephrology Progress Note ---
<Yenni Mcbride - Last Filed: 09/20/17 11:17> Date of Encounter: 09/20/17 Time of Encounter: 11:01 - Assessment and Plan (1) TITUS (acute kidney injury) Current Visit: Yes Status: Acute Scr 6.22, GFR 9 UOP improving-850ml yesterday, already has 900ml out today Spoke with patient re: permacath placement and outpatient dialysis while we monitor for renal recovery; patient is agreeable to permacath placement and having outpatient dialysis Will make NPO tonight for permacath placement tomorrow Consult to IR for permacath placement tomorrow Consult to social welfare administrator to set up day/time for outpatient dialysis at [facility] From a kidney standpoint patient can be discharged once permacath placed and he has a chair time for outpatient dialysis Plan for HD tomorrow (2) ATN (acute tubular necrosis) Current Visit: Yes Status: Acute Monitor for improvement UOP improving see above (3) Hyperphosphatemia Current Visit: Yes Status: Acute Continue Phoslo and renal diet Subjective Principal diagnosis: Right Knee - Poly Exchange, washout and closure 09/13/17 Interval history: Patient seen and examined. Working with P.T. Objective - Vital Signs Vital signs: Vital Signs Temp Pulse Resp BP Pulse Ox 09/20/17 10:54 98.3 F 73 20 146/70 96 09/20/17 06:58 98.1 F 70 22 145/74 96 09/20/17 03:17 98.0 F 75 16 154/79 95 09/20/17 00:11 98.4 F 82 16 165/78 95 09/19/17 20:25 98.7 F 82 16 153/70 94 09/19/17 16:30 98.2 F 87 16 140/67 96 09/19/17 13:00 97.4 F L 18 128/58 09/19/17 12:50 125/55 09/19/17 12:35 133/64 09/19/17 12:20 124/54 09/19/17 12:05 116/55 09/19/17 11:50 111/55 09/19/17 11:35 113/59 09/19/17 11:20 122/57 09/19/17 11:05 117/55 Intake and Output 09/19/17 09/20/17 09/20/17 23:59 07:59 15:59 Intake Total 120 / 120 Output Total 600 / 600 300 / 300 Balance -600 / -600 -180 / -180 Intake: Oral 120 / 120 Output: Urine 600 / 600 300 / 300 Other: Meal Breakfast Percent of Meal Consumed 100% Stool Size Moderate Large Stool Consistency loose loose liquid Stool Characteristics Normal for Patient Stool Color Brown # Bowel Movements 1 1 Weight 128.4 kg Blood Glucose* 202 102 105 Patient Weight 09/20/17 23:59 Weight 128.4 kg - General Appearance General appearance: Present: well-developed, well-nourished EENT: Present: ATNC, mucous membranes moist, hearing intact, vision intact Neck: Present: supple Cardiology: Present: no edema, regular rate, regular rhythm Dialysis Vascular Access: Venous Catheter Gastrointestinal: Present: no guarding Neurologic: Present: alert and oriented x3 Musculoskeletal: Present: deformities (right leg amputation) Psychiatric: Present: mood/affect appropriate, cooperative - Lab 09/20/17 05:20 09/20/17 05:20 Most recent lab results ABG pH 7.46 pH Units (7.32-7.45) H 09/18/17 14:06 ABG pCO2 36 mmHg (35-45) 09/18/17 14:06 ABG pO2 62 mmHg (85-104) L 09/18/17 14:06 ABG HCO3 26 mEq/L (21-27) 09/18/17 14:06 ABG O2 Saturation 93 % (95-98) L 09/18/17 14:06 Calcium 7.9 mg/dL (8.6-10.8) L 09/20/17 05:20 Phosphorus 7.9 mg/dL (2.3-4.7) H 09/20/17 05:20 Magnesium 2.3 mg/dL (1.6-2.6) 09/15/17 04:45 Urine Creatinine 143 mg/dL 09/13/17 12:35 Urine Sodium 52.0 mEq/L 09/13/17 12:35 - VTE Documentation of Mechanical Device: Intermittent pneumatic compression device Consult Discharge Plan - Plan Referrals: Lia Helms, PAC [Physician Labor Commissioner] - 10/04/17 8:15 am Casey Monroy DO [Primary Care Provider] - 09/27/17 9:20 am (Please follow up as schedule...) <Trell Stoner - Last Filed: 09/26/17 06:00> Date of Encounter: 09/20/17 - Assessment and Plan (1) TITUS (acute kidney injury) Current Visit: Yes Status: Acute Objective - Vital Signs Vital signs: Vital Signs Temp Pulse Resp BP Pulse Ox 09/26/17 04:26 98.9 F 93 16 155/73 95 09/25/17 22:56 99.5 F 87 18 138/70 98 09/25/17 18:57 98.2 F 90 18 158/70 100 09/25/17 11:10 97.8 F 83 18 149/72 99 09/25/17 07:22 98.2 F 81 16 153/72 98 Intake and Output 09/25/17 09/25/17 09/26/17 15:59 23:59 07:59 Intake Total 800 / 800 100 / 100 Output Total 1140 / 1140 600 / 600 Balance -340 / -340 100 / 100 -600 / -600 Intake: IV Fluids 400 / 400 100 / 100 Zyvox Premix 600mg/300mL 600 mg 300 / 300 In 300 ml @ 150 mls/hr IVPB Q12HR [place] Rx#:[id number] Flagyl Premix 500 MG/100 ML 500 100 / 100 100 / 100 mg In 100 ml @ 100 mls/hr IVPB Q8H [facility], [facility]–1983 Rx#:[id number] Oral 400 / 400 Output: Urine 1140 / 1140 600 / 600 Other: Weight 121.472 kg Blood Glucose* 178 155 Patient Weight 09/26/17 23:59 Weight 121.472 kg - Lab 09/26/17 03:45 09/26/17 03:45 Most recent lab results ABG pH 7.46 pH Units (7.32-7.45) H 09/18/17 14:06 ABG pCO2 36 mmHg (35-45) 09/18/17 14:06 ABG pO2 62 mmHg (85-104) L 09/18/17 14:06 ABG HCO3 26 mEq/L (21-27) 09/18/17 14:06 ABG O2 Saturation 93 % (95-98) L 09/18/17 14:06 Calcium 8.7 mg/dL (8.6-10.8) 09/26/17 03:45 Phosphorus 7.9 mg/dL (2.3-4.7) H 09/20/17 05:20 Magnesium 2.3 mg/dL (1.6-2.6) 09/15/17 04:45 Urine Creatinine 143 mg/dL 09/13/17 12:35 Urine Sodium 52.0 mEq/L 09/13/17 12:35 - Attending Attestation I examined this patient and my medical decision-making was reviewed with the Resident Physician/ DECORATIVE ENGRAVER. I agree with the documented findings, disposition and treatment plan as described except to the extent set forth below. Pt seen and examined physical exam unchanged. SCr improved after HD down to 6. UOP improved but signs minimal sign of renal recovery. Will paln for permacth and subsequent discharge as soon as possible as HD can be continued outpatinet till renal recovery
[2017-09-20] MEDS: Levofloxacin 500 MG/100 ML 500 MG/100 ML BAG IVPB SCH (17:30)
[2017-09-20] MEDS: Melatonin 3 MG TABLET PO PRN (20:45)
[2017-09-20] MEDS ORDERED: Vancomycin 2,000 MG in D5% in Water 250 ML IVPB SCH (22:00)
[2017-09-20] MEDS ORDERED: Vancomycin 2,000 MG in D5% in Water 500 ML IVPB ONE (23:00)
[2017-09-21] MEDS: hydrALAZINE 25 MG TABLET PO SCH ×4 (01:16→23:18)
[2017-09-21 04:15] LABS: Eosinophils # 0.4 K/mcL (0.0-0.6); Hematocrit 25.5 % (37.5-50.1); Hemoglobin 8.3 g/dL (12.9-16.9); Mean Corpuscular HGB Conc 32.5 g/dL (31.6-35.5); Mean Corpuscular Volume 86.1 fL (83.0-100.0); Mean Platelet Volume 8.9 fL (9.4-12.4); Platelet Count 359 K/mcL (140-400); Red Blood Count 2.96 M/mcL (4.19-5.50); Red Cell Distribution Width 14.7 % (11.5-14.5)
[2017-09-21 04:22] LABS: INR 1.2; Prothrombin Time 13.2 Seconds (9.4-12.1)
[2017-09-21 05:00] LABS: Calcium 7.9 mg/dL (8.6-10.8); Monocytes # 1.7 K/mcL (0.0-1.3); Neutrophils # 13.3 K/mcL (1.6-8.9); Platelet Estimate Normal (Normal); Potassium 4.7 mEq/L (3.5-4.5); Reactive Lymphocytes Present (Not Present)
[2017-09-21 05:01] LABS: Poikilocytosis 1+ (Not Present)
[2017-09-21] MEDS: *HR* Heparin 5,000 UNIT/ML VIAL SQ SCH ×2 (06:06→17:44)
--- NOTE | 2017-09-21 06:50 | Internal Med Progress Note ---
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; Orthopedics on board, s/p irrigation, debridement, synovectomy and polyexchange on 09/12/17; local wound care and activity per Orthopedics; PT evaluation noted, recommend IP rehab; pediatric social worker on board; synovial fluid analysis shows high WBC with lymphocyte predominance, gram stain and culture negative; 2/2 blood cultures from 09/10 grew Strep mutans, sensitive to Levaquin; continue IV Levaquin; repeat blood cultures from 09/13 negative; 09/18- will repeat blood cultures today; right knee incision noted to be bleeding, Orthopedics to reevaluate; 09/19- d/w Orthopedics, plan as above; f/up blood cultures and continue local wound care with PAKO wraps; 09/20- WBC gradual elevated. Will broaden abx coverage with vancomycin and monitor labs. Currently afebrile and hemodynamically stable. Qualifiers: Septic arthritis location: knee Septic arthritis organism: due to unspecified organism Laterality: right Qualified Code(s): M00.9 - Pyogenic arthritis, unspecified (2) TITUS (acute kidney injury) Current Visit: Yes Status: Acute (3) Mantle cell lymphoma Current Visit: No Status: Acute Qualifiers: Lymphoma site: unspecified region Qualified Code(s): C83.10 - Mantle cell lymphoma, unspecified site (4) Diabetes mellitus Current Visit: Yes Status: Chronic Qualifiers: Diabetes mellitus type: type 2 Diabetes mellitus complication status: without complication Diabetes mellitus nursing home insulin use: without nursing home use Qualified Code(s): E11.9 - Type 2 diabetes mellitus without complications (5) HTN (hypertension) Current Visit: Yes Status: Chronic Qualifiers: Hypertension type: essential hypertension Qualified Code(s): I10 - Essential (primary) hypertension - Subjective Interval history: No acute events. - Constitutional Vitals: Temp Pulse Resp BP Pulse Ox 97.7 F 71 17 155/68 98 09/21/17 03:32 09/21/17 03:32 09/21/17 03:32 09/21/17 03:32 09/21/17 03:32 General appearance: Present: A&O X 3, morbidly obese, answers questions appropriately Exam: - Respiratory Respiratory exam: Present: CTAB. Absent: accessory muscle use, rales, rhonchi, wheezes - Cardiovascular Cardiovascular exam: Present: RRR, +S1, +S2. Absent: diastolic murmur, gallop, rubs, systolic murmur - GI/Abdominal GI/Abdominal exam: Present: normal bowel sounds, soft, no peritoneal signs. Absent: distended, tenderness - Extremities Exam Extremities exam: Present: pedal edema (right knee surgical incision with clean dry intact;), . Absent: calf tenderness, cyanotic Internal Medicine: Result - Labs CBC & Chem 7: 09/21/17 04:00 09/21/17 04:00 Labs: Short CBC 09/20/17 09/21/17 Range/Units 05:20 04:00 WBC 21.5 H (4.3-11.1) K/mcL Hgb 8.3 L (12.9-16.9) g/dL Hct 25.5 L (37.5-50.1) % Plt Count 359 (140-400) K/mcL Neutrophils # 12.7 H 13.3 H (1.6-8.9) K/mcL BMP 09/21/17 04:00 Sodium 136 Potassium 4.7 H Chloride 98 Carbon Dioxide 24 BUN 95 H D Creatinine 7.19 H Glucose 106 H Calcium 7.9 L - ABG Interpretation ABG results: ABG ABG pH 7.46 pH Units (7.32-7.45) H 09/18/17 14:06 ABG pCO2 36 mmHg (35-45) 09/18/17 14:06 ABG pO2 62 mmHg (85-104) L 09/18/17 14:06 ABG O2 Saturation 93 % (95-98) L 09/18/17 14:06 PT/INR, D-dimer PT 13.2 Seconds (9.4-12.1) H 09/21/17 04:00 - VTE Documentation of Mechanical Device: Intermittent pneumatic compression device Consult Discharge Plan - Plan Referrals: Casey Monroy DO [Primary Care Provider] - 09/27/17 9:20 am (Please follow up as schedule...)
--- NOTE | 2017-09-21 07:57 | Orthopedics Progress Note ---
Date of Encounter: 09/21/17 Time of Encounter: 07:56 Subjective Principal diagnosis: Right Knee - Poly Exchange, washout and closure 09/13/17 Interval history: Patient seen this morning doing better. States that the pain in the knee is improved. Right lower extremity Incision clean dry minimal bloody drainage at distal pole nothing could be expressed Dressing change today recommend twice a day dressing changes with 4 x 4 and Hans wrap. Continue nonoperative management assess progress consider resection arthroplasty only if patient does not improve presently patient is showing improvement Objective Vital signs: Vital Signs Temp Pulse Resp BP Pulse Ox 09/21/17 06:57 97.9 F 72 16 128/63 97 09/21/17 03:32 97.7 F 71 17 155/68 98 09/20/17 23:13 98.0 F 70 18 145/75 97 09/20/17 19:16 98.2 F 82 18 154/72 100 09/20/17 15:07 98.1 F 69 18 146/71 94 09/20/17 10:54 98.3 F 73 20 146/70 96 Intake and Output 09/20/17 09/20/17 09/21/17 15:59 23:59 07:59 Intake Total 120 / 120 0 / 0 Output Total 875 / 875 25 / 25 1050 / 1050 Balance -755 / -755 -25 / -25 -1050 / -1050 Intake: Oral 120 / 120 0 / 0 Output: Urine 875 / 875 25 / 25 1050 / 1050 Other: Meal Breakfast Percent of Meal Consumed 100% Stool Size Large Small Stool Consistency loose loose Stool Characteristics Normal for Patient Normal for Patient Stool Color Brown Brown # Bowel Movements 1 Weight 126.824 kg Blood Glucose* 145 177 105 Patient Weight 09/21/17 23:59 Weight 126.824 kg - Labs CBC & BMP: 09/21/17 04:00 09/21/17 04:00 Labs: Abnormal lab results WBC 21.5 K/mcL (4.3-11.1) H 09/21/17 04:00 RBC 2.96 M/mcL (4.19-5.50) L 09/21/17 04:00 Hgb 8.3 g/dL (12.9-16.9) L 09/21/17 04:00 Hct 25.5 % (37.5-50.1) L 09/21/17 04:00 RDW 14.7 % (11.5-14.5) H 09/21/17 04:00 MPV 8.9 fL (9.4-12.4) L 09/21/17 04:00 Immature Gran % 7.2 % (0-4) H 09/18/17 06:05 Neutrophils # 13.3 K/mcL (1.6-8.9) H 09/21/17 04:00 Lymphocytes # 6.0 K/mcL (0.6-4.6) H 09/21/17 04:00 Monocytes # 1.7 K/mcL (0.0-1.3) H 09/21/17 04:00 Nucleated RBCs/100 WBC 0.1 /100 WBC (0) H 09/18/17 06:05 Reactive Lymphocytes Present (Not Present) A 09/21/17 04:00 Toxic Granulation Present (Not Present) A 09/20/17 05:20 Hypochromasia Present (Not Present) A 09/20/17 05:20 Poikilocytosis 1+ (Not Present) A 09/21/17 04:00 Anisocytosis 1+ (Not Present) A 09/17/17 05:08 ESR 112 mm/hr (0-10) H 09/19/17 08:58 PT 13.2 Seconds (9.4-12.1) H 09/21/17 04:00 APTT 23.5 Seconds (26.0-36.0) L 09/15/17 04:45 ABG pH 7.46 pH Units (7.32-7.45) H 09/18/17 14:06 ABG pO2 62 mmHg (85-104) L 09/18/17 14:06 ABG Total CO2 27 mEq/L (20-26) H 09/18/17 14:06 ABG O2 Saturation 93 % (95-98) L 09/18/17 14:06 VBG pH 7.19 pH Units (7.32-7.42) L* 09/13/17 01:54 VBG pCO2 56 mmHg (41-51) H 09/13/17 01:54 VBG pO2 86 mmHg (25-50) H 09/13/17 01:54 Potassium 4.7 mEq/L (3.5-4.5) H 09/21/17 04:00 BUN 95 mg/dL (8-26) H D 09/21/17 04:00 Creatinine 7.19 mg/dL (0.72-1.25) H 09/21/17 04:00 Est GFR ( Amer) 9 (> 60) L 09/21/17 04:00 Est GFR (Non-Af Amer) 8 (> 60) L 09/21/17 04:00 Glucose 106 mg/dL (70-99) H 09/21/17 04:00 POC Glucose 177 (58-89) H 09/20/17 19:20 Hemoglobin A1c 8.8 % (-5.6) H 09/13/17 01:37 Calculated Osmolality 312 (280-300) H 09/21/17 04:00 Uric Acid 9.0 mg/dL (3.5-7.2) H 09/13/17 12:13 Calcium 7.9 mg/dL (8.6-10.8) L 09/21/17 04:00 Ionized Calcium 1.11 mmol/L (1.15-1.35) L 09/15/17 07:54 Phosphorus 7.9 mg/dL (2.3-4.7) H 09/20/17 05:20 Iron 23 mcg/dL (65-175) L 09/19/17 04:35 % Saturation 12 % (20-55) L 09/19/17 04:35 Transferrin 132 mg/dL (174-364) L 09/19/17 04:35 Ferritin 442 ng/ml (22-275) H 09/19/17 04:35 Alkaline Phosphatase 189 Units/L (38-126) H 09/19/17 06:50 C-Reactive Protein 170 mg/L (Less than 5) H 09/19/17 08:58 Serum Total Protein 5.3 g/dL (6.0-8.3) L 09/19/17 06:50 Albumin 1.9 g/dL (3.5-5.0) L 09/20/17 05:20 Albumin/Globulin Ratio 0.5 (1.1-2.2) L 09/19/17 06:50 Vitamin B12 > 2000 pg/mL (213-816) H 09/19/17 04:35 Synovial Appearance Cloudy (Clear-Hazy) A 09/10/17 12:48 Synovial RBC 0.196 M/mcl (0.000-0.002) H 09/10/17 12:48 Synovial Tot Nuc Cell > 475764 TNC/mcL (0-200) H 09/10/17 12:48 Streptococcus sp PCR DETECTED (Not Detect) A 09/10/17 12:22 - VTE Documentation of Mechanical Device: Intermittent pneumatic compression device Consult Discharge Plan - Plan Referrals: Casey Monroy DO [Primary Care Provider] - 09/27/17 9:20 am (Please follow up as schedule...)
[2017-09-21] MEDS ORDERED: 0.9 % Sodium Chloride 250 ML IVC PRN (08:04)
[2017-09-21] MEDS ORDERED: *HR* Heparin 10,000 UNIT/10 ML VIAL IV PRN (08:04)
[2017-09-21] MEDS ORDERED: Aminoglycoside Consult 1 EACH MC ONE (08:12)
[2017-09-21] MEDS: Insulin LISPRO 300 UNITS/3 ML VIAL SQ SCH ×4 (08:13→20:28)
[2017-09-21] MEDS: Calcium Acetate 667 MG CAPSULE PO SCH ×3 (08:42→17:43)
[2017-09-21] MEDS: Sennosides/Docusate Sodium TABLET PO SCH ×2 (08:54→20:33)
[2017-09-21] MEDS: Aspirin Enteric Coated 81 MG Tablet PO SCH (08:54)
[2017-09-21] MEDS ORDERED: 0.9 % Sodium Chloride 2,000 ML ONE (09:23)
[2017-09-21] MEDS: *HR* HYDROcodone/Acet 5/325 mg TABLET PO PRN ×2 (09:40→19:17)
[2017-09-21] MEDS: *HR* HYDROmorphone (PF) 1 MG/ML SYRINGE IVP PRN (14:12)
[2017-09-21 14:25] LABS: Basophils # 0.1 K/mcL (0.0-0.2); Basophils % 0.5 %; Eosinophils # 0.3 K/mcL (0.0-0.6); Eosinophils % 1.7 %; Hematocrit 26.6 % (37.5-50.1); Hemoglobin 8.8 g/dL (12.9-16.9); Immature Granulocytes % 4.6 % (0-4); Immature Platelets 1.4 % (1.1-6.1); Lymphocytes # 3.5 K/mcL (0.6-4.6); Mean Corpuscular HGB Conc 33.1 g/dL (31.6-35.5); Mean Corpuscular Hemoglobin 27.9 pg (28.0-33.3); Mean Corpuscular Volume 84.4 fL (83.0-100.0); Mean Platelet Volume 8.6 fL (9.4-12.4); Monocytes # 1.3 K/mcL (0.0-1.3); Neutrophils # 12.4 K/mcL (1.6-8.9); Platelet Count 394 K/mcL (140-400); Red Blood Count 3.15 M/mcL (4.19-5.50); Red Cell Distribution Width 14.6 % (11.5-14.5); Segmented Neutrophils % 67.2 %
[2017-09-21] MEDS: Cefepime HCl 2,000 MG in Water for inj. (sterile) 20 ML IVP SCH (15:46)
[2017-09-21] MEDS: MetroNIDAZOLE 500 MG/100 ML 500 MG/100 ML BAG IVPB SCH ×2 (15:47→23:18)
--- NOTE | 2017-09-21 16:13 | Nephrology Progress Note ---
Date of Encounter: 09/21/17 Time of Encounter: 12:00 - Assessment and Plan (1) TITUS (acute kidney injury) Current Visit: Yes Status: Acute SCr worse again after last HD 2 days ago, hence no signs of INSPECTOR AIDE yet Will obtain permcath when able for dischrage Outpatient HD already arranged in [place] (2) Hyperkalemia Current Visit: Yes Status: Acute Mild at 4.7, should improvement with HD Renal diet advised Subjective Principal diagnosis: Right Knee - Poly Exchange, washout and closure 09/13/17 Interval history: Pt seen and examined on HD. Permcath aborted due to elevated WBCs Objective - Vital Signs Vital signs: Vital Signs Temp Pulse Resp BP Pulse Ox 09/21/17 13:10 98.1 F 15 141/60 09/21/17 13:05 132/66 09/21/17 12:35 131/65 09/21/17 12:05 135/66 09/21/17 11:35 135/71 09/21/17 11:05 125/66 09/21/17 10:35 138/61 09/21/17 10:05 133/70 09/21/17 09:35 152/74 09/21/17 09:05 97.8 F 15 145/70 09/21/17 06:57 97.9 F 72 16 128/63 97 09/21/17 03:32 97.7 F 71 17 155/68 98 09/20/17 23:13 98.0 F 70 18 145/75 97 09/20/17 19:16 98.2 F 82 18 154/72 100 Intake and Output 09/21/17 09/21/17 09/21/17 07:59 15:59 23:59 Intake Total 600 / 600 Output Total 1050 / 1050 2600 / 2600 Balance -1050 / -1050 -2000 / -1999 Intake: Oral 0 / 0 Intake, Rinseback and Flushes 600 / 600 Output: Urine 1050 / 1050 0 / 0 Total Dialysis (HD) Output 2600 / 2600 Other: Weight 126.824 kg Blood Glucose* 105 143 Hemodialysis Net Fluid Removed 2000 (mL) Patient Weight 09/21/17 23:59 Weight 126.824 kg - Lab 09/21/17 14:17 09/21/17 04:00 Most recent lab results ABG pH 7.46 pH Units (7.32-7.45) H 09/18/17 14:06 ABG pCO2 36 mmHg (35-45) 09/18/17 14:06 ABG pO2 62 mmHg (85-104) L 09/18/17 14:06 ABG HCO3 26 mEq/L (21-27) 09/18/17 14:06 ABG O2 Saturation 93 % (95-98) L 09/18/17 14:06 Calcium 7.9 mg/dL (8.6-10.8) L 09/21/17 04:00 Phosphorus 7.9 mg/dL (2.3-4.7) H 09/20/17 05:20 Magnesium 2.3 mg/dL (1.6-2.6) 09/15/17 04:45 Urine Creatinine 143 mg/dL 09/13/17 12:35 Urine Sodium 52.0 mEq/L 09/13/17 12:35 - VTE Documentation of Mechanical Device: Intermittent pneumatic compression device Consult Discharge Plan - Plan Referrals: Casey Monroy DO [Primary Care Provider] - 09/27/17 9:20 am (Please follow up as schedule...)
[2017-09-21] MEDS: Melatonin 3 MG TABLET PO PRN (19:17)
--- NOTE | 2017-09-22 01:03 | Internal Med Progress Note ---
Date of Encounter: 09/21/17 Time of Encounter: 13:00 - Assessment and plan (1) Septic joint Current Visit: Yes Status: Acute Assessment and plan: possible right prosthetic knee joint infection; Orthopedics on board, s/p irrigation, debridement, synovectomy and polyexchange on 09/12/17; local wound care and activity per Orthopedics; PT evaluation noted, recommend IP rehab; social media marketing manager on board; synovial fluid analysis shows high WBC with lymphocyte predominance, gram stain and culture negative; 2/2 blood cultures from 09/10 grew Strep mutans, sensitive to Levaquin; continue IV Levaquin; repeat blood cultures from 09/13 negative; 09/18- will repeat blood cultures today; right knee incision noted to be bleeding, Orthopedics to reevaluate; 09/19- d/w Orthopedics, plan as above; f/up blood cultures and continue local wound care with PAKO wraps; 09/20- WBC gradual elevated. Will broaden abx coverage received a dose of vancomycin, abx were changed. Currently afebrile and hemodynamically stable. 09/21- IR permcath placement cancelled today because of leukocytosis. Started Cefepepime/Flagyl with Levaquin will monitor for improvement. Currently patient is afebrile, non-toxic appearing, and hemodynamically stable. Follow up blood cultures from 09/20 Qualifiers: Septic arthritis location: knee Septic arthritis organism: due to unspecified organism Laterality: right Qualified Code(s): M00.9 - Pyogenic arthritis, unspecified (2) TITUS (acute kidney injury) Current Visit: Yes Status: Acute Assessment and plan: likely ATN in the setting of severe sepsis, antibiotic use, hypotension; was on diuretic/ACEI/NSAID at home; Nephrology on board; patient has been on CVVHDF in the ICU, now switched to temporary HD; serum creatinine and urine output worsening; continue to monitor; 09/21 renal function worsening. antibiotic coverage needed broadened Did receive dose of Vancomycin but was discontinued and alternative antibiotics given. (3) Mantle cell lymphoma Current Visit: No Status: Acute Qualifiers: Lymphoma site: unspecified region Qualified Code(s): C83.10 - Mantle cell lymphoma, unspecified site (4) Diabetes mellitus Current Visit: Yes Status: Chronic Assessment and plan: blood sugars noted to be well-controlled; continue Accucheck blood glucose monitoring with sliding scale insulin; diabetic diet; HbA1C 8.8%; Qualifiers: Diabetes mellitus type: type 2 Diabetes mellitus complication status: without complication Diabetes mellitus penitentiary insulin use: without penitentiary use Qualified Code(s): E11.9 - Type 2 diabetes mellitus without complications (5) HTN (hypertension) Current Visit: Yes Status: Chronic Assessment and plan: BP better controlled; continue PO Hydralazine, continue beta rae. will use PRN IV Hydralazine for appropriate control; ACEI on hold; Qualifiers: Hypertension type: essential hypertension Qualified Code(s): I10 - Essential (primary) hypertension - Subjective Interval history: No acute events. - Constitutional Vitals: Temp Pulse Resp BP Pulse Ox 98.2 F 66 16 166/82 98 09/21/17 23:12 09/21/17 23:12 09/21/17 23:12 09/21/17 23:12 09/21/17 23:12 General appearance: Present: A&O X 3, morbidly obese, answers questions appropriately Exam: - Respiratory Respiratory exam: Present: CTAB. Absent: accessory muscle use, rales, rhonchi, wheezes - Cardiovascular Cardiovascular exam: Present: RRR, +S1, +S2. Absent: diastolic murmur, gallop, rubs, systolic murmur - GI/Abdominal GI/Abdominal exam: Present: normal bowel sounds, soft, no peritoneal signs. Absent: distended, tenderness - Extremities Exam Extremities exam: Present: pedal edema (right knee surgical incision with clean dry intact;), . Absent: calf tenderness, cyanotic Internal Medicine: Result - Labs CBC & Chem 7: 09/21/17 14:17 09/21/17 04:00 Labs: Short CBC 09/21/17 09/21/17 Range/Units 04:00 14: WBC 21.5 H 18.4 H (4.3-11.1) K/mcL Hgb 8.3 L 8.8 L (12.9-16.9) g/dL Hct 25.5 L 26.6 L (37.5-50.1) % Plt Count 359 394 (140-400) K/mcL Neutrophils # 13.3 H 12.4 H (1.6-8.9) K/mcL BMP 09/21/17 04:00 Sodium 136 Potassium 4.7 H Chloride 98 Carbon Dioxide 24 BUN 95 H D Creatinine 7.19 H Glucose 106 H Calcium 7.9 L - ABG Interpretation ABG results: ABG ABG pH 7.46 pH Units (7.32-7.45) H 09/18/17 14:06 ABG pCO2 36 mmHg (35-45) 09/18/17 14:06 ABG pO2 62 mmHg (85-104) L 09/18/17 14:06 ABG O2 Saturation 93 % (95-98) L 09/18/17 14:06 PT/INR, D-dimer PT 13.2 Seconds (9.4-12.1) H 09/21/17 04:00 - VTE Documentation of Mechanical Device: Intermittent pneumatic compression device Consult Discharge Plan - Plan Referrals: Casey Monroy DO [Primary Care Provider] - 09/27/17 9:20 am (Please follow up as schedule...)
[2017-09-22 05:53] LABS: Basophils # 0.1 K/mcL (0.0-0.2); Basophils % 0.5 %; Eosinophils # 0.3 K/mcL (0.0-0.6); Eosinophils % 1.8 %; Hemoglobin 8.3 g/dL (12.9-16.9); Immature Granulocytes % 4.2 % (0-4); Lymphocytes # 4.4 K/mcL (0.6-4.6); Lymphocytes % 23.7 %; Mean Corpuscular HGB Conc 31.9 g/dL (31.6-35.5); Mean Corpuscular Hemoglobin 27.5 pg (28.0-33.3); Mean Corpuscular Volume 86.1 fL (83.0-100.0); Mean Platelet Volume 8.8 fL (9.4-12.4); Monocytes # 1.5 K/mcL (0.0-1.3); Monocytes % 8.1 %; Neutrophils # 11.3 K/mcL (1.6-8.9); Platelet Count 362 K/mcL (140-400); Red Blood Count 3.02 M/mcL (4.19-5.50); Red Cell Distribution Width 14.5 % (11.5-14.5); Segmented Neutrophils % 61.7 %
[2017-09-22 06:05] LABS: Calcium 7.9 mg/dL (8.6-10.8); Potassium 4.1 mEq/L (3.5-4.5)
[2017-09-22] MEDS: *HR* Heparin 5,000 UNIT/ML VIAL SQ SCH ×2 (06:36→17:04)
[2017-09-22] MEDS: MetroNIDAZOLE 500 MG/100 ML 500 MG/100 ML BAG IVPB SCH ×3 (06:36→22:48)
[2017-09-22] MEDS: Aspirin Enteric Coated 81 MG Tablet PO SCH (09:04)
[2017-09-22] MEDS: Insulin LISPRO 300 UNITS/3 ML VIAL SQ SCH ×4 (09:04→22:45)
[2017-09-22] MEDS: hydrALAZINE 25 MG TABLET PO SCH ×2 (09:04→16:23)
[2017-09-22] MEDS: Calcium Acetate 667 MG CAPSULE PO SCH ×3 (09:05→17:04)
[2017-09-22] MEDS: Sennosides/Docusate Sodium TABLET PO SCH ×2 (09:05→20:02)
[2017-09-22] MEDS: *HR* HYDROmorphone (PF) 1 MG/ML SYRINGE IVP PRN ×3 (09:11→20:02)
--- NOTE | 2017-09-22 10:45 | Orthopedics Progress Note ---
Date of Encounter: 09/22/17 Time of Encounter: 10:43 Subjective Principal diagnosis: Right Knee - Poly Exchange, washout and closure 09/13/17 Interval history: S: Pain improving in right knee. Pain is well-controlled, denies N/V, denies subjective F/C/NS O: Incision with minimal bloody drainage at distal pole, no purulent drainage Minimal surrounding erythema Range of motion deferred Distally neurovascularly intact A/P: Status post right knee I&D and poly-exchange Continue twice a day dressing changes No plans for repeat surgery this hospitalization as long as he continues clinical improvement Antibiotics per medical service Objective Vital signs: Vital Signs Temp Pulse Resp BP Pulse Ox 09/22/17 07:29 98.1 F 67 16 149/76 93 09/22/17 04:19 98.0 F 74 16 146/64 97 09/21/17 23:12 98.2 F 66 16 166/82 98 09/21/17 18:54 98.6 F 84 16 132/67 94 09/21/17 17:26 98.4 F 77 16 145/69 95 09/21/17 13:10 98.1 F 15 141/60 09/21/17 13:05 132/66 09/21/17 12:35 131/65 09/21/17 12:05 135/66 09/21/17 11:35 135/71 09/21/17 11:05 125/66 Intake and Output 09/21/17 09/22/17 09/22/17 23:59 07:59 15:59 Intake Total 340 / 340 600 / 600 120 / 120 Output Total 500 / 500 1300 / 1300 Balance -160 / -160 -700 / -700 120 / 120 Intake: IV Fluids 100 / 100 200 / 200 Flagyl Premix 500 MG/100 ML 500 100 / 100 200 / 200 mg In 100 ml @ 100 mls/hr IVPB Q8H [facility] Rx#:[id number] Oral 240 / 240 400 / 400 120 / 120 Output: Urine 500 / 500 1300 / 1300 Other: Meal Dinner Breakfast Percent of Meal Consumed 75% 70% Blood Glucose* 154 104 - Labs CBC & BMP: 09/22/17 05:45 09/22/17 05:45 Labs: Abnormal lab results WBC 18.4 K/mcL (4.3-11.1) H 09/22/17 05:45 RBC 3.02 M/mcL (4.19-5.50) L 09/22/17 05:45 Hgb 8.3 g/dL (12.9-16.9) L 09/22/17 05:45 Hct 26.0 % (37.5-50.1) L 09/22/17 05:45 MCH 27.5 pg (28.0-33.3) L 09/22/17 05:45 MPV 8.8 fL (9.4-12.4) L 09/22/17 05:45 Immature Gran % 4.2 % (0-4) H 09/22/17 05:45 Neutrophils # 11.3 K/mcL (1.6-8.9) H 09/22/17 05:45 Monocytes # 1.5 K/mcL (0.0-1.3) H 09/22/17 05:45 Nucleated RBCs/100 WBC 0.1 /100 WBC (0) H 09/18/17 06:05 Reactive Lymphocytes Present (Not Present) A 09/21/17 04:00 Toxic Granulation Present (Not Present) A 09/20/17 05:20 Hypochromasia Present (Not Present) A 09/20/17 05:20 Poikilocytosis 1+ (Not Present) A 09/21/17 04:00 Anisocytosis 1+ (Not Present) A 09/17/17 05:08 ESR 112 mm/hr (0-10) H 09/19/17 08:58 PT 13.2 Seconds (9.4-12.1) H 09/21/17 04:00 APTT 23.5 Seconds (26.0-36.0) L 09/15/17 04:45 ABG pH 7.46 pH Units (7.32-7.45) H 09/18/17 14:06 ABG pO2 62 mmHg (85-104) L 09/18/17 14:06 ABG Total CO2 27 mEq/L (20-26) H 09/18/17 14:06 ABG O2 Saturation 93 % (95-98) L 09/18/17 14:06 VBG pH 7.19 pH Units (7.32-7.42) L* 09/13/17 01:54 VBG pCO2 56 mmHg (41-51) H 09/13/17 01:54 VBG pO2 86 mmHg (25-50) H 09/13/17 01:54 BUN 54 mg/dL (8-26) H D 09/22/17 05:45 Creatinine 5.00 mg/dL (0.72-1.25) H 09/22/17 05:45 Est GFR ( Amer) 14 (> 60) L 09/22/17 05:45 Est GFR (Non-Af Amer) 12 (> 60) L 09/22/17 05:45 Glucose 113 mg/dL (70-99) H 09/22/17 05:45 POC Glucose 143 (58-89) H 09/21/17 11:47 Hemoglobin A1c 8.8 % (-5.6) H 09/13/17 01:37 Calculated Osmolality 306 (280-300) H 09/22/17 05:45 Uric Acid 9.0 mg/dL (3.5-7.2) H 09/13/17 12:13 Calcium 7.9 mg/dL (8.6-10.8) L 09/22/17 05:45 Ionized Calcium 1.11 mmol/L (1.15-1.35) L 09/15/17 07:54 Phosphorus 7.9 mg/dL (2.3-4.7) H 09/20/17 05:20 Iron 23 mcg/dL (65-175) L 09/19/17 04:35 % Saturation 12 % (20-55) L 09/19/17 04:35 Transferrin 132 mg/dL (174-364) L 09/19/17 04:35 Ferritin 442 ng/ml (22-275) H 09/19/17 04:35 Alkaline Phosphatase 189 Units/L (38-126) H 09/19/17 06:50 C-Reactive Protein 170 mg/L (Less than 5) H 09/19/17 08:58 Serum Total Protein 5.3 g/dL (6.0-8.3) L 09/19/17 06:50 Albumin 1.9 g/dL (3.5-5.0) L 09/20/17 05:20 Albumin/Globulin Ratio 0.5 (1.1-2.2) L 09/19/17 06:50 Vitamin B12 > 2000 pg/mL (213-816) H 09/19/17 04:35 Synovial Appearance Cloudy (Clear-Hazy) A 09/10/17 12:48 Synovial RBC 0.196 M/mcl (0.000-0.002) H 09/10/17 12:48 Synovial Tot Nuc Cell > 388243 TNC/mcL (0-200) H 09/10/17 12:48 Streptococcus sp PCR DETECTED (Not Detect) A 09/10/17 12:22 - VTE Documentation of Mechanical Device: Intermittent pneumatic compression device Consult Discharge Plan - Plan Referrals: Casey Monroy DO [Primary Care Provider] - 09/27/17 9:20 am (Please follow up as schedule...)
[2017-09-22] MEDS: Cefepime HCl 2,000 MG in Water for inj. (sterile) 20 ML IVP SCH (15:09)
--- NOTE | 2017-09-22 15:20 | Nephrology Progress Note ---
Date of Encounter: 09/22/17 - Assessment and Plan (1) TITUS (acute kidney injury) Current Visit: Yes Status: Acute SCr worse again after last HD 2 days ago, hence no signs of LEAN SIX SIGMA BLACK BELT yet Will obtain permcath when able for dischrage Outpatient HD already arranged in [place] (2) Hyperkalemia Current Visit: Yes Status: Acute Mild at 4.7, should improvement with HD Renal diet advised Subjective Principal diagnosis: Right Knee - Poly Exchange, washout and closure 09/13/17 Interval history: Pt seen and examined with at bedside. No complaints. concerned as to whether rehab was needed on discharge Objective - Vital Signs Vital signs: Vital Signs Temp Pulse Resp BP Pulse Ox 09/22/17 10:42 98.0 F 76 16 129/65 96 09/22/17 07:29 98.1 F 67 16 149/76 93 09/22/17 04:19 98.0 F 74 16 146/64 97 09/21/17 23:12 98.2 F 66 16 166/82 98 09/21/17 18:54 98.6 F 84 16 132/67 94 09/21/17 17:26 98.4 F 77 16 145/69 95 Intake and Output 09/21/17 09/22/17 09/22/17 23:59 07:59 15:59 Intake Total 340 / 340 600 / 600 240 / 240 Output Total 500 / 500 1300 / 1300 Balance -160 / -160 -700 / -700 240 / 240 Intake: IV Fluids 100 / 100 200 / 200 120 / 120 Maxipime 2,000 MG In Water for 20 / 20 inj. (sterile) 20 ML @ 300 mls/ hr IVP Q24H [facility] Rx#:[id number] Flagyl Premix 500 MG/100 ML 500 100 / 100 200 / 200 100 / 100 mg In 100 ml @ 100 mls/hr IVPB Q8H [facility] Rx#:[id number] Oral 240 / 240 400 / 400 120 / 120 Output: Urine 500 / 500 1300 / 1300 Other: Meal Dinner Breakfast Percent of Meal Consumed 75% 70% Stool Size Large Stool Consistency liquid Stool Color Brown Green # Bowel Movement Diapers 1 Blood Glucose* 154 104 157 - Lab 09/22/17 05:45 09/22/17 05:45 Most recent lab results ABG pH 7.46 pH Units (7.32-7.45) H 11/19/17 14:06 ABG pCO2 36 mmHg (35-45) 09/18/17 14:06 ABG pO2 62 mmHg (85-104) L 09/18/17 14:06 ABG HCO3 26 mEq/L (21-27) 09/18/17 14:06 ABG O2 Saturation 93 % (95-98) L 09/18/17 14:06 Calcium 7.9 mg/dL (8.6-10.8) L 09/22/17 05:45 Phosphorus 7.9 mg/dL (2.3-4.7) H 09/20/17 05:20 Magnesium 2.3 mg/dL (1.6-2.6) 09/15/17 04:45 Urine Creatinine 143 mg/dL 09/13/17 12:35 Urine Sodium 52.0 mEq/L 09/13/17 12:35 - VTE Documentation of Mechanical Device: Intermittent pneumatic compression device Consult Discharge Plan - Plan Referrals: Casey Monroy DO [Primary Care Provider] - 09/27/17 9:20 am (Please follow up as schedule...)
[2017-09-22] MEDS: Levofloxacin 500 MG/100 ML 500 MG/100 ML BAG IVPB SCH (17:04)
[2017-09-22] MEDS: Melatonin 3 MG TABLET PO PRN (20:02)
[2017-09-23] MEDS: hydrALAZINE 25 MG TABLET PO SCH ×3 (00:37→15:49)
--- NOTE | 2017-09-23 01:20 | Internal Med Progress Note ---
Date of Encounter: 09/22/17 Time of Encounter: 16:18 - Assessment and plan (1) Septic joint Current Visit: Yes Status: Acute Assessment and plan: possible right prosthetic knee joint infection; Orthopedics on board, s/p irrigation, debridement, synovectomy and polyexchange on 09/12/17; local wound care and activity per Orthopedics; PT evaluation noted, recommend IP rehab; hospital social worker on board; synovial fluid analysis shows high WBC with lymphocyte predominance, gram stain and culture negative; 2/2 blood cultures from 09/10 grew Strep mutans, sensitive to Levaquin; continue IV Levaquin; repeat blood cultures from 09/13 negative; 09/18- will repeat blood cultures today; right knee incision noted to be bleeding, Orthopedics to reevaluate; 09/19- d/w Orthopedics, plan as above; f/up blood cultures and continue local wound care with PAKO wraps; 09/20- WBC gradual elevated. Will broaden abx coverage received a dose of vancomycin, abx were changed. Currently afebrile and hemodynamically stable. 09/21- IR permcath placement cancelled today because of leukocytosis. Started Cefepepime/Flagyl with Levaquin 09/22 - WBC gradual improvement. No indication for temp dialysis cath at this current moment now that renal function showing improvement. will monitor for improvement. Currently patient is afebrile, non-toxic appearing, and hemodynamically stable. Check CBC for AM Follow up blood cultures from 09/20 Qualifiers: Septic arthritis location: knee Septic arthritis organism: due to unspecified organism Laterality: right Qualified Code(s): M00.9 - Pyogenic arthritis, unspecified (2) TITUS (acute kidney injury) Current Visit: Yes Status: Acute Assessment and plan: likely ATN in the setting of severe sepsis, antibiotic use, hypotension; was on diuretic/ACEI/NSAID at home; Nephrology on board; patient closely monitored, recommendations appreciated. 09/21 renal function worsening. antibiotic coverage needed broadened Did receive dose of Vancomycin but was discontinued and alternative antibiotics given. 09/22 renal function improved, temp dialysis cath insertion not needed at this time. (3) Mantle cell lymphoma Current Visit: No Status: Acute Qualifiers: Lymphoma site: unspecified region Qualified Code(s): C83.10 - Mantle cell lymphoma, unspecified site (4) Diabetes mellitus Current Visit: Yes Status: Chronic Assessment and plan: blood sugars noted to be well-controlled; continue Accucheck blood glucose monitoring with sliding scale insulin; diabetic diet; HbA1C 8.8%; Qualifiers: Diabetes mellitus type: type 2 Diabetes mellitus complication status: without complication Diabetes mellitus tank terminal gauger insulin use: without tank terminal gauger use Qualified Code(s): E11.9 - Type 2 diabetes mellitus without complications (5) HTN (hypertension) Current Visit: Yes Status: Chronic Assessment and plan: BP better controlled; continue PO Hydralazine, continue beta rae. will use PRN IV Hydralazine for appropriate control; ACEI on hold; Qualifiers: Hypertension type: essential hypertension Qualified Code(s): I10 - Essential (primary) hypertension - Subjective Interval history: No acute events. - Constitutional Vitals: Temp Pulse Resp BP Pulse Ox 98.3 F 75 17 101/69 95 09/22/17 23:43 09/22/17 23:43 09/22/17 23:43 09/22/17 23:43 09/22/17 23:43 General appearance: Present: A&O X 3, morbidly obese, answers questions appropriately Exam: - Respiratory Respiratory exam: Present: CTAB. Absent: accessory muscle use, rales, rhonchi, wheezes - Cardiovascular Cardiovascular exam: Present: RRR, +S1, +S2. Absent: diastolic murmur, gallop, rubs, systolic murmur - GI/Abdominal GI/Abdominal exam: Present: normal bowel sounds, soft, no peritoneal signs. Absent: distended, tenderness - Extremities Exam Extremities exam: Present: pedal edema (right knee surgical incision with clean dry intact;), . Absent: calf tenderness, cyanotic Internal Medicine: Result - Labs CBC & Chem 7: 09/22/17 05:45 09/22/17 05:45 Labs: Short CBC 09/22/17 Range/Units 05:45 WBC 18.4 H (4.3-11.1) K/mcL Hgb 8.3 L (12.9-16.9) g/dL Hct 26.0 L (37.5-50.1) % Plt Count 362 (140-400) K/mcL Neutrophils # 11.3 H (1.6-8.9) K/mcL BMP 09/22/17 05:45 Sodium 140 Potassium 4.1 Chloride 100 Carbon Dioxide 29 BUN 54 H D Creatinine 5.00 H Glucose 113 H Calcium 7.9 L - ABG Interpretation ABG results: ABG ABG pH 7.46 pH Units (7.32-7.45) H 09/18/17 14:06 ABG pCO2 36 mmHg (35-45) 09/18/17 14:06 ABG pO2 62 mmHg (85-104) L 09/18/17 14:06 ABG O2 Saturation 93 % (95-98) L 09/18/17 14:06 PT/INR, D-dimer PT 13.2 Seconds (9.4-12.1) H 09/21/17 04:00 - VTE Documentation of Mechanical Device: Intermittent pneumatic compression device Consult Discharge Plan - Plan Referrals: Casey Monroy DO [Primary Care Provider] - 09/27/17 9:20 am (Please follow up as schedule...)
[2017-09-23 05:21] LABS: Basophils # 0.1 K/mcL (0.0-0.2); Basophils % 0.7 %; Eosinophils # 0.4 K/mcL (0.0-0.6); Hematocrit 26.8 % (37.5-50.1); Hemoglobin 8.4 g/dL (12.9-16.9); Immature Platelets 0.9 % (1.1-6.1); Lymphocytes # 4.5 K/mcL (0.6-4.6); Lymphocytes % 24.5 %; Mean Corpuscular HGB Conc 31.3 g/dL (31.6-35.5); Mean Corpuscular Hemoglobin 27.6 pg (28.0-33.3); Mean Corpuscular Volume 88.2 fL (83.0-100.0); Mean Platelet Volume 8.8 fL (9.4-12.4); Monocytes # 1.5 K/mcL (0.0-1.3); Monocytes % 8.2 %; Neutrophils # 11.3 K/mcL (1.6-8.9); Platelet Count 487 K/mcL (140-400); Red Blood Count 3.04 M/mcL (4.19-5.50); Red Cell Distribution Width 14.6 % (11.5-14.5); Segmented Neutrophils % 61.6 %
[2017-09-23 05:33] LABS: Potassium 4.7 mEq/L (3.5-4.5)
--- NOTE | 2017-09-23 07:27 | Orthopedics Progress Note ---
Date of Encounter: 09/23/17 Time of Encounter: 07:40 Subjective Principal diagnosis: Right Knee - Poly Exchange, washout and closure 09/13/17 Interval history: S: Patient seen this morning doing better. States that the pain in the knee is improved and controlled. He is asking about plan for the knee O: Right lower extremity Incision intact clean dry no drainage. nothing could be expressed. Dressing is 4 x 4, ABD, and Hans wrap. Continue with twice daily dressing changes. Afebrile, vital signs stable. Nontender knee to palpation. No calf tenderness to palpation. Neurovascularly intact bilaterally. A/P: Continue nonoperative management assess progress consider resection arthroplasty only if patient does not improve presently patient is showing improvement Discussed at length with patient that as long as he medically stabilizes we will plan to continue nonoperative treatment. Spouse not at bedside for discussion. Encouraged patient to reach out to our office with any questions. Patient has follow up with [facility] scheduled for continued outpatient monitoring. Objective Vital signs: Vital Signs Temp Pulse Resp BP Pulse Ox 09/23/17 04:45 97.9 F 75 18 157/77 95 09/22/17 23:43 98.3 F 75 17 101/69 95 09/22/17 18:59 98.5 F 83 18 137/79 97 09/22/17 16:24 98.5 F 85 16 128/57 95 09/22/17 10:42 98.0 F 76 16 129/65 96 09/22/17 07:29 98.1 F 67 16 149/76 93 Intake and Output 09/22/17 09/22/17 09/23/17 15:59 23:59 07:59 Intake Total 240 / 240 360 / 360 0 / 0 Output Total 1150 / 1150 0 / 0 Balance 240 / 240 -790 / -790 0 / 0 Intake: IV Fluids 120 / 120 120 / 120 Maxipime 2,000 MG In Water for 20 20 20 / 20 inj. (sterile) 20 ML @ 300 mls/ hr IVP Q24H [facility] Rx#:[id number] Levaquin Premix 500mg/100mL 500 100 / 100 mg In 100 ml @ 100 mls/hr IVPB Q48H [facility] Rx#:[id number] Flagyl Premix 500 MG/100 ML 500 100 / 100 mg In 100 ml @ 100 mls/hr IVPB Q8H [facility] Rx#:[id number] Oral 120 / 120 240 / 240 0 / 0 Output: Urine 1150 / 1150 0 / 0 Other: Meal Breakfast ice cream Percent of Meal Consumed 70% 100% Stool Size Large Stool Consistency liquid Stool Color Brown Green # Bowel Movement Diapers 1 Weight 127.097 kg Blood Glucose* 157 84 Patient Weight 09/23/17 23:59 Weight 127.097 kg - Labs CBC & BMP: 09/23/17 04:42 09/23/17 04:42 Labs: Abnormal lab results WBC 18.4 K/mcL (4.3-11.1) H 09/23/17 04:42 RBC 3.04 M/mcL (4.19-5.50) L 09/23/17 04:42 Hgb 8.4 g/dL (12.9-16.9) L 09/23/17 04:42 Hct 26.8 % (37.5-50.1) L 09/23/17 04:42 MCH 27.6 pg (28.0-33.3) L 09/23/17 04:42 MCHC 31.3 g/dL (31.6-35.5) L 09/23/17 04:42 RDW 14.6 % (11.5-14.5) H 09/23/17 04:42 Plt Count 487 K/mcL (140-400) H 09/23/17 04:42 MPV 8.8 fL (9.4-12.4) L 09/23/17 04:42 Neutrophils # 11.3 K/mcL (1.6-8.9) H 09/23/17 04:42 Monocytes # 1.5 K/mcL (0.0-1.3) H 09/23/17 04:42 Nucleated RBCs/100 WBC 0.1 /100 WBC (0) H 09/18/17 06:05 Reactive Lymphocytes Present (Not Present) A 09/21/17 04:00 Toxic Granulation Present (Not Present) A 09/20/17 05:20 Immature Plt Fraction 0.9 % (1.1-6.1) L 09/23/17 04:42 Hypochromasia Present (Not Present) A 09/20/17 05:20 Poikilocytosis 1+ (Not Present) A 09/21/17 04:00 Anisocytosis 1+ (Not Present) A 09/17/17 05:08 ESR 112 mm/hr (0-10) H 09/19/17 08:58 PT 13.2 Seconds (9.4-12.1) H 09/21/17 04:00 APTT 23.5 Seconds (26.0-36.0) L 09/15/17 04:45 ABG pH 7.46 pH Units (7.32-7.45) H 09/18/17 14:06 ABG pO2 62 mmHg (85-104) L 09/18/17 14:06 ABG Total CO2 27 mEq/L (20-26) H 09/18/17 14:06 ABG O2 Saturation 93 % (95-98) L 09/18/17 14:06 VBG pH 7.19 pH Units (7.32-7.42) L* 09/13/17 01:54 VBG pCO2 56 mmHg (41-51) H 09/13/17 01:54 VBG pO2 86 mmHg (25-50) H 09/13/17 01:54 Potassium 4.7 mEq/L (3.5-4.5) H 09/23/17 04:42 BUN 71 mg/dL (8-26) H D 09/23/17 04:42 Creatinine 6.09 mg/dL (0.72-1.25) H 09/23/17 04:42 Est GFR ( Amer) 11 (> 60) L 09/23/17 04:42 Est GFR (Non-Af Amer) 9 (> 60) L 09/23/17 04:42 Glucose 104 mg/dL (70-99) H 09/23/17 04:42 POC Glucose 157 (58-89) H 09/22/17 10:39 Hemoglobin A1c 8.8 % (-5.6) H 09/13/17 01:37 Calculated Osmolality 313 (280-300) H 09/23/17 04:42 Uric Acid 9.0 mg/dL (3.5-7.2) H 09/13/17 12:13 Calcium 8.0 mg/dL (8.6-10.8) L 09/23/17 04:42 Ionized Calcium 1.11 mmol/L (1.15-1.35) L 09/15/17 07:54 Phosphorus 7.9 mg/dL (2.3-4.7) H 09/20/17 05:20 Iron 23 mcg/dL (65-175) L 09/19/17 04:35 % Saturation 12 % (20-55) L 09/19/17 04:35 Transferrin 132 mg/dL (174-364) L 09/19/17 04:35 Ferritin 442 ng/ml (22-275) H 09/19/17 04:35 Alkaline Phosphatase 189 Units/L (38-126) H 09/19/17 06:50 C-Reactive Protein 170 mg/L (Less than 5) H 09/19/17 08:58 Serum Total Protein 5.3 g/dL (6.0-8.3) L 09/19/17 06:50 Albumin 1.9 g/dL (3.5-5.0) L 09/20/17 05:20 Albumin/Globulin Ratio 0.5 (1.1-2.2) L 09/19/17 06:50 Vitamin B12 > 2000 pg/mL (213-816) H 09/19/17 04:35 Synovial Appearance Cloudy (Clear-Hazy) A 09/10/17 12:48 Synovial RBC 0.196 M/mcl (0.000-0.002) H 09/10/17 12:48 Synovial Tot Nuc Cell > 322082 TNC/mcL (0-200) H 09/10/17 12:48 Streptococcus sp PCR DETECTED (Not Detect) A 09/10/17 12:22 - VTE Documentation of Mechanical Device: Intermittent pneumatic compression device Consult Discharge Plan - Plan Referrals: Casey Monroy, [Primary Care Provider] - 09/27/17 9:20 am (Please follow up as schedule...) Lia Helms, BEBETO [Physician Sr. Social Media & Mobile Manager] - 10/04/17 8:15 am
[2017-09-23] MEDS: *HR* Heparin 5,000 UNIT/ML VIAL SQ SCH ×2 (07:55→17:15)
[2017-09-23] MEDS ORDERED: *HR* Heparin 10,000 UNIT/10 ML VIAL IV PRN (08:05)
[2017-09-23] MEDS ORDERED: 0.9 % Sodium Chloride 250 ML IVC PRN (08:05)
[2017-09-23] MEDS: Insulin LISPRO 300 UNITS/3 ML VIAL SQ SCH ×4 (08:32→20:52)
[2017-09-23] MEDS: MetroNIDAZOLE 500 MG/100 ML 500 MG/100 ML BAG IVPB SCH ×3 (08:34→14:22)
[2017-09-23] MEDS: Calcium Acetate 667 MG CAPSULE PO SCH ×3 (08:35→16:35)
[2017-09-23] MEDS: Sennosides/Docusate Sodium TABLET PO SCH ×2 (08:35→20:52)
[2017-09-23] MEDS: Aspirin Enteric Coated 81 MG Tablet PO SCH (08:35)
[2017-09-23] MEDS: *HR* HYDROmorphone (PF) 1 MG/ML SYRINGE IVP PRN ×2 (08:46→13:57)
[2017-09-23] MEDS ORDERED: 0.9 % Sodium Chloride 2,000 ML ONE (13:53)
[2017-09-23] MEDS: Cefepime HCl 1,000 MG in Water for inj. (sterile) 10 ML IVP SCH (15:49)
[2017-09-23] MEDS: *HR* HYDROcodone/Acet 5/325 mg TABLET PO PRN (17:14)
--- NOTE | 2017-09-23 17:35 | Nephrology Progress Note ---
Date of Encounter: 09/23/17 Time of Encounter: 11:00 - Assessment and Plan (1) TITUS (acute kidney injury) Current Visit: Yes Status: Acute SCr worse again after last HD 2 days ago, hence no signs of CREDIT ADJUSTER yet Will obtain permcath when able for dischrage Outpatient HD already arranged in [place] (2) Hyperkalemia Current Visit: Yes Status: Acute Mild at 4.7, should improvement with HD Renal diet advised Subjective Principal diagnosis: Right Knee - Poly Exchange, washout and closure 09/13/17 Interval history: Pt seen and examined with at bedside. No complaints. concerned as to whether rehab was needed on discharge Objective - Vital Signs Vital signs: Vital Signs Temp Pulse Resp BP Pulse Ox 09/23/17 16:32 98.4 F 99 16 130/67 98 09/23/17 13:25 98.1 F 16 142/61 09/23/17 13:15 125/62 09/23/17 12:45 153/69 09/23/17 12:15 147/83 09/23/17 11:45 135/60 09/23/17 11:15 131/73 09/23/17 10:45 138/67 09/23/17 10:15 140/63 09/23/17 09:45 132/63 09/23/17 09:15 98.1 F 15 133/63 09/23/17 08:39 98 F 78 18 163/86 99 09/23/17 04:45 97.9 F 75 18 157/77 95 09/22/17 23:43 98.3 F 75 17 101/69 95 09/22/17 18:59 98.5 F 83 18 137/79 97 Intake and Output 09/23/17 09/23/17 09/23/17 07:59 15:59 23:59 Intake Total 0 / 0 600 / 600 Output Total 0 / 0 3475 / 3475 Balance 0 / 0 -2875 / -2875 Intake: Oral 0 / 0 0 / 0 Intake, Rinseback and Flushes 600 / 600 Output: Urine 0 / 0 875 / 875 Total Dialysis (HD) Output 2600 / 2600 Other: Stool Size Large Stool Consistency soft Stool Characteristics Pasty Stool Color Brown # Bowel Movements 1 Weight 127.097 kg Blood Glucose* 184 Hemodialysis Net Fluid Removed 2000 (mL) Patient Weight 09/23/17 23:59 Weight 127.097 kg - General Appearance General appearance: Present: well-developed, well-nourished EENT: Present: ATNC, mucous membranes moist Neck: Present: no JVD, supple Respiratory: Present: clear Cardiology: Present: no edema, normal S1, normal S2 Dialysis Vascular Access: Venous Catheter (temp) Gastrointestinal: Present: no tenderness, no guarding Integumentary: Present: warm and dry Neurologic: Present: no focal deficit Additional Comments: surgical knee, right Psychiatric: Present: mood/affect appropriate, cooperative - Lab 09/26/17 03:45 09/26/17 03:45 Most recent lab results ABG pH 7.46 pH Units (7.32-7.45) H 09/18/17 14:06 ABG pCO2 36 mmHg (35-45) 09/18/17 14:06 ABG pO2 62 mmHg (85-104) L 09/18/17 14:06 ABG HCO3 26 mEq/L (21-27) 09/18/17 14:06 ABG O2 Saturation 93 % (95-98) L 09/18/17 14:06 Calcium 8.0 mg/dL (8.6-10.8) L 09/23/17 04:42 Phosphorus 7.9 mg/dL (2.3-4.7) H 09/20/17 05:20 Magnesium 2.3 mg/dL (1.6-2.6) 09/15/17 04:45 Urine Creatinine 143 mg/dL 09/13/17 12:35 Urine Sodium 52.0 mEq/L 09/13/17 12:35 - VTE Documentation of Mechanical Device: Intermittent pneumatic compression device Consult Discharge Plan - Plan Referrals: Lia Helms PAC [Physician Gyroscopic Instrument Tester] - 10/04/17 8:15 am Casey Monroy DO [Primary Care Provider] - 09/27/17 9:20 am (Please follow up as schedule...)
[2017-09-23] MEDS: Melatonin 3 MG TABLET PO PRN (21:06)
--- NOTE | 2017-09-23 22:34 | Internal Med Progress Note ---
Date of Encounter: 09/23/17 Time of Encounter: 16:32 - Assessment and plan (1) Septic joint Current Visit: Yes Status: Acute Assessment and plan: possible right prosthetic knee joint infection; Orthopedics on board, s/p irrigation, debridement, synovectomy and polyexchange on 09/12/17; local wound care and activity per Orthopedics; PT evaluation noted, recommend IP rehab; drug abuse social worker on board; synovial fluid analysis shows high WBC with lymphocyte predominance, gram stain and culture negative; 2/2 blood cultures from 09/10 grew Strep mutans, sensitive to Levaquin; continue IV Levaquin; repeat blood cultures from 09/13 negative; 09/18- will repeat blood cultures today; right knee incision noted to be bleeding, Orthopedics to reevaluate; 09/19- d/w Orthopedics, plan as above; f/up blood cultures and continue local wound care with PAKO wraps; 09/20- WBC gradual elevated. Will broaden abx coverage received a dose of vancomycin, abx were changed. Currently afebrile and hemodynamically stable. 09/21- IR permcath placement cancelled today because of leukocytosis. Started Cefepepime/Flagyl with Levaquin 09/22 - WBC gradual improvement. No indication for temp dialysis cath at this current moment now that renal function showing improvement. will monitor for improvement. Currently patient is afebrile, non-toxic appearing, and hemodynamically stable. 09/23: WBC still elevated plateud at 18. Afebrile, no signs of sepsis currently , Blood cultures from 09/20: NGTD, on broad spectrum antibiotics. Could be more reactive and less likely infectious but will continue broad spectrum IV antibiotics and monitor closely. Qualifiers: Septic arthritis location: knee Septic arthritis organism: due to unspecified organism Laterality: right Qualified Code(s): M00.9 - Pyogenic arthritis, unspecified (2) TITUS (acute kidney injury) Current Visit: Yes Status: Acute Assessment and plan: likely ATN in the setting of severe sepsis, antibiotic use, hypotension; was on diuretic/ACEI/NSAID at home; Nephrology on board; patient closely monitored, recommendations appreciated. 09/21 renal function worsening. antibiotic coverage needed broadened Did receive dose of Vancomycin but was discontinued and alternative antibiotics given. 09/22 renal function improved, temp dialysis cath insertion not needed at this time. 09/23: if no improvement in renal function, will need permacath by Tuesday. (3) Mantle cell lymphoma Current Visit: No Status: Acute Qualifiers: Lymphoma site: unspecified region Qualified Code(s): C83.10 - Mantle cell lymphoma, unspecified site (4) Diabetes mellitus Current Visit: Yes Status: Chronic Assessment and plan: blood sugars noted to be well-controlled; continue Accucheck blood glucose monitoring with sliding scale insulin; diabetic diet; HbA1C 8.8%; Qualifiers: Diabetes mellitus type: type 2 Diabetes mellitus complication status: without complication Diabetes mellitus continuous churn buttermaker insulin use: without halfway use Qualified Code(s): E11.9 - Type 2 diabetes mellitus without complications (5) HTN (hypertension) Current Visit: Yes Status: Chronic Qualifiers: Hypertension type: essential hypertension Qualified Code(s): I10 - Essential (primary) hypertension - Subjective Interval history: No acute events. Chronic back pain bothersome as he is not moving as much. - Constitutional Vitals: Temp Pulse Resp BP Pulse Ox 98.4 F 91 17 137/66 96 09/23/17 19:24 09/23/17 19:24 09/23/17 19:24 09/23/17 19:24 09/23/17 19:24 General appearance: Present: A&O X 3, morbidly obese, answers questions appropriately Exam: - Respiratory Respiratory exam: Present: CTAB. Absent: accessory muscle use, rales, rhonchi, wheezes - Cardiovascular Cardiovascular exam: Present: RRR, +S1, +S2. Absent: diastolic murmur, gallop, rubs, systolic murmur - GI/Abdominal GI/Abdominal exam: Present: normal bowel sounds, soft, no peritoneal signs. Absent: distended, tenderness - Extremities Exam Extremities exam: Present: pedal edema (right knee surgical incision with clean dry intact;), . Absent: calf tenderness, cyanotic Internal Medicine: Result - Labs CBC & Chem 7: 09/23/17 04:42 09/23/17 04:42 Labs: Short CBC 09/23/17 Range/Units 04:42 WBC 18.4 H (4.3-11.1) K/mcL Hgb 8.4 L (12.9-16.9) g/dL Hct 26.8 L (37.5-50.1) % Plt Count 487 H (140-400) K/mcL Neutrophils # 11.3 H (1.6-8.9) K/mcL BMP 09/23/17 04:42 Sodium 141 Potassium 4.7 H Chloride 102 Carbon Dioxide 27 BUN 71 H D Creatinine 6.09 H Glucose 104 H Calcium 8.0 L - ABG Interpretation ABG results: ABG ABG pH 7.46 pH Units (7.32-7.45) H 09/18/17 14:06 ABG pCO2 36 mmHg (35-45) 09/18/17 14:06 ABG pO2 62 mmHg (85-104) L 09/18/17 14:06 ABG O2 Saturation 93 % (95-98) L 09/18/17 14:06 PT/INR, D-dimer PT 13.2 Seconds (9.4-12.1) H 09/21/17 04:00 - VTE Documentation of Mechanical Device: Intermittent pneumatic compression device Consult Discharge Plan - Plan Referrals: Lia Helms, PAC [Physician Medical Staffing Coordinator] - 10/04/17 8:15 am Casey Monroy DO [Primary Care Provider] - 09/27/17 9:20 am (Please follow up as schedule...)
[2017-09-24] MEDS: hydrALAZINE 25 MG TABLET PO SCH ×3 (00:03→18:05)
[2017-09-24] MEDS: MetroNIDAZOLE 500 MG/100 ML 500 MG/100 ML BAG IVPB SCH ×3 (00:03→14:20)
[2017-09-24 04:17] LABS: Basophils # 0.1 K/mcL (0.0-0.2); Basophils % 0.5 %; Eosinophils # 0.2 K/mcL (0.0-0.6); Eosinophils % 1.2 %; Hematocrit 26.1 % (37.5-50.1); Hemoglobin 8.2 g/dL (12.9-16.9); Immature Granulocytes % 1.6 % (0-4); Lymphocytes # 4.4 K/mcL (0.6-4.6); Lymphocytes % 23.1 %; Mean Corpuscular HGB Conc 31.4 g/dL (31.6-35.5); Mean Corpuscular Hemoglobin 27.4 pg (28.0-33.3); Mean Corpuscular Volume 87.3 fL (83.0-100.0); Mean Platelet Volume 8.8 fL (9.4-12.4); Monocytes # 1.7 K/mcL (0.0-1.3); Neutrophils # 12.1 K/mcL (1.6-8.9); Platelet Count 373 K/mcL (140-400); Red Blood Count 2.99 M/mcL (4.19-5.50); Red Cell Distribution Width 14.4 % (11.5-14.5); Segmented Neutrophils % 64.6 %
[2017-09-24 04:37] LABS: Calcium 8.1 mg/dL (8.6-10.8); Potassium 3.9 mEq/L (3.5-4.5)
[2017-09-24] MEDS: *HR* Heparin 5,000 UNIT/ML VIAL SQ SCH ×2 (05:28→17:57)
[2017-09-24] MEDS: Aspirin Enteric Coated 81 MG Tablet PO SCH (08:05)
[2017-09-24] MEDS: Calcium Acetate 667 MG CAPSULE PO SCH ×3 (08:05→17:58)
[2017-09-24] MEDS: Sennosides/Docusate Sodium TABLET PO SCH ×2 (08:06→21:42)
[2017-09-24] MEDS: *HR* HYDROcodone/Acet 5/325 mg TABLET PO PRN (08:15)
[2017-09-24] MEDS: Insulin LISPRO 300 UNITS/3 ML VIAL SQ SCH ×4 (08:34→21:42)
[2017-09-24] MEDS: *HR* HYDROmorphone (PF) 1 MG/ML SYRINGE IVP PRN ×2 (14:20→18:28)
[2017-09-24] MEDS: Cefepime HCl 1,000 MG in Water for inj. (sterile) 10 ML IVP SCH (14:20)
--- NOTE | 2017-09-24 17:02 | Nephrology Progress Note ---
Date of Encounter: 09/24/17 - Assessment and Plan (1) TITUS (acute kidney injury) Current Visit: Yes Status: Acute SCr worse again after last HD 2 days ago, hence no signs of SINGLE END SEWER yet Will obtain permcath when able for dischrage Outpatient HD already arranged in [place] (2) Hyperkalemia Current Visit: Yes Status: Acute Mild at 4.7, should improvement with HD Renal diet advised Subjective Principal diagnosis: Right Knee - Poly Exchange, washout and closure 09/13/17 Interval history: Pt seen and examined with no new complaints. UOP at 1550cc in the past 24hrs. s/ p HD yesterday Objective - Vital Signs Vital signs: Vital Signs Temp Pulse Resp BP Pulse Ox 09/24/17 12:18 97.8 F 79 16 150/63 94 09/24/17 06:47 98.2 F 85 17 113/45 99 09/24/17 03:37 98.4 F 84 16 145/69 96 09/23/17 23:41 98.8 F 79 12 155/67 96 09/23/17 19:24 98.4 F 91 17 137/66 96 Intake and Output 09/24/17 09/24/17 09/24/17 07:59 15:59 23:59 Intake Total 300 / 300 950 / 950 Output Total 1125 / 1125 475 / 475 Balance -825 / -825 475 / 475 Intake: IV Fluids 0 / 0 100 / 100 Flagyl Premix 500 MG/100 ML 500 0 / 0 100 / 100 mg In 100 ml @ 100 mls/hr IVPB Q8H [facility] Rx#:[id number] Oral 450 / 450 Free Water 300 / 300 400 / 400 Output: Urine 1125 / 1125 475 / 475 Other: Meal Breakfast Percent of Meal Consumed 100% Stool Size Moderate Stool Consistency liquid Stool Color Brown # Voids 1 # Bowel Movements 1 Weight 119.068 kg Blood Glucose* 127 Patient Weight 09/24/17 23:59 Weight 119.068 kg - Lab 09/24/17 04:00 09/24/17 04:00 Most recent lab results ABG pH 7.46 pH Units (7.32-7.45) H 09/18/17 14:06 ABG pCO2 36 mmHg (35-45) 09/18/17 14:06 ABG pO2 62 mmHg (85-104) L 09/18/17 14:06 ABG HCO3 26 mEq/L (21-27) 09/18/17 14:06 ABG O2 Saturation 93 % (95-98) L 09/18/17 14:06 Calcium 8.1 mg/dL (8.6-10.8) L 09/24/17 04:00 Phosphorus 7.9 mg/dL (2.3-4.7) H 09/20/17 05:20 Magnesium 2.3 mg/dL (1.6-2.6) 09/15/17 04:45 Urine Creatinine 143 mg/dL 09/13/17 12:35 Urine Sodium 52.0 mEq/L 09/13/17 12:35 - VTE Documentation of Mechanical Device: Intermittent pneumatic compression device Consult Discharge Plan - Plan Referrals: Lia Helms, PAC [Physician Line Patroller] - 10/04/17 8:15 am Casey Monroy, DO [Primary Care Provider] - 09/27/17 9:20 am (Please follow up as schedule...)
--- NOTE | 2017-09-24 21:41 | Internal Med Progress Note ---
Date of Encounter: 09/24/17 Time of Encounter: 18:39 - Assessment and plan (1) Septic joint Current Visit: Yes Status: Acute Assessment and plan: possible right prosthetic knee joint infection; Orthopedics on board, s/p irrigation, debridement, synovectomy and polyexchange on 09/12/17; local wound care and activity per Orthopedics; PT evaluation noted, recommend IP rehab; social science instructor on board; synovial fluid analysis shows high WBC with lymphocyte predominance, gram stain and culture negative; 2/2 blood cultures from 09/10 grew Strep mutans, sensitive to Levaquin; continue IV Levaquin; repeat blood cultures from 09/13 negative; 09/18- will repeat blood cultures today; right knee incision noted to be bleeding, Orthopedics to reevaluate; 09/19- d/w Orthopedics, plan as above; f/up blood cultures and continue local wound care with PAKO wraps; 09/20- WBC gradual elevated. Will broaden abx coverage received a dose of vancomycin, abx were changed. Currently afebrile and hemodynamically stable. 09/21- IR permcath placement cancelled today because of leukocytosis. Started Cefepepime/Flagyl with Levaquin 09/22 - WBC gradual improvement. No indication for temp dialysis cath at this current moment now that renal function showing improvement. will monitor for improvement. Currently patient is afebrile, non-toxic appearing, and hemodynamically stable. 09/23: WBC still elevated plateud at 18. Afebrile, no signs of sepsis currently , Blood cultures from 09/20: NGTD, on broad spectrum antibiotics. Could be more reactive and less likely infectious but will continue broad spectrum IV antibiotics and monitor closely. 09/24: Switched to linezolid Qualifiers: Septic arthritis location: knee Septic arthritis organism: due to unspecified organism Laterality: right Qualified Code(s): M00.9 - Pyogenic arthritis, unspecified (2) TITUS (acute kidney injury) Current Visit: Yes Status: Acute Assessment and plan: likely ATN in the setting of severe sepsis, antibiotic use, hypotension; was on diuretic/ACEI/NSAID at home; Nephrology on board; patient closely monitored, recommendations appreciated. 09/21 renal function worsening. antibiotic coverage needed broadened Did receive dose of Vancomycin but was discontinued and alternative antibiotics given. 09/22 renal function improved, temp dialysis cath insertion not needed at this time. 09/23: if no improvement in renal function, will need permacath by Tuesday. (3) Mantle cell lymphoma Current Visit: No Status: Acute Qualifiers: Lymphoma site: unspecified region Qualified Code(s): C83.10 - Mantle cell lymphoma, unspecified site (4) Diabetes mellitus Current Visit: Yes Status: Chronic Assessment and plan: blood sugars noted to be well-controlled; continue Accucheck blood glucose monitoring with sliding scale insulin; diabetic diet; HbA1C 8.8%; Qualifiers: Diabetes mellitus type: type 2 Diabetes mellitus complication status: without complication Diabetes mellitus mcc insulin use: without long term care administrator use Qualified Code(s): E11.9 - Type 2 diabetes mellitus without complications (5) HTN (hypertension) Current Visit: Yes Status: Chronic Assessment and plan: BP better controlled; continue PO Hydralazine, continue beta rae. will use PRN IV Hydralazine for appropriate control; ACEI on hold; Qualifiers: Hypertension type: essential hypertension Qualified Code(s): I10 - Essential (primary) hypertension - Subjective Interval history: No acute events. Chronic back pain bothersome as he is not moving as much. - Constitutional Vitals: Temp Pulse Resp BP Pulse Ox 99 F 88 16 144/69 97 09/24/17 21:02 09/24/17 21:02 09/24/17 21:02 09/24/17 21:02 09/24/17 21:02 General appearance: Present: A&O X 3, morbidly obese, answers questions appropriately Exam: CVS: RRR Lungs: CTAB Abd: Soft, Nt/nd ext: RLE: right foot amputation appearance unchanged. Knee excision c/d/i. Erythema surrounding is improving. Internal Medicine: Result - Labs CBC & Chem 7: 09/24/17 04:00 09/24/17 04:00 Labs: Short CBC 09/24/17 Range/Units 04:00 WBC 18.8 H (4.3-11.1) K/mcL Hgb 8.2 L (12.9-16.9) g/dL Hct 26.1 L (37.5-50.1) % Plt Count 373 (140-400) K/mcL Neutrophils # 12.1 H (1.6-8.9) K/mcL BMP 09/24/17 04:00 Sodium 139 Potassium 3.9 Chloride 103 Carbon Dioxide 27 BUN 39 H D Creatinine 4.10 H Glucose 119 H Calcium 8.1 L - ABG Interpretation ABG results: ABG ABG pH 7.46 pH Units (7.32-7.45) H 09/18/17 14:06 ABG pCO2 36 mmHg (35-45) 09/18/17 14:06 ABG pO2 62 mmHg (85-104) L 09/18/17 14:06 ABG O2 Saturation 93 % (95-98) L 09/18/17 14:06 PT/INR, D-dimer PT 13.2 Seconds (9.4-12.1) H 09/21/17 04:00 - VTE Documentation of Mechanical Device: Intermittent pneumatic compression device Consult Discharge Plan - Plan Referrals: Lia Helms, PAC [Physician Golf Superintendent] - 10/04/17 8:15 am Casey Monroy DO [Primary Care Provider] - 09/27/17 9:20 am (Please follow up as schedule...)
[2017-09-24] MEDS: Melatonin 3 MG TABLET PO PRN (21:48)
[2017-09-25] MEDS: hydrALAZINE 25 MG TABLET PO SCH ×3 (00:01→15:23)
[2017-09-25] MEDS: MetroNIDAZOLE 500 MG/100 ML 500 MG/100 ML BAG IVPB SCH ×3 (00:01→15:23)
[2017-09-25] MEDS: *HR* HYDROmorphone (PF) 1 MG/ML SYRINGE IVP PRN ×3 (00:01→20:28)
[2017-09-25 04:12] LABS: Basophils # 0.1 K/mcL (0.0-0.2); Basophils % 0.6 %; Eosinophils # 0.3 K/mcL (0.0-0.6); Eosinophils % 1.4 %; Hematocrit 23.9 % (37.5-50.1); Hemoglobin 7.6 g/dL (12.9-16.9); Immature Granulocytes % 1.3 % (0-4); Mean Corpuscular HGB Conc 31.8 g/dL (31.6-35.5); Mean Corpuscular Hemoglobin 27.8 pg (28.0-33.3); Mean Corpuscular Volume 87.5 fL (83.0-100.0); Mean Platelet Volume 8.6 fL (9.4-12.4); Monocytes # 1.7 K/mcL (0.0-1.3); Monocytes % 9.7 %; Neutrophils # 11.2 K/mcL (1.6-8.9); Platelet Count 417 K/mcL (140-400); Red Blood Count 2.73 M/mcL (4.19-5.50); Red Cell Distribution Width 14.4 % (11.5-14.5)
[2017-09-25] MEDS: *HR* Heparin 5,000 UNIT/ML VIAL SQ SCH ×2 (06:06→16:57)
[2017-09-25] MEDS: Insulin LISPRO 300 UNITS/3 ML VIAL SQ SCH ×4 (08:38→20:25)
[2017-09-25] MEDS: Aspirin Enteric Coated 81 MG Tablet PO SCH (09:33)
[2017-09-25] MEDS: Calcium Acetate 667 MG CAPSULE PO SCH ×3 (09:33→16:57)
[2017-09-25] MEDS: Sennosides/Docusate Sodium TABLET PO SCH ×2 (09:36→20:29)
--- NOTE | 2017-09-25 11:26 | Nephrology Progress Note ---
Date of Encounter: 09/25/17 Time of Encounter: 13:00 - Assessment and Plan (1) TITUS (acute kidney injury) Current Visit: Yes Status: Acute SCr worse again from 4.1 to 4.7 after a day of HD with great UOP. Will definite signs of renal recovery but not completely. If any worse tomorrow, will still require HD and possibly permcath UOP remains great Continue to avoid nephrotoxins if possible Outpatient HD already arranged in [place] if needed. (2) Hyperkalemia Current Visit: Yes Status: Acute Resolved Continue renal diet (3) Anemia Current Visit: Yes Status: Acute Hgb noted low at 7.7, etiology unclear. Transfusion parameters per primary team Qualifiers: Qualified Code(s): D64.9 - Anemia, unspecified Subjective Principal diagnosis: Right Knee - Poly Exchange, washout and closure 09/13/17 Interval history: Pt seen and examined with no new complaints. UOP at 1975cc in the past 24hrs. s/ p HD on tuesday Objective - Vital Signs Vital signs: Vital Signs Temp Pulse Resp BP Pulse Ox 09/25/17 11:10 97.8 F 83 18 149/72 99 09/25/17 07:22 98.2 F 81 16 153/72 98 09/25/17 04:22 98.4 F 81 16 153/68 96 09/25/17 00:24 98.6 F 81 16 152/72 93 09/24/17 21:02 99 F 88 16 144/69 97 09/24/17 17:38 99.2 F 94 17 164/70 95 09/24/17 12:18 97.8 F 79 16 150/63 94 Intake and Output 09/24/17 09/25/17 09/25/17 23:59 07:59 15:59 Intake Total 900 / 900 100 / 100 0 / 0 Output Total 375 / 375 1525 / 1525 450 / 450 Balance 525 / 525 -1425 / -1425 -450 / -450 Intake: IV Fluids 300 / 300 100 / 100 Zyvox Premix 600mg/300mL 600 mg 300 / 300 In 300 ml @ 150 mls/hr IVPB Q12HR [facility] Rx#:[id number] Flagyl Premix 500 MG/100 ML 500 100 / 100 mg In 100 ml @ 100 mls/hr IVPB Q8H [facility] Rx#:[id number] Oral 600 / 600 0 / 0 Output: Urine 375 / 375 1525 / 1525 450 / 450 Other: Meal Dinner Percent of Meal Consumed 100% Weight 122.3 kg Blood Glucose* 160 131 Patient Weight 09/25/17 23:59 Weight 122.3 kg - General Appearance General appearance: Present: well-developed, well-nourished EENT: Present: ATNC, mucous membranes moist Neck: Present: no JVD, supple Respiratory: Present: clear Cardiology: Present: no edema, normal S1, normal S2 Dialysis Vascular Access: Venous Catheter (temp) Gastrointestinal: Present: no tenderness, no guarding Integumentary: Present: warm and dry Neurologic: Present: no focal deficit Additional Comments: surgical knee, right Psychiatric: Present: mood/affect appropriate - Lab 09/26/17 03:45 09/26/17 03:45 Most recent lab results ABG pH 7.46 pH Units (7.32-7.45) H 09/18/17 14:06 ABG pCO2 36 mmHg (35-45) 09/18/17 14:06 ABG pO2 62 mmHg (85-104) L 09/18/17 14:06 ABG HCO3 26 mEq/L (21-27) 09/18/17 14:06 ABG O2 Saturation 93 % (95-98) L 09/18/17 14:06 Calcium 8.0 mg/dL (8.6-10.8) L 09/25/17 03:45 Phosphorus 7.9 mg/dL (2.3-4.7) H 09/20/17 05:20 Magnesium 2.3 mg/dL (1.6-2.6) 09/15/17 04:45 Urine Creatinine 143 mg/dL 09/13/17 12:35 Urine Sodium 52.0 mEq/L 09/13/17 12:35 - VTE Documentation of Mechanical Device: Intermittent pneumatic compression device Consult Discharge Plan - Plan Referrals: Lia Helms PAC [Physician Clinical Program Director] - 10/04/17 8:15 am Casey Monroy DO [Primary Care Provider] - 09/27/17 9:20 am (Please follow up as schedule...)
[2017-09-25] MEDS: *HR* HYDROcodone/Acet 5/325 mg TABLET PO PRN (13:08)
[2017-09-25] MEDS: Cefepime HCl 1,000 MG in Water for inj. (sterile) 10 ML IVP SCH (15:22)
--- NOTE | 2017-09-25 18:22 | Internal Med Progress Note ---
Date of Encounter: 09/25/17 Time of Encounter: 12:46 - Assessment and plan (1) Septic joint Current Visit: Yes Status: Acute Assessment and plan: possible right prosthetic knee joint infection; Orthopedics on board, s/p irrigation, debridement, synovectomy and polyexchange on 09/12/17; local wound care and activity per Orthopedics; PT evaluation noted, recommend IP rehab; social insurance administrator on board; synovial fluid analysis shows high WBC with lymphocyte predominance, gram stain and culture negative; 2/2 blood cultures from 09/10 grew Strep mutans, sensitive to Levaquin; continue IV Levaquin; repeat blood cultures from 09/13 negative; 09/18- will repeat blood cultures today; right knee incision noted to be bleeding, Orthopedics to reevaluate; 09/19- d/w Orthopedics, plan as above; f/up blood cultures and continue local wound care with PAKO wraps; 09/20- WBC gradual elevated. Will broaden abx coverage received a dose of vancomycin, abx were changed. Currently afebrile and hemodynamically stable. 09/21- IR permcath placement cancelled today because of leukocytosis. Started Cefepepime/Flagyl with Levaquin 09/22 - WBC gradual improvement. No indication for temp dialysis cath at this current moment now that renal function showing improvement. will monitor for improvement. Currently patient is afebrile, non-toxic appearing, and hemodynamically stable. 09/23: WBC still elevated plateud at 18. Afebrile, no signs of sepsis currently , Blood cultures from 09/20: NGTD, on broad spectrum antibiotics. Could be more reactive and less likely infectious but will continue broad spectrum IV antibiotics and monitor closely. 09/24: Switched to linezolid Permacath planned for tomorrow Continue Cefepim/Flagyl/Linezolid Qualifiers: Septic arthritis location: knee Septic arthritis organism: due to unspecified organism Laterality: right Qualified Code(s): M00.9 - Pyogenic arthritis, unspecified (2) Leukocytosis Current Visit: Yes Status: Acute Assessment and plan: Reviewed labs from this month (09/09-09/25) and past two years. Patient has had chronically elevated leukocytosis, possibly lymphoma related, but high risk because of septic joint. Will keep broad coverage antibiotics with Cefepime/ Flagyl/Linezolid and he will need set up to go home with IV infusion. Qualifiers: Leukocytosis type: unspecified Qualified Code(s): D72.829 - Elevated white blood cell count, unspecified (3) TITUS (acute kidney injury) Current Visit: Yes Status: Acute Assessment and plan: likely ATN in the setting of severe sepsis, antibiotic use, hypotension; was on diuretic/ACEI/NSAID at home; Nephrology on board; patient closely monitored, recommendations appreciated. Likely permacath Tuesday. (4) Mantle cell lymphoma Current Visit: No Status: Acute Qualifiers: Lymphoma site: unspecified region Qualified Code(s): C83.10 - Mantle cell lymphoma, unspecified site (5) Diabetes mellitus Current Visit: Yes Status: Chronic Assessment and plan: blood sugars noted to be well-controlled; continue Accucheck blood glucose monitoring with sliding scale insulin; diabetic diet; HbA1C 8.8%; Qualifiers: Diabetes mellitus type: type 2 Diabetes mellitus complication status: without complication Diabetes mellitus fci insulin use: without manager long term care use Qualified Code(s): E11.9 - Type 2 diabetes mellitus without complications (6) HTN (hypertension) Current Visit: Yes Status: Chronic Assessment and plan: BP better controlled; continue PO Hydralazine, continue beta rae. will use PRN IV Hydralazine for appropriate control; ACEI on hold; Qualifiers: Hypertension type: essential hypertension Qualified Code(s): I10 - Essential (primary) hypertension (7) Lymphocytosis Current Visit: No Status: Chronic - Subjective Interval history: No acute events, no complaints. - Constitutional Vitals: Temp Pulse Resp BP Pulse Ox 97.8 F 83 18 149/72 99 09/25/17 11:10 09/25/17 11:10 09/25/17 11:10 09/25/17 11:10 09/25/17 11:10 General appearance: Present: A&O X 3, morbidly obese, answers questions appropriately Exam: CVS: RRR lungs: CTAB Ext: right leg incision c/d/i, right foot amputation Internal Medicine: Result - Labs CBC & Chem 7: 09/25/17 03:45 09/25/17 03:45 Labs: Short CBC 09/25/17 Range/Units 03:45 WBC 17.4 H (4.3-11.1) K/mcL Hgb 7.6 L (12.9-16.9) g/dL Hct 23.9 L (37.5-50.1) % Plt Count 417 H (140-400) K/mcL Neutrophils # 11.2 H (1.6-8.9) K/mcL BMP 09/25/17 03:45 Sodium 140 Potassium 4.0 Chloride 105 Carbon Dioxide 25 BUN 55 H D Creatinine 4.73 H Glucose 124 H Calcium 8.0 L - ABG Interpretation ABG results: ABG ABG pH 7.46 pH Units (7.32-7.45) H 09/18/17 14:06 ABG pCO2 36 mmHg (35-45) 09/18/17 14:06 ABG pO2 62 mmHg (85-104) L 09/18/17 14:06 ABG O2 Saturation 93 % (95-98) L 09/18/17 14:06 PT/INR, D-dimer PT 13.2 Seconds (9.4-12.1) H 09/21/17 04:00 - VTE Documentation of Mechanical Device: Intermittent pneumatic compression device Consult Discharge Plan - Plan Referrals: Lia Helms, PAC [Physician Educational Resource Coordinator] - 10/04/17 8:15 am Casey Monroy DO [Primary Care Provider] - 09/27/17 9:20 am (Please follow up as schedule...)
[2017-09-26] MEDS: MetroNIDAZOLE 500 MG/100 ML 500 MG/100 ML BAG IVPB SCH ×2 (00:08→09:14)
[2017-09-26] MEDS: hydrALAZINE 25 MG TABLET PO SCH ×3 (00:08→17:22)
[2017-09-26] MEDS: *HR* HYDROmorphone (PF) 1 MG/ML SYRINGE IVP PRN ×2 (00:32→06:12)
[2017-09-26 03:57] LABS: Basophils # 0.1 K/mcL (0.0-0.2); Basophils % 0.5 %; Eosinophils # 0.3 K/mcL (0.0-0.6); Eosinophils % 1.4 %; Hematocrit 24.4 % (37.5-50.1); Hemoglobin 7.7 g/dL (12.9-16.9); Immature Granulocytes % 0.7 % (0-4); Lymphocytes % 21.4 %; Mean Corpuscular HGB Conc 31.6 g/dL (31.6-35.5); Mean Corpuscular Hemoglobin 27.8 pg (28.0-33.3); Mean Corpuscular Volume 88.1 fL (83.0-100.0); Mean Platelet Volume 8.6 fL (9.4-12.4); Monocytes # 1.8 K/mcL (0.0-1.3); Monocytes % 9.3 %; Neutrophils # 12.6 K/mcL (1.6-8.9); Platelet Count 486 K/mcL (140-400); Red Blood Count 2.77 M/mcL (4.19-5.50); Red Cell Distribution Width 14.3 % (11.5-14.5); Segmented Neutrophils % 66.7 %
[2017-09-26 04:07] LABS: Calcium 8.7 mg/dL (8.6-10.8); Potassium 4.1 mEq/L (3.5-4.5)
[2017-09-26] MEDS: *HR* Heparin 5,000 UNIT/ML VIAL SQ SCH ×2 (06:13→17:21)
[2017-09-26] MEDS: Insulin LISPRO 300 UNITS/3 ML VIAL SQ SCH ×3 (09:08→17:23)
[2017-09-26] MEDS: Calcium Acetate 667 MG CAPSULE PO SCH ×3 (09:14→17:22)
[2017-09-26] MEDS: Aspirin Enteric Coated 81 MG Tablet PO SCH (09:14)
[2017-09-26] MEDS: Sennosides/Docusate Sodium TABLET PO SCH ×2 (09:14→20:24)
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
[2017-09-26] MEDS ORDERED: Levofloxacin 750 MG/150 ML 750 MG/150 ML BAG IVPB SCH (12:00)
--- NOTE | 2017-09-26 12:09 | Nephrology Progress Note ---
Date of Encounter: 09/26/17 Time of Encounter: 12:07 - Assessment and Plan (1) TITUS (acute kidney injury) Current Visit: Yes Status: Acute Patient with oliguric, multifactorial acute kidney injury. Seems to be from post-op status, vancomycin use and nephrotoxins. Adjust medications for renal function. Avoid nephrotoxins. Patient oliguric, but urine output improving the last two days. Will likely perform dialysis Wednesday 09/19 for hyperkalemia and worsening azotemia. Patient seems volume positive. Robust blood pressure. Most recent urinalysis unremarkable. (2) ATN (acute tubular necrosis) Current Visit: Yes Status: Acute Patient with acute kidney injury secondary to acute tubular necrosis. Monitor for improvement. Patient remains oliguric but urine output improving. (3) Hyperkalemia Current Visit: Yes Status: Acute Dialysis Tuesday. (4) Hyperphosphatemia Current Visit: Yes Status: Acute Phosphate binder. Renal diet. (5) Hyperuricemia Current Visit: Yes Status: Acute Start allopurinol or febuxostat on discharge. (6) Anemia Current Visit: Yes Status: Acute Check iron stores, vitamin b12, and folate. Qualifiers: Qualified Code(s): D64.9 - Anemia, unspecified Subjective Principal diagnosis: Right Knee - Poly Exchange, washout and closure 09/13/17 Interval history: Patient was seen and evaluated. He feels comfortable. He is not on BiPAP. He denies dyspnea and states his appetite is improving. He has a new discomfort in his left lower extremity. Review of system otherwise is stable. Objective - Vital Signs Vital signs: Vital Signs Temp Pulse Resp BP Pulse Ox 09/26/17 07:54 98.8 F 93 16 151/73 95 09/26/17 04:26 98.9 F 93 16 155/73 95 09/25/17 22:56 99.5 F 87 18 138/70 98 09/25/17 18:57 98.2 F 90 18 158/70 100 Intake and Output 09/25/17 09/26/17 09/26/17 23:59 07:59 15:59 Intake Total 400 / 400 100 / 100 Output Total 1650 / 1650 250 / 250 Balance 400 / 400 -1550 / -1550 -250 / -250 Intake: IV Fluids 400 / 400 100 / 100 Zyvox Premix 600mg/300mL 600 mg 300 / 300 In 300 ml @ 150 mls/hr IVPB Q12HR [facility] Rx#:[id number] Flagyl Premix 500 MG/100 ML 500 100 / 100 100 / 100 mg In 100 ml @ 100 mls/hr IVPB Q8H [place] Rx#:[id number] Output: Urine 1650 / 1650 250 / 250 Other: Weight 121.472 kg Blood Glucose* 155 138 Patient Weight 09/26/17 23:59 Weight 121.472 kg - General Appearance General appearance: Present: well-developed, well-nourished EENT: Present: ATNC Neck: Present: supple Respiratory: Present: clear Cardiology: Present: no edema, regular rate, regular rhythm Dialysis Vascular Access: Venous Catheter Integumentary: Present: warm and dry Neurologic: Present: alert and oriented x3 Musculoskeletal: Present: no cyanosis Psychiatric: Present: mood/affect appropriate - Lab 09/26/17 03:45 09/26/17 03:45 Most recent lab results ABG pH 7.46 pH Units (7.32-7.45) H 09/18/17 14:06 ABG pCO2 36 mmHg (35-45) 09/18/17 14:06 ABG pO2 62 mmHg (85-104) L 09/18/17 14:06 ABG HCO3 26 mEq/L (21-27) 09/18/17 14:06 ABG O2 Saturation 93 % (95-98) L 09/18/17 14:06 Calcium 8.7 mg/dL (8.6-10.8) 09/26/17 03:45 Phosphorus 7.9 mg/dL (2.3-4.7) H 09/20/17 05:20 Magnesium 2.3 mg/dL (1.6-2.6) 09/15/17 04:45 Urine Creatinine 143 mg/dL 09/13/17 12:35 Urine Sodium 52.0 mEq/L 09/13/17 12:35 - VTE Documentation of Mechanical Device: Intermittent pneumatic compression device Consult Discharge Plan - Plan Referrals: Lia Hemls, PAC [Physician Commercial Instructor Supervisor] - 10/04/17 8:15 am Casey Monroy DO [Primary Care Provider] - 10/05/17 12:30 pm ()
[2017-09-26] MEDS: *HR* OxyCODONE/APAP 10/325 TABLET PO PRN ×2 (14:33→20:24)
[2017-09-26] MEDS: Temazepam 15 MG CAPSULE PO PRN (20:24)
[2017-09-26] MEDS: Melatonin 3 MG TABLET PO PRN (20:25)
[2017-09-27] MEDS: hydrALAZINE 25 MG TABLET PO SCH ×4 (00:02→23:54)
[2017-09-27] MEDS: Insulin LISPRO 300 UNITS/3 ML VIAL SQ SCH ×5 (00:02→21:50)
[2017-09-27] MEDS: *HR* OxyCODONE/APAP 5/325 TABLET PO PRN ×3 (04:15→23:53)
[2017-09-27 04:20] LABS: Basophils # 0.1 K/mcL (0.0-0.2); Basophils % 0.4 %; Eosinophils # 0.2 K/mcL (0.0-0.6); Eosinophils % 0.9 %; Hematocrit 23.1 % (37.5-50.1); Hemoglobin 7.5 g/dL (12.9-16.9); Immature Granulocytes % 0.9 % (0-4); Lymphocytes # 3.8 K/mcL (0.6-4.6); Lymphocytes % 20.6 %; Mean Corpuscular HGB Conc 32.5 g/dL (31.6-35.5); Mean Corpuscular Hemoglobin 28.2 pg (28.0-33.3); Mean Corpuscular Volume 86.8 fL (83.0-100.0); Mean Platelet Volume 8.5 fL (9.4-12.4); Monocytes # 1.7 K/mcL (0.0-1.3); Monocytes % 9.3 %; Neutrophils # 12.4 K/mcL (1.6-8.9); Platelet Count 477 K/mcL (140-400); Red Blood Count 2.66 M/mcL (4.19-5.50); Red Cell Distribution Width 14.5 % (11.5-14.5); Segmented Neutrophils % 67.9 %
[2017-09-27 04:37] LABS: Calcium 8.3 mg/dL (8.6-10.8)
[2017-09-27] MEDS: *HR* Heparin 5,000 UNIT/ML VIAL SQ SCH ×2 (06:10→17:47)
[2017-09-27] MEDS: Calcium Acetate 667 MG CAPSULE PO SCH ×3 (08:33→17:50)
[2017-09-27] MEDS: Sennosides/Docusate Sodium TABLET PO SCH ×2 (08:34→21:50)
[2017-09-27] MEDS: Aspirin Enteric Coated 81 MG Tablet PO SCH (08:34)
[2017-09-27] MEDS: *HR* OxyCODONE/APAP 10/325 TABLET PO PRN ×2 (10:40→21:48)
[2017-09-27] MEDS: Levofloxacin 500 MG/100 ML 500 MG/100 ML BAG IVPB SCH (12:02)
--- NOTE | 2017-09-27 13:26 | Internal Med Progress Note ---
Date of Encounter: 09/27/17 Time of Encounter: 09:30 - Assessment and plan (1) Lymphocytosis Current Visit: Yes Status: Chronic (2) Mantle cell lymphoma Current Visit: Yes Status: Chronic Assessment and plan: May be underlying cause of leukocytosis. Qualifiers: Lymphoma site: unspecified region Qualified Code(s): C83.10 - Mantle cell lymphoma, unspecified site (3) Septic joint Current Visit: Yes Status: Acute Assessment and plan: possible right prosthetic knee joint infection; Orthopedics review noted, s/p irrigation, debridement, synovectomy and polyexchange on 09/12/17; local wound care and activity per Orthopedics; PT evaluation noted, recommend IP rehab; social media campaign manager on board; bed is acceptable synovial fluid analysis shows high WBC with lymphocyte predominance, gram stain and culture negative; 2/2 blood cultures from 09/10 grew Strep mutans, sensitive to Levaquin; continue IV Levaquin; repeat blood cultures from 09/13 negative; Continue Linezolid and Levaquin based on culture reports Continue dressing per ortho Awaiting Infectious disease evaluation Qualifiers: Septic arthritis location: knee Septic arthritis organism: due to unspecified organism Laterality: right Qualified Code(s): M00.9 - Pyogenic arthritis, unspecified (4) TITUS (acute kidney injury) Current Visit: Yes Status: Acute Assessment and plan: likely ATN in the setting of severe sepsis, antibiotic use, hypotension; was on diuretic/ACEI/NSAID at home; Nephrology on board; patient closely monitored, recommendations appreciated. Hold off on Permacath as patient may not need dialysis. (5) Diabetes mellitus Current Visit: Yes Status: Chronic Assessment and plan: blood sugars noted to be well-controlled; continue Accucheck blood glucose monitoring with sliding scale insulin; diabetic diet; HbA1C 8.8%; Qualifiers: Diabetes mellitus type: type 2 Diabetes mellitus complication status: without complication Diabetes mellitus correction insulin use: without superintendent terminal use Qualified Code(s): E11.9 - Type 2 diabetes mellitus without complications (6) HTN (hypertension) Current Visit: Yes Status: Chronic Assessment and plan: Controlled, continue current meds Qualifiers: Hypertension type: essential hypertension Qualified Code(s): I10 - Essential (primary) hypertension (7) DVT prophylaxis Current Visit: Yes Status: Acute Assessment and plan: Continue Heparin subcutaneous (8) ZENA (obstructive sleep apnea) Current Visit: Yes Status: Chronic Assessment and plan: continue nocturnal CPAP; noncompliant; he just received it at home prior to this admission; encouraged to start using it to help his confusion and hallucinations; (9) Anemia Current Visit: Yes Status: Chronic Assessment and plan: Possibly secondary to kidney disease Hb is stable Qualifiers: Anemia type: unspecified type Qualified Code(s): D64.9 - Anemia, unspecified (10) Leukocytosis Current Visit: Yes Status: Chronic Assessment and plan: Reviewed labs from this month (09/09-09/25) and past two years. Patient has had chronically elevated leukocytosis, possibly lymphoma related, but high risk because of septic joint. Continue Levaquin and Linezolid Infectious disease eval is pending Qualifiers: Leukocytosis type: unspecified Qualified Code(s): D72.829 - Elevated white blood cell count, unspecified - Subjective Interval history: Seen and evaluated at bedside He was admitted and being managed for Right Knee septic arthritis, TITUS on CKD, He has a PMH of Mantle cell lymphoma, DM, CKD, HTN He had an episode of nausea and vomiting this a.m, he otherwise denies any complains He is awaiting infectious disease review for recommendations for antibiotics prior to discharge and for follow up as out-patient He is on Levaquin and Linezolid/ for Septic arthirits at this time - Constitutional Vitals: Temp Pulse Resp BP Pulse Ox 99.0 F 88 17 132/66 97 09/27/17 10:53 09/27/17 10:53 09/27/17 10:53 09/27/17 10:53 09/27/17 10:53 AAOX3, not in any form of distress HEENT: Not cyanotic, not pale, sclera anicteric Chest: CTAB Heart: S1, S2 only, n m/g/r Abdomen: soft, not tender Extremities: R knee in dressing, s/p Left foot amputation, Right foot unremarkable. No edema bilaterally General appearance: Present: A&O X 3, morbidly obese, answers questions appropriately Internal Medicine: Result - Labs CBC & Chem 7: 09/27/17 04:05 09/27/17 04:05 Labs: Short CBC 09/27/17 Range/Units 04:05 WBC 18.3 H (4.3-11.1) K/mcL Hgb 7.5 L (12.9-16.9) g/dL Hct 23.1 L (37.5-50.1) % Plt Count 477 H (140-400) K/mcL Neutrophils # 12.4 H (1.6-8.9) K/mcL BMP 09/27/17 04:05 Sodium 139 Potassium 4.0 Chloride 105 Carbon Dioxide 24 BUN 55 H Creatinine 3.93 H Glucose 124 H Calcium 8.3 L - ABG Interpretation ABG results: ABG ABG pH 7.46 pH Units (7.32-7.45) H 09/18/17 14:06 ABG pCO2 36 mmHg (35-45) 09/18/17 14:06 ABG pO2 62 mmHg (85-104) L 09/18/17 14:06 ABG O2 Saturation 93 % (95-98) L 09/18/17 14:06 PT/INR, D-dimer PT 13.2 Seconds (9.4-12.1) H 09/21/17 04:00 - VTE Documentation of Mechanical Device: Intermittent pneumatic compression device Consult Discharge Plan - Plan Referrals: Lia Helms, PAC [Physician Inspector Salvage] - 10/04/17 8:15 am Casey Monroy DO [Primary Care Provider] - 10/05/17 12:30 pm ()
--- NOTE | 2017-09-27 16:11 | Infectious Disease Consult ---
Date of Encounter: 09/27/17 Time of Encounter: 16:09 Assessment and Plan (1) Severe sepsis Status: Resolved Assessment and plan: The patient had two SIRS criteria on admission. Likely secondary to bacteremia and right knee PJI. Improved. WBC stable. Tachycardia has resolved. Blood cultures drawn 09/10/17 were positive 2/2 sets for S. mutans. Repeat blood cultures drawn 09/13/17 2/2 sets, 09/18/17 2/2 sets, 172/2 sets negative. (2) Leukocytosis Status: Chronic Assessment and plan: Appears chronic based on previous labs. Patient reports chronic leukocytosis is what prompted the workup that revealed his mantle cell lymphoma. Follows with [facility], Dr. Mcintyre. Not currently receiving treatment at this time. Qualifiers: Leukocytosis type: unspecified Qualified Code(s): D72.829 - Elevated white blood cell count, unspecified (3) Bacteremia Status: Acute Assessment and plan: Causative organism S. mutans. Source unclear: PJI vs other with seeding of the right knee. Complicated due to the presence of hardware in the right knee and left ankle. Blood cultures drawn 09/10/17 were positive 2/2 sets for S. mutans. Repeat blood cultures drawn 09/13/17 2/2 sets, 09/18/17 2/2 sets, 172/2 sets negative. KEYA negative for vegetations. Due to the susceptibility pattern, the patient has been treated with Levaquin and Zyvox. Discontinue Zyvox. The patient will require more than 14 days of IV antibiotics and Zyvox is only approved for use for 14 day course or less. Additionally, the patient is on an SSRI, which concurrent use of SSRIs and Zyvox put him at risk for Serotonin Syndrome. Continue Levaquin 500mg IV Q48H (dose-adjusted for creatinine clearance for standard 750mg daily dose). Duration of treatment depends on the clinical picture, but the patient will require a prolonged course due to concurrent PJI. Monitor renal function and dose-adjust antibiotics. (4) Prosthetic joint infection Status: Acute Assessment and plan: Location: Right knee. Etiology unclear. The patient denies any known trauma. Unclear if this is the primary source of the patient's infection or it was seeded from the patient's bacteremia. Late-onset. Causative organism likely S. mutans. CT scan showed findings consistent with septic arthritis. Status post bedside arthrocentesis. Large amount of purulent fluid aspirated. TNC >100,000 with 96% lymphocytes. Gram stain and culture negative. Ortho consulted. Status post right knee arthrotomy, I & D, synovectomy, and poly exchange 09/11/17. Operative note reviewed. Gross purulence noted. Intra- op cultures interpreted as normal skin sadie. The patient had SVT intra-op so the ortho team opted for DONITA surgery rather than planned one-stage exchange. ESR and CRP elevated on admission, 67 and 424, respectively. Improved--> ESR 38, CRP 151. Clinically, the knee looks great. Given that the patient is doing well clinically and has no other SIRS criteria, it is most likely that the patient's leukocytosis is chronic and not related to recurrence of knee infection or new infectious source. I did discuss with the patient and his that there is a high risk of treatment failure due to the type of procedure he had and we will have to be aggressive with antibiotics to prevent recurrence. He is agreeable to continue IV antibiotics and states he feels comfortable doing them at home. We discussed the risks, benefits, and alternatives and he is agreeable. Continue antibiotics as above. Duration of treatment depends on the clinical picture, but likely at least 6 weeks of IV antibiotics followed by oral suppressive therapy. Continue wound care and activity restrictions as outlined by the primary team. Monitor renal function and dose-adjust antibiotics. corporate services manager consulted to assist with discharge planning. Will need weekly CBC, ESR, and CRP with 2x weekly BUN/Cr. Will need to consult VAT in the morning for EPIV placement. Will need weekly EPIV care per protocol. Follow up with ID 10/13/17 at 0820. Qualifiers: Encounter type: initial encounter Qualified Code(s): T84.50XA - Infection and inflammatory reaction due to unspecified internal joint prosthesis, initial encounter (5) TITUS (acute kidney injury) Status: Acute Assessment and plan: Likely multifactorial: sepsis, nephrotoxic medications, decreased renal perfusion due to hypotension and tachycardia. Improved. Nephrology consulted and following. No further HD recommended at this time. Will need to monitor renal function closely and dose-adjust antibiotics. (6) Mantle cell lymphoma Status: Chronic Assessment and plan: Follows with [facility] - Dr. Mcintyre. No treatment at this time. Qualifiers: Lymphoma site: unspecified region Qualified Code(s): C83.10 - Mantle cell lymphoma, unspecified site (7) SVT (supraventricular tachycardia) Status: Resolved Assessment and plan: Sustained intra-op. Resolved. (8) ZENA (obstructive sleep apnea) Status: Chronic (9) Anemia Status: Chronic Assessment and plan: Likely multifactorial: acute blood loss + acute kidney injury. No active bleeding noted on exam. Transfusion parameters per the primary and nephrology teams. Qualifiers: Anemia type: unspecified type Qualified Code(s): D64.9 - Anemia, unspecified (10) Diabetes mellitus Status: Chronic Assessment and plan: Uncontrolled. HgbA1C 8.8%. Recommend aggressive glucose monitoring to promote wound healing and prevent re- infection. Management per the primary team. Qualifiers: Diabetes mellitus type: type 2 Diabetes mellitus complication status: without complication Diabetes mellitus correction insulin use: without correction use Qualified Code(s): E11.9 - Type 2 diabetes mellitus without complications (11) HTN (hypertension) Status: Chronic Qualifiers: Hypertension type: essential hypertension Qualified Code(s): I10 - Essential (primary) hypertension Infectious Disease HPI - Data of Consult Patient: new to practice Consult date: 09/27/17 Requesting Physician: Berry Abbasi MD Primary Care Provider: Casey Monroy DO - Consult Narrative Reason for consult: Bacteremia, right knee PJI History of present illness: Mr. 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 The patient was admitted to the hospital September 10 for a right knee septic joint in acute kidney injury. We are consulted September 27 for antibiotic recommendations regarding right knee prosthetic joint infection. Sleep, the patient's a 67-year-old male with past medical history as stated above. The patient presented to the emergency department on a hike with complaints of a 1 day history of severe right knee pain. She had an x-ray that was negative and was discharged home with instructions to come here the following morning or a DVT study. He did so in the DVT study was negative so he presented to our emergency department for additional evaluation. The patient underwent a CT scan of the right knee that showed a small foci of air in the supra patellar recess as well as some nereida-hardware lucency changes. The patient was afebrile, but he was tachycardic and had a leukocytosis with an acute kidney injury. He underwent a right knee arthrocentesis that showed greater than 100,000 total nucleate cells with 96% lymphocytes. The Gram stain and culture were negative. The patient was started on empiric IV antibiotics and admitted to the hospital for further evaluation. Denisa after admission, the patient's blood cultures that were drawn in the ER came back +2 out of 2 sets for strep mutans. He was evaluated by orthopedics recommended a 1 stage exchange of the right knee prosthetic joint infection. The patient was taken to the operating room on September 11, but due to intraoperative SVT, the patient underwent a right knee arthrotomy, I&D, synovectomy, and poly-exchange. Postoperatively, the patient's renal function worsened and he required being started on CRRT. His mental status worsened as well the patient became hypotensive. He was subsequently reintubated. Nephrology was consulted as well as pulmonology. The patient remained intubated for about and then was extubated on September 15. Then, the patient's white blood cell count has remained elevated, but is stable. His renal function has stabilized. He no longer receives dialysis.. He is no longer tachycardic. Repeat blood cultures drawn on September 18 2 sets, September 20 2 sets are all negative. Inflammatory markers are improving. Clinically, the patient appears to be doing well. Currently, the patient is on IV Levaquin and IV Zyvox. We've been asked to evaluate and make further recommendations. My exam today, the patient states that overall he feels well. He denies any additional symptoms prior to admission. He states he is not having any fevers or chills or rigors. He denies any history of fatigue or malaise. He is not having any weakness or dizziness. He denied any chest pain, shortness of breath , or cough. He states he was not nauseated or having any vomiting or diarrhea and his appetite was good. He denies any trauma or injury to the right knee prior to the onset of this pain. He denies having any redness or swelling to the knee either. He denies any oral thrush or skin lesions. He states he is ready to go home as soon as possible. The patient lives at home with his . He works at the [employer] in [place], [place]. He does drink 2-3 beers every night. No tobacco or illicit drug use. CC: Berry Abbasi MD Past Med Surg Social Fam HX - Past Medical History Attestation: Yes The following information was validated with the patient. Source: patient, old records reviewed, nursing notes reviewed Medical history: DVT, diabetes, GERD, hypertension Psychiatric history: anxiety, depression - Past Surgical History Surgical History: knee replacement (Right TKR 10 years ago), orthopedic, other ( Right BKA and left ankle ORIF 30 years ago ), other - Social History Smoking Status: Former smoker Smokeless Tobacco Status: No Alcohol use: heavy (2-3 beers per day) Drug use: none Occupational status: employed Current living situation: Home - Independent Activity Level: Independent ambulation Recent Out of Country Travel Within the Last 8 Weeks: No Exposure or Possible Exposure to Illness During Travel: No Infectious Disease-CN:Meds Aspirin [Adult Low Dose Aspirin EC] 81 mg PO DAILY 12/25/15 [History] Celecoxib [Celebrex] 100 mg PO BID 12/25/15 [History] Cholecalciferol (Vitamin D3) [Vitamin D3] 1,000 unit PO BID 12/25/15 [History] Cyanocobalamin (Vitamin B-12) [Vitamin B12] 1,000 mcg PO BID 12/25/15 [History] Cyclobenzaprine [Flexeril] 10 mg PO TID PRN 12/25/15 [History] Furosemide [Lasix] 40 mg PO DAILY 12/25/15 [History] Lisinopril [Zestril] 20 mg PO BID 12/25/15 [History] Pantoprazole Sodium [Protonix] 40 mg PO DAILY 12/25/15 [History] Sertraline [Zoloft] 100 mg PO DAILY 12/25/15 [History] Tamsulosin [Flomax] 0.4 mg PO DAILY 12/25/15 [History] Zolpidem [Ambien] 10 mg PO HS 12/25/15 [History] metFORMIN [Glucophage] 1,000 mg PO BIDWM 12/25/15 [History] Cinnamon Bark [Cinnamon] 500 mg PO BID 09/09/17 [History] 3 Allergy/AdvReac Type Severity Reaction Status Date / Time morphine AdvReac delirium Verified 09/15/17 08:37 All systems: reviewed and no additional remarkable complaints except as stated Exam - Constitutional Vitals: Temp Pulse Resp BP Pulse Ox 99.0 F 88 17 132/66 97 09/27/17 10:53 09/27/17 10:53 09/27/17 10:53 09/27/17 10:53 09/27/17 10:53 General appearance: cooperative, no acute distress, obese - Head Head exam: Present: atraumatic, normal inspection, normocephalic - Eye Eye exam: Present: EOMI, normal appearance, PERRL Pupils: Present: normal accommodation Additional comments: No endocarditis stigmata noted. - ENT ENT exam: Present: mucous membranes moist - Neck Neck exam: Present: normal inspection Additional comments: TDC noted to the right neck with transparent dressing C/D/I. - Respiratory Respiratory exam: Present: CTAB. Absent: rales, respiratory distress, rhonchi, wheezes - Cardiovascular Cardiovascular exam: Present: RRR, +S1, +S2 - GI/Abdominal GI/Abdominal exam: Present: distended (obese), normal bowel sounds, soft. Absent: tenderness - Extremities Exam Extremities exam: Present: joint swelling (Trace, right knee), pedal edema (1+ BLE). Absent: tenderness Additional comments: Right anterior knee incision with maurice intact and wound edges well- approximated. No erythema, warmth, tenderness, or fluctuance noted. Small area at the distal pole of the incision noted to be draining serous fluid. Right BKA stump without warmth, erythema, or open sores. - Neurological Exam Neurological exam: Present: alert, oriented X3, no focal deficits - Psychiatric Psychiatric exam: Present: normal affect, normal mood - Skin Skin exam: Present: dry, intact, normal color, warm Infectious Disease CN: Results - Labs CBC & Chem 7: 09/27/17 04:05 09/27/17 04:05 Cultures: Cultures 09/20/17 22:58 Blood Culture - Final Peripheral Central Cath, Picc No growth. 09/20/17 21:34 Blood Culture - Final Peripheral Venipuncture No growth. 09/18/17 15:12 Blood Culture - Final Peripheral Venipuncture No growth. 09/18/17 15:12 Blood Culture - Final Peripheral Venipuncture No growth. 09/13/17 08:41 Blood Culture - Final Peripheral Venipuncture No growth. 09/13/17 01:37 Blood Culture - Final Peripheral Venipuncture No growth. 09/13/17 01:30 Blood Culture - Final Peripheral Venipuncture No growth. 09/12/17 20:05 Anaerobic Culture - Final Right Knee No anaerobes were recovered. 09/12/17 20:05 Wound Culture - Final Right Knee Normal skin sadie. No apparent pathogens isolated. 09/12/17 20:05 Gram Stain - Final Right Knee Serology: Serology 09/15/17 09/13/17 Range/Units 10:35 12:35 Urine Creatinine 143 mg/dL Urine Sodium 52.0 mEq/L Hep Bs Antigen Nonreactive (Nonreactive) Hep Bs Antibody 0.05 mIU/mL - VTE Documentation of Mechanical Device: Intermittent pneumatic compression device Consult Discharge Plan - Plan Referrals: Lia Helms, PAC [Physician General Counselor] - 10/04/17 8:15 am Casey Monroy DO [Primary Care Provider] - 10/05/17 12:30 pm () Fiona Mobley CNP [Advanced Practice Nurse] - 10/13/17 8:20 am
[2017-09-27] MEDS: Temazepam 15 MG CAPSULE PO PRN (21:48)
[2017-09-27] MEDS: Melatonin 3 MG TABLET PO PRN (21:48)
[2017-09-28] MEDS: *HR* Heparin 5,000 UNIT/ML VIAL SQ SCH ×2 (05:22→17:43)
[2017-09-28] MEDS: *HR* OxyCODONE/APAP 5/325 TABLET PO PRN (05:29)
[2017-09-28 05:56] LABS: Basophils # 0.1 K/mcL (0.0-0.2); Basophils % 0.6 %; Eosinophils # 0.2 K/mcL (0.0-0.6); Eosinophils % 1.3 %; Hematocrit 23.8 % (37.5-50.1); Hemoglobin 7.4 g/dL (12.9-16.9); Immature Granulocytes % 0.5 % (0-4); Lymphocytes # 3.9 K/mcL (0.6-4.6); Mean Corpuscular HGB Conc 31.1 g/dL (31.6-35.5); Mean Corpuscular Hemoglobin 27.6 pg (28.0-33.3); Mean Corpuscular Volume 88.8 fL (83.0-100.0); Monocytes # 1.5 K/mcL (0.0-1.3); Monocytes % 9.5 %; Neutrophils # 9.8 K/mcL (1.6-8.9); Platelet Count 492 K/mcL (140-400); Red Blood Count 2.68 M/mcL (4.19-5.50); Red Cell Distribution Width 14.3 % (11.5-14.5); Segmented Neutrophils % 63.1 %
[2017-09-28 06:06] LABS: Calcium 8.6 mg/dL (8.6-10.8)
[2017-09-28] MEDS: Insulin LISPRO 300 UNITS/3 ML VIAL SQ SCH ×3 (09:03→17:41)
[2017-09-28] MEDS: Sennosides/Docusate Sodium TABLET PO SCH (10:17)
[2017-09-28] MEDS: Aspirin Enteric Coated 81 MG Tablet PO SCH (10:18)
[2017-09-28] MEDS: Calcium Acetate 667 MG CAPSULE PO SCH ×3 (10:18→17:43)
[2017-09-28] MEDS: hydrALAZINE 25 MG TABLET PO SCH ×2 (10:18→17:43)
--- NOTE | 2017-09-28 11:44 | Internal Med Progress Note ---
Date of Encounter: 09/28/17 Time of Encounter: 11:39 - Assessment and plan (1) Lymphocytosis Current Visit: Yes Status: Chronic Assessment and plan: Chronic stable. (2) Mantle cell lymphoma Current Visit: Yes Status: Chronic Assessment and plan: May be underlying cause of leukocytosis. Qualifiers: Lymphoma site: unspecified region Qualified Code(s): C83.10 - Mantle cell lymphoma, unspecified site (3) Septic joint Current Visit: Yes Status: Acute Assessment and plan: possible right prosthetic knee joint infection; Orthopedics review noted, s/p irrigation, debridement, synovectomy and polyexchange on 09/12/17; local wound care and activity per Orthopedics; PT evaluation noted, recommend IP rehab; social media director on board; bed is acceptable Patient refuses to go to rehabilitation, states he would prefer to be discharged home. He would not be a safe discharge as patient is unable to bear weight on his left lower extremity. synovial fluid analysis showed high WBC with lymphocyte predominance, gram stain and culture negative; 2/2 blood cultures from 09/10 grew Strep mutans, sensitive to Levaquin; continue IV Levaquin; repeat blood cultures from 09/13 negative; Continue dressing per ortho Social disease evaluation noted. Patient will be discharged on Levaquin IV when medically stable. Qualifiers: Septic arthritis location: knee Septic arthritis organism: due to unspecified organism Laterality: right Qualified Code(s): M00.9 - Pyogenic arthritis, unspecified (4) TITUS (acute kidney injury) Current Visit: Yes Status: Acute Assessment and plan: likely ATN in the setting of severe sepsis, antibiotic use, hypotension; was on diuretic/ACEI/NSAID at home; Nephrology on board; patient closely monitored, recommendations appreciated. Hold off on Permacath as patient may not need dialysis. Discontinue Shiley catheter. (5) Diabetes mellitus Current Visit: Yes Status: Chronic Assessment and plan: blood sugars noted to be well-controlled; continue Accucheck blood glucose monitoring with sliding scale insulin; diabetic diet; HbA1C 8.8%; Qualifiers: Diabetes mellitus type: type 2 Diabetes mellitus complication status: without complication Diabetes mellitus snf insulin use: without snf use Qualified Code(s): E11.9 - Type 2 diabetes mellitus without complications (6) HTN (hypertension) Current Visit: Yes Status: Chronic Assessment and plan: Controlled, continue current meds Qualifiers: Hypertension type: essential hypertension Qualified Code(s): I10 - Essential (primary) hypertension (7) DVT prophylaxis Current Visit: Yes Status: Acute Assessment and plan: Continue Heparin subcutaneous (8) ZENA (obstructive sleep apnea) Current Visit: Yes Status: Chronic Assessment and plan: continue nocturnal CPAP; noncompliant; he just received it at home prior to this admission; encouraged to start using it to help his confusion and hallucinations; (9) Anemia Current Visit: Yes Status: Chronic Assessment and plan: Hemoglobin hemoglobin continues to downtrend, ulcers or bleeding. There is possibility that the patient had some blood loss with surgery, and also possibility of wasting from Shiley catheter. We will send anemia workup , FOBT, Urine is clear (seen at bedside) Type and screen Hb today is 7.4 Discontinue Shiley catheter, as nephrology states patient does not need dialysis anymore. Qualifiers: Anemia type: unspecified type Qualified Code(s): D64.9 - Anemia, unspecified (10) Leukocytosis Current Visit: Yes Status: Chronic Assessment and plan: Reviewed labs from this month (09/09-09/25) and past two years. Patient has had chronically elevated leukocytosis, possibly lymphoma related, but high risk because of septic joint. Leukocytosis is improving Continue Levaquin only Qualifiers: Leukocytosis type: unspecified Qualified Code(s): D72.829 - Elevated white blood cell count, unspecified - Subjective Interval history: Seen and evaluated at bedside He was admitted and being managed for Right Knee septic arthritis, TITUS on CKD, He has a PMH of Mantle cell lymphoma, DM, CKD, HTN No new complains Of note, patient continued to be anemic, and there is no visible obvious source of bleeding. He did have some blood loss with surgery 09/12/17 but his Hb continues to drop. We will send anemia work up, type and screen and FOBT Patient is hemodynamically stable - Constitutional Vitals: Temp Pulse Resp BP Pulse Ox 98.2 F 110 18 164/74 98 09/28/17 11:00 09/28/17 11:00 09/28/17 11:00 09/28/17 11:00 09/28/17 11:00 General appearance: Present: A&O X 3, morbidly obese, pleasant, no acute distress, answers questions appropriately Exam: AAOX3, not in any form of distress HEENT: Not cyanotic, not pale, sclera anicteric Chest: CTAB Heart: S1, S2 only, n m/g/r Abdomen: soft, not tender Extremities: R knee in dressing, s/p Left foot amputation, Right foot unremarkable. No edema bilaterally - Head Head exam: Present: atraumatic, normocephalic - Eye Eye exam: Present: PERRL, conjuntiva pink, sclera anicteric Pupils: Present: PERRL Internal Medicine: Result - Labs CBC & Chem 7: 09/28/17 05:20 09/28/17 05:20 Labs: Short CBC 09/28/17 Range/Units 05:20 WBC 15.5 H (4.3-11.1) K/mcL Hgb 7.4 L (12.9-16.9) g/dL Hct 23.8 L (37.5-50.1) % Plt Count 492 H (140-400) K/mcL Neutrophils # 9.8 H (1.6-8.9) K/mcL BMP 09/28/17 05:20 Sodium 141 Potassium 4.0 Chloride 106 Carbon Dioxide 24 BUN 48 H Creatinine 3.29 H Glucose 103 H Calcium 8.6 - ABG Interpretation ABG results: ABG ABG pH 7.46 pH Units (7.32-7.45) H 09/18/17 14:06 ABG pCO2 36 mmHg (35-45) 09/18/17 14:06 ABG pO2 62 mmHg (85-104) L 09/18/17 14:06 ABG O2 Saturation 93 % (95-98) L 09/18/17 14:06 PT/INR, D-dimer PT 13.2 Seconds (9.4-12.1) H 09/21/17 04:00 - VTE Documentation of Mechanical Device: Intermittent pneumatic compression device Consult Discharge Plan - Plan Referrals: Lia Helms, PAC [Physician Telecom Analyst] - 10/04/17 8:15 am Casey Monroy DO [Primary Care Provider] - 10/05/17 12:30 pm () Fiona Mobley, PAPER MAKER [Advanced Practice Nurse] - 10/13/17 8:20 am Prescriptions: Levofloxacin 500 MG/100 ML [Levaquin Premix 500mg/100mL] 500 mg IVPB Q48H #7 bag
[2017-09-28 11:55] LABS: Basophils # 0.1 K/mcL (0.0-0.2); Basophils % 0.8 %; Eosinophils # 0.2 K/mcL (0.0-0.6); Eosinophils % 1.1 %; Hematocrit 25.5 % (37.5-50.1); Hemoglobin 7.9 g/dL (12.9-16.9); Immature Granulocytes % 0.5 % (0-4); Lymphocytes # 3.5 K/mcL (0.6-4.6); Lymphocytes % 23.5 %; Mean Corpuscular Hemoglobin 27.2 pg (28.0-33.3); Mean Corpuscular Volume 87.9 fL (83.0-100.0); Mean Platelet Volume 8.5 fL (9.4-12.4); Monocytes # 1.2 K/mcL (0.0-1.3); Monocytes % 8.3 %; Neutrophils # 9.7 K/mcL (1.6-8.9); Platelet Count 470 K/mcL (140-400); Red Cell Distribution Width 14.4 % (11.5-14.5); Segmented Neutrophils % 65.8 %
[2017-09-28 12:05] LABS: % Iron Saturation 6 % (20-55); Iron 11 mcg/dL (65-175); Transferrin 130 mg/dL (174-364)
[2017-09-28 12:40] LABS: Folate 5.9 ng/mL (7.0-31.4)
[2017-09-28] MEDS: Folic Acid 1 MG TABLET PO SCH (13:56)
[2017-09-28] MEDS: *HR* OxyCODONE/APAP 10/325 TABLET PO PRN ×2 (13:56→20:02)
--- NOTE | 2017-09-28 15:22 | Infectious Disease Progress No ---
Date of Encounter: 09/28/17 Time of Encounter: 15:20 - Assessment and Plan (1) Severe sepsis Current Visit: Yes Status: Resolved The patient had two SIRS criteria on admission. Likely secondary to bacteremia and right knee PJI. Improved. WBC stable. Tachycardia has resolved. Blood cultures drawn 09/10/17 were positive 2/2 sets for S. mutans. Repeat blood cultures drawn 09/13/17 2/2 sets, 09/18/17 2/2 sets, 172/2 sets negative. (2) Leukocytosis Current Visit: Yes Status: Chronic Appears chronic based on previous labs. Patient reports chronic leukocytosis is what prompted the workup that revealed his mantle cell lymphoma. Follows with [facility], Dr. Mcintyre. Not currently receiving treatment at this time. Qualifiers: Leukocytosis type: unspecified Qualified Code(s): D72.829 - Elevated white blood cell count, unspecified (3) Bacteremia Current Visit: Yes Status: Acute Causative organism S. mutans. Source unclear: PJI vs other with seeding of the right knee. Complicated due to the presence of hardware in the right knee and left ankle. Blood cultures drawn 09/10/17 were positive 2/2 sets for S. mutans. Repeat blood cultures drawn 09/13/17 2/2 sets, 09/18/17 2/2 sets, 172/2 sets negative. KEYA negative for vegetations. Due to the susceptibility pattern, the patient has been treated with Levaquin and Zyvox. Continue Levaquin 500mg IV Q48H (dose-adjusted for creatinine clearance for standard 750mg daily dose). Duration of treatment depends on the clinical picture, but the patient will require a prolonged course due to concurrent PJI. Monitor renal function and dose-adjust antibiotics. (4) Prosthetic joint infection Current Visit: Yes Status: Acute Location: Right knee. Etiology unclear. The patient denies any known trauma. Unclear if this is the primary source of the patient's infection or it was seeded from the patient's bacteremia. Late-onset. Causative organism likely S. mutans. CT scan showed findings consistent with septic arthritis. Status post bedside arthrocentesis. Large amount of purulent fluid aspirated. TNC >100,000 with 96% lymphocytes. Gram stain and culture negative. Ortho consulted. Status post right knee arthrotomy, I & D, synovectomy, and poly exchange 09/11/17. Operative note reviewed. Gross purulence noted. Intra- op cultures interpreted as normal skin sadie. The patient had SVT intra-op so the ortho team opted for DONITA surgery rather than planned one-stage exchange. ESR and CRP elevated on admission, 67 and 424, respectively. Improved--> ESR 38, CRP 151. Clinically, the knee looks great. Given that the patient is doing well clinically and has no other SIRS criteria, it is most likely that the patient's leukocytosis is chronic and not related to recurrence of knee infection or new infectious source. I did discuss with the patient and his that there is a high risk of treatment failure due to the type of procedure he had and we will have to be aggressive with antibiotics to prevent recurrence. He is agreeable to continue IV antibiotics and states he feels comfortable doing them at home. We discussed the risks, benefits, and alternatives and he is agreeable. Continue antibiotics as above. Duration of treatment depends on the clinical picture, but likely at least 6 weeks of IV antibiotics followed by oral suppressive therapy. Continue wound care and activity restrictions as outlined by the primary team. Monitor renal function and dose-adjust antibiotics. office services specialist consulted to assist with discharge planning. Will need weekly CBC, ESR, and CRP with 2x weekly BUN/Cr. Will need to consult VAT in the morning for EPIV placement. Will need weekly EPIV care per protocol. Follow up with ID 10/13/17 at 0820. Qualifiers: Encounter type: initial encounter Qualified Code(s): T84.50XA - Infection and inflammatory reaction due to unspecified internal joint prosthesis, initial encounter (5) TITUS (acute kidney injury) Current Visit: Yes Status: Acute Likely multifactorial: sepsis, nephrotoxic medications, decreased renal perfusion due to hypotension and tachycardia. Improved. Nephrology consulted and following. No further HD recommended at this time. Will need to monitor renal function closely and dose-adjust antibiotics. (6) Mantle cell lymphoma Current Visit: Yes Status: Chronic Follows with [facility] - Dr. Mcintyre. No treatment at this time. Qualifiers: Lymphoma site: unspecified region Qualified Code(s): C83.10 - Mantle cell lymphoma, unspecified site (7) SVT (supraventricular tachycardia) Current Visit: Yes Status: Resolved Sustained intra-op. Resolved. (8) ZENA (obstructive sleep apnea) Current Visit: Yes Status: Chronic (9) Anemia Current Visit: Yes Status: Chronic Likely multifactorial: acute blood loss + acute kidney injury. No active bleeding noted on exam. Transfusion parameters per the primary and nephrology teams. Qualifiers: Anemia type: unspecified type Qualified Code(s): D64.9 - Anemia, unspecified (10) Diabetes mellitus Current Visit: Yes Status: Chronic Uncontrolled. HgbA1C 8.8%. Recommend aggressive glucose monitoring to promote wound healing and prevent re- infection. Management per the primary team. Qualifiers: Diabetes mellitus type: type 2 Diabetes mellitus complication status: without complication Diabetes mellitus correction insulin use: without terminal operations supervisor use Qualified Code(s): E11.9 - Type 2 diabetes mellitus without complications (11) HTN (hypertension) Current Visit: Yes Status: Chronic Qualifiers: Hypertension type: essential hypertension Qualified Code(s): I10 - Essential (primary) hypertension - Subjective Interval history: Patient seen and examined. No acute events noted overnight. Patient resting quietly in bed with family at bedside. States discharge is on hold due to low hemoglobin. Denies fevers, chills, or rigors. Denies chest pain, shortness of breath, or cough. Denies nausea, vomiting, diarrhea, or constipation. Denies abdominal pain, urinary complaints. States he doesn't have much of an appetite. Denies pain at the surgical site, but he does complain of the left dorsal foot pain. Denies oral thrush or new skin lesions. Infect Dis PN-Objective Data - Labs CBC & Chem 7: 09/28/17 11:46 09/28/17 05:20 Labs: Laboratory Results - last 24 hr 09/27/17 09/27/17 09/27/17 07:29 10:57 16:55 WBC RBC Hgb Hct MCV MCH MCHC RDW Plt Count MPV Immature Gran % Seg Neutrophils % Lymphocytes % Monocytes % Eosinophils % Basophils % Neutrophils # Lymphocytes # Monocytes # Eosinophils # Basophils # Sodium Potassium Chloride Carbon Dioxide BUN Creatinine Est GFR ( Amer) Est GFR (Non-Af Amer) BUN/Creatinine Ratio Glucose POC Glucose 153 H 133 H 104 H Calculated Osmolality Calcium Iron % Saturation Transferrin Vitamin B12 Folate Blood Type Antibody Screen 09/27/17 09/28/17 09/28/17 21:08 05:20 05:20 WBC 15.5 H RBC 2.68 L Hgb 7.4 L Hct 23.8 L MCV 88.8 MCH 27.6 L MCHC 31.1 L RDW 14.3 Plt Count 492 H MPV 9.0 L Immature Gran % 0.5 Seg Neutrophils % 63.1 Lymphocytes % 25.0 Monocytes % 9.5 Eosinophils % 1.3 Basophils % 0.6 Neutrophils # 9.8 H Lymphocytes # 3.9 Monocytes # 1.5 H Eosinophils # 0.2 Basophils # 0.1 Sodium 141 Potassium 4.0 Chloride 106 Carbon Dioxide 24 BUN 48 H Creatinine 3.29 H Est GFR ( Amer) 23 L Est GFR (Non-Af Amer) 19 L BUN/Creatinine Ratio 15 Glucose 103 H POC Glucose 122 H Calculated Osmolality 305 H Calcium 8.6 Iron % Saturation Transferrin Vitamin B12 Folate Blood Type Antibody Screen 09/28/17 09/28/17 09/28/17 07:38 11:46 11:46 WBC 14.8 H RBC 2.90 L Hgb 7.9 L Hct 25.5 L MCV 87.9 MCH 27.2 L MCHC 31.0 L RDW 14.4 Plt Count 470 H MPV 8.5 L Immature Gran % 0.5 Seg Neutrophils % 65.8 Lymphocytes % 23.5 Monocytes % 8.3 Eosinophils % 1.1 Basophils % 0.8 Neutrophils # 9.7 H Lymphocytes # 3.5 Monocytes # 1.2 Eosinophils # 0.2 Basophils # 0.1 Sodium Potassium Chloride Carbon Dioxide BUN Creatinine Est GFR ( Amer) Est GFR (Non-Af Amer) BUN/Creatinine Ratio Glucose POC Glucose 114 H Calculated Osmolality Calcium Iron % Saturation Transferrin Vitamin B12 1240 H Folate 5.9 L Blood Type Antibody Screen 09/28/17 09/28/17 09/28/17 11:46 11:46 11:52 WBC RBC Hgb Hct MCV MCH MCHC RDW Plt Count MPV Immature Gran % Seg Neutrophils % Lymphocytes % Monocytes % Eosinophils % Basophils % Neutrophils # Lymphocytes # Monocytes # Eosinophils # Basophils # Sodium Potassium Chloride Carbon Dioxide BUN Creatinine Est GFR ( Amer) Est GFR (Non-Af Amer) BUN/Creatinine Ratio Glucose POC Glucose 208 H Calculated Osmolality Calcium Iron 11 L % Saturation 6 L Transferrin 130 L Vitamin B12 Folate Blood Type A POSITIVE Antibody Screen NEGATIVE Cultures: Cultures 09/20/17 22:58 Blood Culture - Final Peripheral Central Cath, Picc No growth. 09/20/17 21:34 Blood Culture - Final Peripheral Venipuncture No growth. 09/18/17 15:12 Blood Culture - Final Peripheral Venipuncture No growth. 09/18/17 15:12 Blood Culture - Final Peripheral Venipuncture No growth. 09/13/17 08:41 Blood Culture - Final Peripheral Venipuncture No growth. 09/13/17 01:37 Blood Culture - Final Peripheral Venipuncture No growth. 09/13/17 01:30 Blood Culture - Final Peripheral Venipuncture No growth. 09/12/17 20:05 Anaerobic Culture - Final Right Knee No anaerobes were recovered. 09/12/17 20:05 Wound Culture - Final Right Knee Normal skin sadie. No apparent pathogens isolated. 09/12/17 20:05 Gram Stain - Final Right Knee Serology 09/15/17 09/13/17 Range/Units 10:35 12:35 Urine Creatinine 143 mg/dL Urine Sodium 52.0 mEq/L Hep Bs Antigen Nonreactive (Nonreactive) Hep Bs Antibody 0.05 mIU/mL Exam - Constitutional Vitals: Temp Pulse Resp BP Pulse Ox 98.2 F 110 18 164/74 98 09/28/17 11:00 09/28/17 11:00 09/28/17 11:00 09/28/17 11:00 09/28/17 11:00 General appearance: average body habitus, cooperative, no acute distress - Head Head exam: Present: atraumatic, normal inspection, normocephalic - Eye Eye exam: Present: EOMI, normal appearance, PERRL Pupils: Present: normal accommodation Additional comments: No subconjunctival hemorrhage noted. - ENT ENT exam: Present: mucous membranes moist - Neck Neck exam: Present: normal inspection - Respiratory Respiratory exam: Present: CTAB. Absent: rales, respiratory distress, rhonchi, wheezes - Cardiovascular Cardiovascular exam: Present: RRR, +S1, +S2 - GI/Abdominal GI/Abdominal exam: Present: normal bowel sounds, soft. Absent: distended, tenderness - Extremities Exam Additional comments: Right anterior knee incision with maurice intact and wound edges well- approximated. No drainage, warmth, or erythema noted. Minimal tenderness noted. ROM not assessed. Right BKA stump with superficial abrasions, 1+ edema. No warmth, erythema, or tenderness noted. Left foot 1+ edema. No erythema, warmth, or ulcerations noted. - Neurological Exam Neurological exam: Present: alert, oriented X3, no focal deficits - Psychiatric Psychiatric exam: Present: normal affect, normal mood - Skin Skin exam: Present: dry, intact, normal color, warm - Additional findings Additional findings: TDC noted to the right neck/upper chest with transparent dressing C/D/I. - VTE Documentation of Mechanical Device: Intermittent pneumatic compression device Consult Discharge Plan - Plan Referrals: Lia Helms, PAC [Physician Janitorial Maintenance Worker] - 10/04/17 8:15 am Casey Monroy DO [Primary Care Provider] - 10/05/17 12:30 pm () Fiona Mobley CNP [Advanced Practice Nurse] - 10/13/17 8:20 am Prescriptions: Levofloxacin 500 MG/100 ML [Levaquin Premix 500mg/100mL] 500 mg IVPB Q48H #7 bag
[2017-09-28] MEDS: Melatonin 3 MG TABLET PO PRN (20:02)
[2017-09-29] MEDS: hydrALAZINE 25 MG TABLET PO SCH ×2 (00:41→09:01)
[2017-09-29] MEDS: Insulin LISPRO 300 UNITS/3 ML VIAL SQ SCH ×2 (01:22→08:55)
[2017-09-29] MEDS: Sennosides/Docusate Sodium TABLET PO SCH ×2 (01:23→09:00)
[2017-09-29] MEDS: *HR* OxyCODONE/APAP 5/325 TABLET PO PRN (04:43)
[2017-09-29 04:56] LABS: Basophils # 0.1 K/mcL (0.0-0.2); Basophils % 0.7 %; Eosinophils # 0.3 K/mcL (0.0-0.6); Eosinophils % 1.7 %; Hematocrit 25.2 % (37.5-50.1); Hemoglobin 7.6 g/dL (12.9-16.9); Immature Granulocytes % 0.5 % (0-4); Lymphocytes # 4.2 K/mcL (0.6-4.6); Lymphocytes % 28.5 %; Mean Corpuscular HGB Conc 30.2 g/dL (31.6-35.5); Mean Corpuscular Hemoglobin 26.9 pg (28.0-33.3); Mean Platelet Volume 8.7 fL (9.4-12.4); Monocytes # 1.2 K/mcL (0.0-1.3); Monocytes % 8.3 %; Neutrophils # 8.9 K/mcL (1.6-8.9); Nucleated Red Blood Cells 0.1 /100 WBC (0); Platelet Count 492 K/mcL (140-400); Red Blood Count 2.83 M/mcL (4.19-5.50); Red Cell Distribution Width 14.2 % (11.5-14.5); Segmented Neutrophils % 60.3 %
[2017-09-29 04:59] LABS: Calcium 9.1 mg/dL (8.6-10.8); Potassium 4.1 mEq/L (3.5-4.5)
[2017-09-29] MEDS: *HR* Heparin 5,000 UNIT/ML VIAL SQ SCH (06:16)
[2017-09-29 08:00] VITALS: BP 130/73
[2017-09-29] MEDS: Folic Acid 1 MG TABLET PO SCH (09:00)
[2017-09-29] MEDS: Aspirin Enteric Coated 81 MG Tablet PO SCH (09:01)
[2017-09-29] MEDS: Calcium Acetate 667 MG CAPSULE PO SCH (09:01)
--- NOTE | 2017-09-29 09:04 | Discharge Summary ---
Date of Encounter: 09/29/17 Time of Encounter: 09:04 - Discharge Diagnosis (1) Lymphocytosis Priority: Secondary Status: Chronic (2) Mantle cell lymphoma Priority: Secondary Status: Chronic Qualifiers: Lymphoma site: unspecified region Qualified Code(s): C83.10 - Mantle cell lymphoma, unspecified site (3) Septic joint Priority: Primary Status: Acute Qualifiers: Septic arthritis location: knee Septic arthritis organism: due to unspecified organism Laterality: right Qualified Code(s): M00.9 - Pyogenic arthritis, unspecified (4) TITUS (acute kidney injury) Priority: Primary Status: Acute (5) Diabetes mellitus Priority: Secondary Status: Chronic Qualifiers: Diabetes mellitus type: type 2 Diabetes mellitus complication status: without complication Diabetes mellitus long goods drier insulin use: without mcfp use Qualified Code(s): E11.9 - Type 2 diabetes mellitus without complications (6) HTN (hypertension) Priority: Secondary Status: Chronic Qualifiers: Hypertension type: essential hypertension Qualified Code(s): I10 - Essential (primary) hypertension (7) DVT prophylaxis Priority: Secondary Status: Acute (8) ZENA (obstructive sleep apnea) Priority: Secondary Status: Chronic (9) Anemia Priority: Secondary Status: Chronic Qualifiers: Anemia type: unspecified type Qualified Code(s): D64.9 - Anemia, unspecified (10) Leukocytosis Priority: Secondary Status: Chronic Qualifiers: Leukocytosis type: unspecified Qualified Code(s): D72.829 - Elevated white blood cell count, unspecified - Discharge Medications Prescriptions: OxyCODONE/APAP 10/325 [Percocet 10/325 MG] 1 each PO Q6HR PRN #20 tablet PRN Reason: Severe Pain (7-10) hydrALAZINE [HydrALAZINE] 25 mg PO Q8HR #90 tablet Calcium Acetate [Phos-LO] 667 mg PO TIDWM #90 capsule Ferrous Sulfate 325 mg PO BIDWM #60 tablet Folic Acid 1 mg PO DAILY #30 tablet Furosemide [Lasix] 20 mg PO DAILY #30 tablet Levofloxacin 500 MG/100 ML [Levaquin Premix 500mg/100mL] 500 mg IVPB Q48H #7 bag Lidocaine Patch [Lidoderm 5% patch] 1 each TP DAILY #30 adh..patch metFORMIN [Glucophage] 500 mg PO BIDWM #60 tablet Metoprolol [Lopressor] 25 mg PO BID #60 tablet Home Medications: Aspirin [Adult Low Dose Aspirin EC] 81 mg PO DAILY 12/25/15 [History] Cholecalciferol (Vitamin D3) [Vitamin D3] 1,000 unit PO BID 12/25/15 [History] Cyanocobalamin (Vitamin B-12) [Vitamin B12] 1,000 mcg PO BID 12/25/15 [History] Cyclobenzaprine [Flexeril] 10 mg PO TID PRN 12/25/15 [History] Pantoprazole Sodium [Protonix] 40 mg PO DAILY 12/25/15 [History] Sertraline [Zoloft] 100 mg PO DAILY 12/25/15 [History] Tamsulosin [Flomax] 0.4 mg PO DAILY 12/25/15 [History] Zolpidem [Ambien] 10 mg PO HS 12/25/15 [History] Cinnamon Bark [Cinnamon] 500 mg PO BID 09/09/17 [History] Levofloxacin 500 MG/100 ML [Levaquin Premix 500mg/100mL] 500 mg IVPB Q48H #7 bag 09/28/17 [Rx] Calcium Acetate [Phos-LO] 667 mg PO TIDWM #90 capsule 09/29/17 [Rx] Ferrous Sulfate 325 mg PO BIDWM #60 tablet 09/29/17 [Rx] Folic Acid 1 mg PO DAILY #30 tablet 09/29/17 [Rx] Furosemide [Lasix] 20 mg PO DAILY #30 tablet 09/29/17 [Rx] Lidocaine Patch [Lidoderm 5% patch] 1 each TP DAILY #30 adh..patch 09/29/17 [Rx] Metoprolol [Lopressor] 25 mg PO BID #60 tablet 09/29/17 [Rx] OxyCODONE/APAP 10/325 [Percocet 10/325 MG] 1 each PO Q6HR PRN #20 tablet [Rx] Sennosides/Docusate Sodium [Senna Plus] 2 each PO BID PRN #30 tablet 09/29/17 [ Rx] hydrALAZINE [HydrALAZINE] 25 mg PO Q8HR #90 tablet 09/29/17 [Rx] metFORMIN [Glucophage] 500 mg PO BIDWM #60 tablet 09/29/17 [Rx] Allergies/Adverse Reactions: 3 Allergy/AdvReac Type Severity Reaction Status Date / Time morphine AdvReac delirium Verified 09/15/17 08:37 Date of admission: 09/10/17 16:52 Primary care physician: Casey Monroy DO Consults: 09/12/17 07:31 Consult to Occupational Therapy [CONS] Routine Comment: Evaluate, develop and implement POC Reason for Consult: OT eval Consult to Physical Therapy [CONS] Routine Comment: Evaluate, develop and implement POC Reason for Consult: PT EVAL 09/13/17 08:19 Consult to Occupational Therapy [CONS] Routine Comment: Evaluate, develop and implement POC Reason for Consult: post knee surgery Consult to Orthopedic Navigator [CONS] [CONS] Routine Consult to Physical Therapy [CONS] Routine Comment: Evaluate, develop and impliment POC Reason for Consult: post knee surgery Consult to Tracing Lathe Set Up Operator [CONS] Routine Reason for SW Consult: post op joint replacement RT Post Op Consult [CONS] Routine 09/13/17 09:56 Consult to Cardiology [CONS] Stat Comment: Consulting Provider: Cardiology Hendricks Reason for Consult: NSTEMI, SVT, hypotension Call Completed: Yes 09/14/17 11:19 Consult to Nutrition [CONS] Stat Comment: Consulting Provider: NUTRITION Reason for Dietary Consult: TF Start and Manage 09/15/17 10:00 Consult to Dialysis [CONS] ONCE 09/17/17 08:45 Consult to Dialysis [CONS] ONCE 09/19/17 08:45 Consult to Dialysis [CONS] ONCE 09/20/17 11:12 Consult to Tracing Lathe Set Up Operator [CONS] Routine Reason for SW Consult: will need chair time at [facility]; permacath being placed tomorrow 09/21/17 08:15 Consult to Dialysis [CONS] ONCE 09/23/17 08:15 Consult to Dialysis [CONS] ONCE 09/26/17 11:32 Consult to Infectious Diseases [CONS] Routine Consulting Provider: Infectious Disease Krystal Reason for Consult: Septic joint antibiotic recommendations. Call Completed: Yes 09/28/17 10:59 Consult to Invasive Line Access Team [CONS] Routine Reason for Consult: home atb Line Type: EPIV Discharging clinician: Berry Abbasi Anticipated date of discharge: 09/29/17 - Patient Status Disposition: Home Health Service Condition: Fair Functional capacity at discharge: uses cane/walker Overall status at discharge: patient is progressing back to baseline - Discharge Instructions Follow Up With: Lia Helms, BEBETO [Physician Engineer Soils] - 10/04/17 8:15 am Casey Monroy DO [Primary Care Provider] - 10/05/17 12:30 pm () Fiona Mobley COREMAKER BENCH [Advanced Practice Nurse] - 10/13/17 8:20 am Additional Instructions: your metformin was decreased to 500mg bid Follow up with your primary doctor , orthopedic surgeon, facilities director and infectious disease - Diet and Activity Activity: as per physical therapy Diet: low fat, low cholesterol, low salt diet Interval History: See below Hospital course: Mr. Pickard is a 67 YO M with PMH of DM, HTN, GERD, CKD, OA s/p RTKR 10 years ago, anxiety, depression, and mantle cell lymphoma. The patient was admitted to the hospital September 10 for a right knee septic joint and acute kidney injury after the patient presented to the emergency department with complaints of a 1 day history of severe right knee pain. He had an x-ray that was negative and was discharged home with instructions to come to [facility] for a DVT study. He did so in the DVT study was negative so he presented to our emergency department for additional evaluation. The patient underwent a CT scan of the right knee that showed a small foci of air in the supra patellar recess as well as some nereida-hardware lucency changes. The patient was afebrile, but he was tachycardic and had a leukocytosis with an acute kidney injury. He underwent a right knee arthrocentesis that showed greater than 100,000 total nucleate cells with 96% lymphocytes. The Gram stain and culture were negative. The patient was started on empiric IV antibiotics and admitted to the hospital for further evaluation. Blood cultures that were drawn in the ER came back +2 out of 2 sets for strep mutans. He was evaluated by orthopedics recommended a 1 stage exchange of the right knee prosthetic joint infection. on 09/11, he went to OR but due to intraoperative SVT, the patient underwent a right knee arthrotomy, I&D, synovectomy, and poly-exchange. Postoperatively, the patient's renal function worsened and he required being started on CRRT. His mental status worsened as well the patient became hypotensive. He was subsequently reintubated. Nephrology was consulted as well as pulmonology. He was extubated on September 15. Since then, the patient's white blood cell count has remained elevated, but is stable and improving. His renal function has stabilized. He no longer receives dialysis. Repeat blood cultures 09/18 2 sets, September 20 2 sets are all negative. Inflammatory markers are improving. Clinically, the patient appears to be doing well. His electrolytes have remained stable and he is no longer in need for HD He was reviewed by PTOT that recommends in-patient rehab, patient however, opted to go home with home health for infusion/Nursing/PTOT and area director of home health sales Infectious disease was consulted and recommended continuation of levaquin 500mg q48hr, he is discharged on this and his home medications Follow up with PCP, Orthopedics, Front Desk Supervisor, Infectious disease Plan of care discussed, verbalized understanding - Time Spent with Patient Total time spent providing and/or coordinating discharge services: Greater than 30 minutes - Constitutional Vitals: Temp Pulse Resp BP Pulse Ox 98.0 F 90 18 130/73 97 09/29/17 07:48 09/29/17 07:48 09/29/17 07:48 09/29/17 07:48 09/29/17 07:48 AAOX3, not in any form of distress HEENT: Not cyanotic, not pale, sclera anicteric Chest: CTAB Heart: S1, S2 only, n m/g/r Abdomen: soft, not tender Extremities: R knee in dressing, s/p Left foot amputation, Right foot unremarkable. No edema bilaterally General appearance: Present: A&O X 3, morbidly obese, pleasant, no acute distress, answers questions appropriately - VTE Documentation of Mechanical Device: Intermittent pneumatic compression device
--- NOTE | 2017-09-29 09:06 | Physician Discharge Referral ---
Home Health/Hosp Referral Info Transfer to: Home Health Attending Provider: Lenka Abbasi Provider in Charge Post Discharge: PCP - Diagnosis (1) Lymphocytosis Priority: Secondary Status: Chronic (2) Mantle cell lymphoma Priority: Secondary Status: Chronic (3) Septic joint Priority: Primary Status: Acute (4) TITUS (acute kidney injury) Priority: Primary Status: Acute (5) Diabetes mellitus Priority: Secondary Status: Chronic (6) HTN (hypertension) Priority: Secondary Status: Chronic (7) DVT prophylaxis Priority: Secondary Status: Acute (8) ZENA (obstructive sleep apnea) Priority: Secondary Status: Chronic (9) Anemia Priority: Secondary Status: Chronic (10) Leukocytosis Priority: Secondary Status: Chronic - Respiratory Orders Oxygen / L per min (2-3 L per minute PRN) Smoking Cessation: Smoking cessation has been advised. For more information, call the [place] Tobacco Quit Line at 9-116-FFUT-NOW. - Diet/Nutrition Diet/Nutrition Orders: Renal, Cardiac - Activity Activity Orders: Chair, Walker - Services Needed Following services are medically necessary services: Nursing, Home Health Aide, Physical Therapy, Occupational Therapy, Home Infusion - Transfer Medications Prescriptions: OxyCODONE/APAP 10/325 [Percocet 10/325 MG] 1 each PO Q6HR PRN #20 tablet PRN Reason: Severe Pain (7-10) hydrALAZINE [HydrALAZINE] 25 mg PO Q8HR #90 tablet Calcium Acetate [Phos-LO] 667 mg PO TIDWM #90 capsule Ferrous Sulfate 325 mg PO BIDWM #60 tablet Folic Acid 1 mg PO DAILY #30 tablet Furosemide [Lasix] 20 mg PO DAILY #30 tablet Levofloxacin 500 MG/100 ML [Levaquin Premix 500mg/100mL] 500 mg IVPB Q48H #7 bag Lidocaine Patch [Lidoderm 5% patch] 1 each TP DAILY #30 adh..patch metFORMIN [Glucophage] 500 mg PO BIDWM #60 tablet Metoprolol [Lopressor] 25 mg PO BID #60 tablet Home Medications: Aspirin [Adult Low Dose Aspirin EC] 81 mg PO DAILY 12/25/15 [History] Cholecalciferol (Vitamin D3) [Vitamin D3] 1,000 unit PO BID 12/25/15 [History] Cyanocobalamin (Vitamin B-12) [Vitamin B12] 1,000 mcg PO BID 12/25/15 [History] Cyclobenzaprine [Flexeril] 10 mg PO TID PRN 12/25/15 [History] Pantoprazole Sodium [Protonix] 40 mg PO DAILY 12/25/15 [History] Sertraline [Zoloft] 100 mg PO DAILY 12/25/15 [History] Tamsulosin [Flomax] 0.4 mg PO DAILY 12/25/15 [History] Zolpidem [Ambien] 10 mg PO HS 12/25/15 [History] Cinnamon Bark [Cinnamon] 500 mg PO BID 09/09/17 [History] Levofloxacin 500 MG/100 ML [Levaquin Premix 500mg/100mL] 500 mg IVPB Q48H #7 bag 09/28/17 [Rx] Calcium Acetate [Phos-LO] 667 mg PO TIDWM #90 capsule 09/29/17 [Rx] Ferrous Sulfate 325 mg PO BIDWM #60 tablet 09/29/17 [Rx] Folic Acid 1 mg PO DAILY #30 tablet 09/29/17 [Rx] Furosemide [Lasix] 20 mg PO DAILY #30 tablet 09/29/17 [Rx] Lidocaine Patch [Lidoderm 5% patch] 1 each TP DAILY #30 adh..patch 09/29/17 [Rx] Metoprolol [Lopressor] 25 mg PO BID #60 tablet 09/29/17 [Rx] OxyCODONE/APAP 10/325 [Percocet 10/325 MG] 1 each PO Q6HR PRN #20 tablet [Rx] Sennosides/Docusate Sodium [Senna Plus] 2 each PO BID PRN #30 tablet 09/29/17 [ Rx] hydrALAZINE [HydrALAZINE] 25 mg PO Q8HR #90 tablet 09/29/17 [Rx] metFORMIN [Glucophage] 500 mg PO BIDWM #60 tablet 09/29/17 [Rx] Allergies/Adverse Reactions: 3 Allergy/AdvReac Type Severity Reaction Status Date / Time morphine AdvReac delirium Verified 09/15/17 08:37 Certification: Further, I certify that my clinical findings support that this patient is homebound (i.e. absences from home require considerable and taxing effort and are for medical reasons or congregational services or infrequently or short duration when for other reasons) because: Homebound Reason: Patient requires assistance of a person or device to safely leave home, Post-surgery restriction and or conditions limit ability to leave home Attestation: My signature below is to certify that this patient is under my care and that I, or nurse practitioner, or a physician's title i instructional assistant working with me, has a face-to -face encounter with this patient.
[2017-09-29] MEDS: Levofloxacin 500 MG/100 ML 500 MG/100 ML BAG IVPB SCH (11:13)
[2017-09-29] MEDS: *HR* OxyCODONE/APAP 10/325 TABLET PO PRN (11:17)
--- NOTE | 2017-09-29 17:32 | Event Note ---
Date of Encounter: 09/29/17 Time of Encounter: 12:00 Patient is now POD#16 s/p Right Knee - Poly Exchange, washout and closure by Dr. Barney. Patient has recovered from his infections well and is being discharged today to home. He does still have maurice in place. Maurice removed by this provider after cleansing. Distal incision noted to have serous drainage with palpation of the knee. Dr. Barney came to bedside for evaluation as well. ABD pads and Kerlex as well as PAKO wrap applied. Recommend BID or more often if saturated dressing changes to right knee and close follow up with our office. Patient has Home health established and our office will provide instruction for incision care and dressing changes to those orders. Patient encouraged to wear brace with activity and avoid bending of knee.
== END 2017-09-29 12:40 | disposition home health service (06) | DRG 485 ==
LOC: EMEROO 09:45 → 3NENU 09:45 → SUATTDRO 16:52 → 2NNU 09-12 21:51 → ICNU 09-13 01:57 → 2ANU 09-15 21:43
PROVIDERS: ADMIT Student in an Organized Health Care Education/Training Program; ATTEND Internal Medicine